=== PATIENT | male | born 1945 | race Caucasian/White ===

== ENCOUNTER 2017-05-27 13:07 | Inpatient (IN) | payer MEDICARE ==
[2017-05-27] MEDS ORDERED: ISOVUE-370 76%-LOCM 1 ML ONE (13:28)
[2017-05-27 14:01] LABS: #Basophils 0.1 thou/uL (0.0-0.2); #Eosinphils 0.1 thou/uL (0.0-0.7); #Lymphocytes 1.6 thou/uL (1.20-3.40); #Monocytes 0.6 thou/uL (0.11-0.59); #Neutrophils 12.2 thou/uL (1.40-6.50); %Basophils 0.6 % (0.0-1.0); %Eosinophils 0.4 % (0.0-10.0); %Monocytes 3.9 % (0.0-10.0); Hematocrit 44.8 % (42.0-52.0); Mean Platelet Volume 7.1 fL (7.4-10.4); White Blood Cell (WBC) Count 14.5 thou/uL (4.8-10.8)
[2017-05-27 14:22] LABS: ALT (SGPT) 17 U/L (8-55); AST (SGOT) 29 U/L (5-34); Alkaline Phosphatase 55 U/L (40-150); Anion Gap 17 mmol/L (10-20); BUN (Urea Nitrogen) 25 mg/dL (8.4-25.7); Bilirubin, Total 0.6 mg/dL (0.2-1.2); Calc. Creatinine Clearance 0 mL/min (70-130); Calcium 9.6 mg/dL (7.8-10.44); Carbon Dioxide 27 mmol/L (23-31); Chloride 99 mmol/L (98-107); Estimated GFR-MDRD 44; Globulin 3.5 g/dL (2.4-3.5); Protein, Total 7.7 g/dL (5.8-8.1)
[2017-05-27 14:27] LABS: Troponin I 0.014 ng/mL (< 0.028)
[2017-05-27 15:37] LABS: Lactic Acid - Sepsis 2.7 mmol/L (0.5-2.2)
[2017-05-27 15:45] LABS: CK (CPK) 181 U/L (30-200); Lipase 27 U/L (8-78)
[2017-05-27] MEDS ORDERED: Pantoprazole 40 MG VIAL ONE (16:05)
[2017-05-27 16:08] LABS: Prothrombin Time 14.7 SEC (12.0-14.7)
[2017-05-27 16:09] LABS: PTT 29.6 SEC (22.9-36.1)
[2017-05-27] MEDS ORDERED: Pantoprazole 80 MG, Admixture Fee 1 EACH in Sodium Chloride 0.9% 100 ML IVP SCH (16:15)
[2017-05-27] MEDS ORDERED: Ondansetron HCl/PF 4 MG/2 ML Vial ONE (16:57)
[2017-05-27] MEDS ORDERED: Morphine 4 MG/ML Carpuject ONE (16:57)
[2017-05-27] MEDS ORDERED: Piperacillin/Tazobactam 3.375 GM, Admixture Fee 1 EACH in Sodium Chloride 0.9% 100 ML IVPB SCH (17:15)
--- NOTE | 2017-05-27 17:31 | CT ---
CT ABDOMEN AND PELVIS WITH IV CONTRAST: Date: 05/27/17 HISTORY: Nausea, vomiting, and abdominal pain radiating to the back, periumbilical pain. FINDINGS: There are no previous exams for comparison. The lung bases are clear. A couple of low density lesions in the superior aspect of the liver measur ing 8.0 mm and 11.0 mm, respectively. No calcified gallstones are seen. Calcified granulomas are not ed in the spleen. The renal glands, right kidney, and pancreas are unremarkable. There is a peripherally calcified low density mass in the gastrohepatic ligament anterior to the bod y of the pancreas measuring 3.0 x 3.0 x 4.5 cm. There is a heterogeneously enhancing mass in the superior pole of the left kidney measuring 3.5 x 3. 2 x 4.5 cm. Other low density lesions in the left kidney are likely cysts. No thrombus is seen in th e left renal vein. No free air is identified. There is free fluid in the lower abdomen and a tiny am ount in the pelvis. There are vascular calcifications without evidence of aneurysmal dilatation of t he abdominal aorta. There is thickening of the wall of the colon and some of the small bowel loops. No definite lymphadenopathy is identified. The urinary bladder is markedly distended. There are dege nerative changes in the spine. There is suggestion of omental thickening in the lower anterior abdomen. IMPRESSION: 1. Heterogeneously enhancing left renal mass (3.5 x 3.2 x 4.5 cm) highly suspicious for renal cell carcinoma. 2. Indeterminate low density lesion in the liver. 3. Peripherally calcified low density mass in the gastrohepatic ligament measuring 3.0 x 3.0 x 2.5 cm. 4. Calcified granulomas in the spleen. 5. Free fluid in the abdomen and pelvis. 6. Thickening of the toro of the colon and some of the small bowel loops. 7. Probable Omental thickening suspicious for metastatic disease. POS: H
[2017-05-27] MEDS ORDERED: Midazolam HCl 2 mg/2 ml Vial ONE ×2 (18:42→19:22)
[2017-05-27] MEDS ORDERED: Norepinephrine 8 MG/0.9% NS 0 ML ONE (18:42)
[2017-05-27] MEDS ORDERED: Fentanyl 100 MCG/2 ML VIAL ONE ×4 (18:42→20:42)
--- NOTE | 2017-05-27 19:08 | HP ---
HISTORY OF PRESENT ILLNESS: Manuel Cassidy is a 71-year-old male, retired rangel, presents to the mergewiy room with acute onset of generalized abdominal pain radiating to his back last night. He w as evaluated by Dr. Hicks. He has a rigid abdomen. White count is 14, hemoglobin 14, 84% neutro phils. Sodium 138, potassium 4.7, creatinine 1.55 (chronic). Lactic acid 2.7. The patient underwe nt a CAT scan of the abdomen and pelvis revealing some free fluid in his abdomen, a left renal mass 3.5 x 4.5 cm, multiple liver densities, gastrohepatic ligament 3 x 3 x 2.5 cm density, splenic granu philip. Findings consistent with renal cell carcinoma with mets. He has omental thickening, thicken ed small bowel and colon. The patient has such a rigid abdomen and pain that I am seeing him for th at concern. ALLERGIES: None. TOBACCO: None. ALCOHOL: None. MEDICATIONS: Aspirin 81 mg a day, carvedilol 25 mg a day, Crestor 40 mg a day, Lasix 40 mg a day, CoQ10 of 100 mg a day, multivitamins daily, valsartan 80 mg a day, duloxetine 30 mg a day, vitamin D 3 150 mg a day, B complex daily. 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 There is evidence of 2013, colonoscopy with polypectomy by Dr. Ordoñez, tubular adenoma. PAST MEDICAL HISTORY: Lymphoma, right groin biopsy, treated [place] [address] Grayson, chemoradiation therapy, no evidence of disease in 2001. He does not recall the urologist's name he saw for his BP H and TURP. He is followed by Dr. Richardson for his cardiomyopathy. He has had three defibrillators , most recent one placed two months ago, EF is 25%, cardiomyopathy, COPD. Noted tobacco cessation i n the past. REVIEW OF SYSTEMS: Ten point noncontributory. PHYSICAL EXAMINATION: GENERAL: The patient is in acute abdominal pain. VITAL SIGNS: Weight 56 kilograms, blood pressure 156/79, pulse 63, respiratory rate 18. HEAD, EYES, EARS, NOSE AND THROAT: Unremarkable. LUNGS: Clear to auscultation. CARDIAC: Regular rate and rhythm without murmur or gallop. ABDOMEN: Nondistended. It is rigid with peritoneal signs. I cannot touch it without exquisite ten derness; it is board like. EXTREMITIES: Unremarkable. LABORATORIES: As noted above. ASSESSMENT AND PLAN: 1. Rigid abdomen, acute onset of abdominal pain, nausea, vomiting, and had a bloody stool in the em ergency room. On CAT scan, he has thickened small bowel and colon. We would recommend laparotomy t o rule out ischemic necrotic bowel. Further recommendations based on operative findings. 2. Evidence of left renal cell carcinoma with metastatic disease, liver metastasis, omental thicken ing and gastrohepatic ligament mass, 3. History of lymphoma. 4. History of cardiomyopathy with defibrillator, followed by Dr. Richardson. 5. History of chronic obstructive pulmonary disease. The patient was well prior to this illness an d functional and doing well.
[2017-05-27] MEDS ORDERED: Etomidate 20 MG/10 ML VIAL ONE (19:32)
[2017-05-27] MEDS ORDERED: Succinylcholine Chloride 20 MG/ML 10 ml SYRINGE FS ONE (19:32)
[2017-05-27] MEDS ORDERED: Lidocaine 1% PF 5 ML VIAL ONE (19:32)
--- NOTE | 2017-05-27 19:44 | ER ---
DATE OF SERVICE: 05/27/2017 Please refer to the patient's electronic medical record for further details of his visit. In summary, the patient presents with acute onset nausea and vomiting earlier today. He has fairly significant abdominal pain associated with this. He denies any chest pain or shortness of breath, h as had no fever at home. He has not traveled recently, has had no sick contacts, and has not been o n antibiotics in the recent past. He denies any bad food that he may have ingested. Evaluation rev eals findings concerning for renal cell carcinoma with multiple metastases. He will require further evaluation for this. In addition, with a rigid abdomen, colonic wall thickening on CT imaging, and a bloody stool in the ER, combined with an elevated lactate, and concern for ischemic colitis. Bec ause of this, I discussed the case with Dr. Fulton on the Surgical Service, who evaluated the patien t in the emergency department and plans to take the patient to the operating room for further evalua tion. The patient was also evaluated by the Machine Lead Burner Team for medical evaluation gi nay his concurrent findings concerning for new onset metastatic cancer. He remained hemodynamically stable throughout his ER stay. His pain improved mildly with medication. He was given antibiotics as well. The patient and his family were updated the findings and plan, and all their questions we re answered up to this point. He is stable at the time of admission to the ER, though with a guarde d prognosis given the above findings and has multiple comorbid conditions.
[2017-05-27] MEDS ORDERED: Dextrose 50% Abboject 50 ML SYRINGE SLOW IVP PRN (20:31)
[2017-05-27] MEDS ORDERED: hydrALAZINE 20 MG/ML VIAL SLOW IVP PRN (20:31)
[2017-05-27] MEDS ORDERED: Ventilator Sedation Protocol 1 EACH FS SCH (20:45)
[2017-05-27] MEDS ORDERED: Sodium Chloride 0.9% 1,000 ML IV SCH (20:45)
[2017-05-27] MEDS ORDERED: DISCONTINUE PREVIOUS NARCOTIC PAIN MEDICATIONS AND BENZODIAZEPINES FS SCH (20:52)
[2017-05-27] MEDS ORDERED: Propofol 1,000 MG/100 ML VIAL IV PRN (20:52)
[2017-05-27] MEDS ORDERED: Fentanyl 20 MCG/ML 250 ML IVPB SCH (20:52)
[2017-05-27] MEDS ORDERED: Lorazepam 2 MG/ML VIAL SLOW IVP PRN (20:52)
[2017-05-27] MEDS ORDERED: Acetaminophen 325 MG TAB PO PRN (20:56)
[2017-05-27] MEDS ORDERED: Vancomycin HCl 750 GM in Premix Bag 1 BAG IVPB SCH (20:56)
[2017-05-27] MEDS ORDERED: Morphine 4 MG/ML Carpuject SLOW IVP SCH (20:56)
[2017-05-27] MEDS ORDERED: Heparin 5,000 UNITS/ML VIAL SC SCH (21:00)
[2017-05-27] MEDS ORDERED: Famotidine/PF 20 mg/2ml Vial SLOW IVP SCH (21:00)
[2017-05-27] MEDS ORDERED: Ondansetron HCl/PF 4 MG/2 ML Vial IVP PRN (21:09)
[2017-05-27] MEDS ORDERED: Promethazine HCl 25 MG/ML VIAL IM/IV PRN (21:09)
--- NOTE | 2017-05-27 21:15 | CON ---
DATE OF CONSULTATION: 05/27/2017 REASON FOR CONSULTATION: Management of heart failure in the setting of an acute abdomen. PRIMARY IT TECHNICAL SUPPORT SPECIALIST: Dr. Cody Richardson. HISTORY OF PRESENT ILLNESS: Mr. Cassidy is a very pleasant 71-year-old white gentleman, who comes to the hospital for nausea, vomiting, and abdominal pain. He was evaluated in the ER and was diagnose d with an acute abdomen and is scheduled to undergo surgery. The CT of the abdomen showed free flui d as well as a mass in his kidney, this highly suspicious for renal cell carcinoma that might be met astatic to his omentum. He is a patient of Dr. Richardson who follows him for nonischemic cardiomyopa thy with an EF of 30% to 35%. Last time he was seen in the office was in March of this year, he hannon d normal OptiVol and he just had a biventricular AICD placed in January of this year. He has an underl enrrique left bundle branch block and mild CAD and a heart catheterization done to evaluate his LV dysfu nction. Currently, Mr. Cassidy's only complaint is abdominal pain. PAST MEDICAL HISTORY: 1. Nonischemic cardiomyopathy, EF of 30% to 35%. 2. Status post biventricular AICD. 3. Left bundle branch block. 4. Mild coronary artery disease. 5. Diastolic dysfunction. 6. Hyperlipidemia. 7. History of tobacco use. 8. Chronic obstructive pulmonary disease. 9. Non-Hodgkin's lymphoma. 10. History of noncompliance in the past. 11. Chronic kidney disease, stage 3. 12. Cough due to DANYELL inhibitors. PAST SURGICAL HISTORY: 1. Biventricular AICD generator change, just a few months ago. 2. Appendectomy. 3. Left second and third digit amputations after some accident. 4. Right thumb surgery with removal of joint after trauma injury. ALLERGIES: No known drug allergies. OUTPATIENT MEDICATIONS: Include; 1. Aspirin 81 daily. 2. CoQ10. 3. Coreg 12.5 mg b.i.d. 4. Crestor 40 mg a day. 5. Lasix 40 mg daily. 6. Valsartan 80 mg a day. 7. Vitamin B12. 8. Vitamin D3. FAMILY HISTORY: Noncontributory. SOCIAL HISTORY: Continues to smoke cigarettes a day, but he has had up to about 2-1/2 packs a day at times. No alcohol or drug use. REVIEW OF SYSTEMS: A 12-point review of systems was done, it is all negative unless stated in the h istory of present illness. PHYSICAL EXAMINATION: VITAL SIGNS: Temperature 98.2, pulse 63, respiratory rate 18, satting 97% on room air, blood pressu re 156/79. GENERAL: Awake and alert. He is oriented to person and place, difficult to time, in moderate pain. HEENT: Normocephalic, atraumatic. NECK: Supple. LUNGS: Clear. CARDIOVASCULAR: S1, S2. No S3 or S4. There is a grade 3/6 systolic murmur in the right upper ster nal border. ABDOMEN: Painful to palpation with guarding and rebound. EXTREMITIES: No edema. SKIN: Warm and dry. LABORATORY DATA AND IMAGING: Laboratory work was reviewed. White count of 14, hemoglobin of 14, he matocrit of 44, platelet count of 151. Coags were negative. Chemistries were unremarkable except f or creatinine of 1.55. Lactic acid of 2.7, troponin was negative x1. Lipase was 27. Most recent echocardiogram was done in the office in 2013 with an EF of 30% to 35%, moderate MR, [place] stolic dysfunction and sclerotic aortic valve. ASSESSMENT AND PLAN: 1. Acute abdomen: Emergent surgery plan per Dr. Fulton. He given the emergency nature of his situ ation, it is not an issue to take him to the OR, he will need to go at this time. He agrees to proc eed. His risk of an LA is intermediate given his mild coronary artery disease, high risk is just go ing into congestive heart failure, so we would recommend judicious use of fluids and I would prefer Levophed as a pressor if it were to be needed for septic type picture. If it is for heart failure t ype picture, I would recommend dobutamine or dopamine. 2. Nonischemic cardiomyopathy: EF of 30% to 35%. We will repeat an echocardiogram postoperatively to see where he is at, at that time. 3. Possible metastatic disease per primary team. Thank you for letting us to participate in the care of your patient. Dr. Richardson, his primary card iologist, will follow up in the morning.
[2017-05-27] MEDS: Sodium Chloride 0.9% 1,000 ML IV SCH (21:22)
--- NOTE | 2017-05-27 21:34 | RAD ---
AP VIEW CHEST 05/27/17 HISTORY: Ventilator dependent patient. AP view chest obtained on 05/27/17. Comparison made to a previous exam from 12/22/14. AP view chest demonstrates the patient to be intubated. A dual lead intracardiac defibrillator is se en. A right subclavian central line is in place. The lungs are well aerated. No evidence of active i ntrathoracic disease seen. No evidence of effusions, pneumonia or pneumothorax seen. IMPRESSION: Unremarkable AP view chest. POS: [facility]
[2017-05-27] MEDS: Enoxaparin Sodium 40 MG/0.4 ML SYRINGE SC SCH (21:54)
[2017-05-27 22:00] LABS: Oxyhemoglobin 95.4 % (94.0-97.0); Sodium 140 mmol/L (135-148)
[2017-05-27] MEDS ORDERED: Vancomycin HCl 750 MG in Sodium Chloride 0.9% 250 ML 250 ML IVPB SCH (22:00)
[2017-05-27] MEDS ORDERED: Piperacillin/Tazobactam 2.25 GM, Admixture Fee 1 EACH in Sodium Chloride 0.9% 100 ML IVPB SCH (22:00)
[2017-05-27 22:02] LABS: Mechanical Tidal Volume 500 ml; Modified Allen's Test POSITIVE; Vent YES
[2017-05-27 22:03] LABS: Mode SIMV; Pressure Support 10 cmH2O
[2017-05-27] MEDS ORDERED: Piperacillin/Tazobactam 3.375 GM in Sodium Chloride 0.9% 100 ML IVPB SCH (23:59)
[2017-05-28] MEDS: Piperacillin/Tazobactam 2.25 GM, Admixture Fee 1 EACH in Sodium Chloride 0.9% 100 ML IVPB SCH ×3 (02:04→17:43)
[2017-05-28 04:38] LABS: #Lymphocytes 1.5 thou/uL (1.20-3.40); #Monocytes 0.9 thou/uL (0.11-0.59); #Neutrophils 9.8 thou/uL (1.40-6.50); %Lymphocytes 12.3 % (21.0-51.0); %Monocytes 7.6 % (0.0-10.0); Hematocrit 41.4 % (42.0-52.0); Mean Platelet Volume 6.9 fL (7.4-10.4); Red Blood Cell (RBC) Count 4.13 mill/uL (4.70-6.10); White Blood Cell (WBC) Count 12.2 thou/uL (4.8-10.8)
[2017-05-28 05:02] LABS: Anion Gap 13 mmol/L (10-20); BUN (Urea Nitrogen) 27 mg/dL (8.4-25.7); Calc. Creatinine Clearance 36 mL/min (70-130); Calcium 7.7 mg/dL (7.8-10.44); Carbon Dioxide 22 mmol/L (23-31); Chloride 110 mmol/L (98-107); Estimated GFR-MDRD 46
--- NOTE | 2017-05-28 06:12 | HP-2 ---
DATE OF ADMISSION: 05/27/2017 TIME: 1645 hours. CODE STATUS: DO NOT RESUSCITATE. PRIMARY CARE PHYSICIAN: Taylor morales. ATTENDING: Kaylin Gillespie DO RESIDENT: Manuel Lew DO HISTORIAN: Patient. SPECIALISTS: None. CHIEF COMPLAINT: Abdominal pain. HISTORY OF PRESENT ILLNESS: A 71-year-old male with abdominal pain and nausea and vomiting, that onset sometime this morning and progressively became worse throughout the day, presented in the emergency room due to the intense nature of the pain. He has no prior history of abdominal problems. He has no prior history of similar pains. While in the ER, there was concern for an acute abdomen. Patient was sent for CT; en route to CT, the patient had a bowel movement that consisted of bright red blood and clots. Patient has never had a similar occurrence. The patient denies recent history or previous history of black tarry stools or any melanotic stools. While in the ER, CT showed thickening of the colon wall, concerning for bowel ischemia. Additionally, CT showed what appears to be a renal cell cancer, metastatic throughout the mesentery. General Surgery was consulted from the ER, Dr. Fulton saw the patient and decided to take the patient to the OR for an exploratory laparotomy. PAST MEDICAL HISTORY: Include hypertension, coronary artery disease, MO, hyperlipidemia, systolic CHF, CKD 3, COPD, lymphoma with radiation therapy. PAST SURGICAL HISTORY: Patient was in ICD. ALLERGIES: No known drug allergies. MEDICATIONS: Vitamin B12 of 1000 mcg daily, Valsartan 80 mg daily, vitamin D of 1000 international units daily, duloxetine 30 mg daily, rosuvastatin 40 mg daily, Lasix 40 mg daily, Coreg 12.5 mg b.i.d., CoQ10 unknown dosing daily, ASA 81 mg daily, multivitamin. SOCIAL HISTORY: Patient smokes approximately 1 pack per week for 60 years. Alcohol, none. Drugs, none. REVIEW OF SYSTEMS: General: Denies fever, chills, weight loss, change in appetite, night sweats. Eyes: Denies vision changes or eye pain. ENT: Denies any nasal congestion or rhinorrhea. Respiratory: Denies any cough, congestion. Cardiovascular: Denies chest pain or palpitations. Gastrointestinal: Admits to nausea and vomiting, one incidence of diarrhea with GI bleeding and abdominal pain. Genitourinary: Denies incontinence or dysuria. Skin: Denies rash or lesions. Musculoskeletal: Denies any pain or tenderness. Neuro: Denies any weakness or numbness. Psychiatric: Denies any anxiety or depression. PHYSICAL EXAMINATION: VITAL SIGNS: Blood pressure 145/58, pulse 60, respiratory rate 16, T-max 97.8, pulse oximetry 95% on room air, current weight is 56.7 kilograms. GENERAL: The patient is alert and oriented x3. The patient is clearly in significant pain and finds a difficult to talk to them. HEENT: PERRLA, EOMI. CARDIOVASCULAR: Regular rate and rhythm without murmur. RESPIRATORY: Normal effort. Clear to auscultation bilaterally. No retractions. SKIN: Warm and dry. ABDOMEN: Rigid, tender to palpation especially in the right lower quadrant. There are bowel sounds in all 4 quadrants. No masses can be palpated. EXTREMITIES: No clubbing or edema. MUSCULOSKELETAL: Structures within normal limit. NEUROLOGICAL EXAM: No focal neurological deficits. Cranial nerves II through XII are grossly intact. LABORATORY DATA AND IMAGING: CBC: Hemoglobin 14.5, hematocrit 44.8, white count 14.5, platelets 151, MCV 102, 84% neutrophils. CMP: Sodium 138, potassium 4.7, chloride 99, bicarb 27, BUN 25, creatinine 1.55, glucose 175, calcium 9.8, total serum protein 7.7, albumin 4.2, bilirubin 0.6, AST 29, ALT 17 , alkaline phosphatase 55, lactic acid 2.7, EGFR is 44, CK 181, CK-MB 2.3, troponin is 0.014, lipase is 27. EKG shows a paced rhythm at 61 beats per minute. No other abnormalities noted. Abdominal CT shows a likely renal cell cancer with mets in in the mesentery, thickened bowel concern for ischemia. ASSESSMENT AND PLAN: This is a 71-year-old male with an acute abdomen, likely secondary to an ischemic colitis versus mesenteric ischemia. 1. Acute abdomen, likely secondary to mesenteric ischemia. The patient is going to the OR with Dr. Fulton for an exploratory laparotomy, manage postop, pending surgical recommendations. I will put the patient on bowel rest, pain control, and heparin for anticoagulation afterwards. 2. Hypertension. The patient abhishek this controlled, continue his home Coreg. 3. Chronic kidney disease, 3. The patient is at baseline. Provide fluid support. Monitor BMP daily. 4. Congestive heart failure. Patient is currently stable, does not appear to be in acute exacerbation. Will continue B dwayne and Coreg. 5. Chronic obstructive pulmonary disease. Patient is stable and monitor O2 requirement. 6. Lactic acidosis. Get blood and urine cultures and start vancomycin and Zosyn, renally dosed until infection can be ruled out. 7. Leukocytosis, see lactic acidosis. 8. Possible renal cell cancer. Consult Oncology. MTDD
--- NOTE | 2017-05-28 06:20 | OP ---
PREOPERATIVE DIAGNOSES: Metastatic left renal cell carcinoma, left gastrohepatic calcified mass, li gament mass, acute abdomen. POSTOPERATIVE DIAGNOSES: Calcified cystic left hepatic lobe edge liver mass, acute vascular insuffi ciency of the terminal ileum secondary to adhesions from prior surgery. No evidence of metastatic d isease. Note, the patient has nonischemic cardiomyopathy, 35% to 40% ejection fraction, defibrillat or in place. SURGEON: Kirit Fulton M.D. ANESTHESIA: General. PROCEDURE: Exploratory laparotomy, lysis of adhesions, resection of left lower lobe liver edge, duy cified cystic mass, probably benign. No evidence of metastatic disease found, omentum normal. ANESTHESIA: General. ESTIMATED BLOOD LOSS: Less than 40 mL. BLOOD TRANSFUSED: None. INDICATIONS: The patient preoperatively had a CAT scan suggesting metastatic left renal cell carcin nataliya, new diagnosis. He has history of lymphoma. He has a defibrillator with the nonischemic cardio myopathy. The patient had a rigid abdomen despite paucity of CAT scan findings. CAT scan reviewed and is felt that a segment of the small bowel loop had nonperfusion ischemic bowel suspected with a lactic acid elevation and his acute severe pain and a board-like rigid abdomen. DESCRIPTION OF PROCEDURE: The patient taken to the operating room where under general anesthesia, r ight subclavian vein central line was placed. Periclavicular area was prepared with ChloraPrep, karl ped in routine fashion. Infraclavicular approach used. Seldinger technique used to place triple lum en catheter, secured with 3-0 silk suture. Biopatch sterile dressing applied. Each port aspirated blood and flushed saline solution. Abdomen was prepared with ChloraPrep, draped in routine fashion. Shah catheter had been placed and a coude was required. The patient had 500 mL of urine. His bladder decompressed. Abdominal cavit y entered sharply to the midline incision. The patient had a prior appendectomy through a right par amedian incision. There were omental adhesions. On entering the abdominal cavity, there is bloody ascites fluid. This was aspirated. Terminal ileum was ischemic. Once the adhesions were taken chirag n, this segment of ileum was placed in the right lower quadrant small bowel run noted to be normal o therwise and small. NG tube placed and noted to be in good position. The gastrohepatic ligament ma ss seen on the CAT scan revealed a calcified cystic mass at the edge of the left lobe of liver. Thi s was from the gastrohepatic ligament using cautery and then taken down from the edge of t he liver using cautery and submitted to pathology. Hemostasis gained with cautery. Surgicel applie d and sequestered in the left upper quadrant and packed. Small bowel was then inspected and noted t o be well perfused and viable and resection was not necessary. Abdominal cavity was irrigated with saline solution, irrigant evacuated. Liver edge inspected. Good hemostasis noted. Surgicel left. Sponge, needle, and instrument counts were correct. Seprafilm applied and fascia approximated with continuous suture of #1 PDS. Skin and subcutaneous tissues irrigated, skin approximated with staple s. Sterile dressing applied. Note, no evidence of metastatic disease. Omentum appeared to be nor mal. Liver was grossly palpated. It is normal and visualized normal right and left lobes. No evid ence of metastatic disease appreciated, although he is noted on CAT scan to have a left renal mass t hat will need to be addressed.
--- NOTE | 2017-05-28 07:00 | ADD-HP ---
DATE OF ADMISSION: 05/27/2017 ATTENDING: Kaylin Gillespie DO RESIDENT: DO Dr. Louann Monsivais's H and P reviewed and the case discussed. Pertinent portions of the history and physic al were repeated by myself. I agree with the assessment and plan with the following addendum: Mr. Cassidy is an unfortunate 71-year-old male with past medical history of coronary artery disease, status post stent; history of lymphoma, status post chemotherapy in 2000; BPH; nonischemic cardiomyopathy with an ejection fraction of 25%; AICD; and COPD, who presented to the ER with acute abdominal pain and GI bleed. CT scan was done that showed left renal mass, concerning for renal ce ll carcinoma with metastatic disease including liver and omental metastasis. Given his acute abdome n and GI bleed, he was taken emergently to the OR from the ER by Dr. Fulton, but he is still waiting for the op-note, find out exactly what happened during his time in the OR. He is currently in the ICU and being ventilated, his last pH was 7.34 with a pCO2 of 36, pO2 of 97. We will leave his vent settings alone where they are at this time. It is possible that he will be extubated tomorrow depe nding on his clinical condition. His most recent H and H was 14.5, we will repeat this tonight afte r his GI bleed to ensure that he is not becoming acutely anemic. We will continue vancomycin and Zo syn for now and Lovenox is ordered by Dr. Fulton.
[2017-05-28] MEDS: Sodium Chloride 0.9% 1,000 ML IV SCH (07:04)
--- NOTE | 2017-05-28 07:35 | PDOC.FM ---
- Subjective Subjective: Pt remains intubated. Sedation currently turned off. No adverse events overnight per nursing. - Objective MAR Reviewed: Yes Vital Signs & Weight: Vital Signs (12 hours) Temp Pulse Resp BP Pulse Ox 05/28/17 06:38 116 H 99/57 L 05/28/17 06:00 16 05/28/17 04:00 99.2 F 16 05/28/17 02:18 92 107/67 05/28/17 02:00 21 H 05/28/17 00:00 98.0 F 16 05/27/17 22:29 82 154/71 H 05/27/17 22:00 16 05/27/17 21:00 97.6 F 05/27/17 20:45 97.6 F 82 16 149/64 H 99 Weight Weight 57.4 kg Most Recent Monitor Data Heart Rate from ECG 103 NIBP 99/57 NIBP BP-Mean 83 Respiration from ECG 16 SpO2 97 I&O: 05/27/17 05/28/17 05/29/17 06:59 06:59 06:59 Intake Total 1065.7 Output Total 570 Balance 495.7 Result Diagrams: 05/28/17 04:20 05/28/17 04:20 <Ally Mar - Last Filed: 05/28/17 10:33> - Objective Vital Signs & Weight: Vital Signs (12 hours) Temp Pulse Pulse Pulse Pulse Pulse Resp 05/28/17 19:13 05/28/17 19:12 95 20 05/28/17 15:52 118 H 124 H 117 H 112 H 05/28/17 15:00 99.4 F 05/28/17 14:11 91 23 H 05/28/17 12:00 99.8 F H 05/28/17 10:56 90 20 05/28/17 08:45 99.5 F 116 H 23 H 05/28/17 08:38 BP BP BP BP Pulse Ox Pulse Ox Pulse Ox 05/28/17 19:13 96 05/28/17 19:12 96 05/28/17 15:52 82/55 L 66/45 L 78/50 L 77/51 L 97 97 05/28/17 15:00 05/28/17 14:11 05/28/17 12:00 05/28/17 10:56 05/28/17 08:45 05/28/17 08:38 98 Pulse Ox Pulse Ox 05/28/17 19:13 05/28/17 19:12 05/28/17 15:52 97 97 05/28/17 15:00 05/28/17 14:11 05/28/17 12:00 05/28/17 10:56 05/28/17 08:45 05/28/17 08:38 Weight Admit Weight 57.153 kg Weight 57.4 kg Most Recent Monitor Data Heart Rate from ECG 87 NIBP 114/44 NIBP BP-Mean 83 Respiration from ECG 21 SpO2 97 I&O: 05/27/17 05/28/17 05/29/17 06:59 06:59 06:59 Intake Total 1065.7 1920 Output Total 570 510 Balance 495.7 1410 Result Diagrams: 05/28/17 04:20 05/28/17 04:20 <Fermin Cain - Last Filed: 05/28/17 20:20> Phys Exam - Physical Examination Constitutional: NAD Respiratory: clear to auscultation bilateral Cardiovascular: no significant murmur, no rub tachycardic Gastrointestinal: soft, no distention bandage covering midline incision. Musculoskeletal: no edema <Ally Mar - Last Filed: 05/28/17 10:33> Dx/Plan (1) Acute respiratory failure with hypoxia Code(s): J96.01 - ACUTE RESPIRATORY FAILURE WITH HYPOXIA Status: Acute Plan: Pt currently on vent, but is weanable per respiratory. Likely extubation this morning. (2) Tachycardia Code(s): R00.0 - TACHYCARDIA, UNSPECIFIED Status: Acute Plan: Likely secondary to dehydration. Will increase maintenance fluids. monitor urine output. (3) Small bowel ischemia Code(s): K55.9 - VASCULAR DISORDER OF INTESTINE, UNSPECIFIED Status: Acute Plan: secondary to adhesions from prior surgery. POD 1 s/p lysis of adhesions. Pt tolerated surgery well. Bowel rest for now. Will advance diet as tolerated. Surgery recommendations appreciated. (4) Renal cell carcinoma Code(s): C64.9 - MALIGNANT NEOPLASM OF UNSP KIDNEY, EXCEPT RENAL PELVIS Status : Acute Qualifiers: Laterality: left Qualified Code(s): C64.2 - Malignant neoplasm of left kidney, except renal pelvis Plan: Left renal mass suspicious for renal cell carcinoma. Pt will need outpatient urological evaluation for tissue confirmation. (5) Non-ischemic cardiomyopathy Code(s): I42.8 - OTHER CARDIOMYOPATHIES Status: Acute Plan: Will repeat Echo this morning. (6) CKD (chronic kidney disease) stage 3, GFR 30-59 ml/min Code(s): N18.3 - CHRONIC KIDNEY DISEASE, STAGE 3 (MODERATE) Status: Chronic Plan: Stable. (7) CAD (coronary artery disease) Code(s): I25.10 - ATHSCL HEART DISEASE OF [place] CORONARY ARTERY W/O ANG PCTRS Status: Chronic Plan: Continue current medical management. (8) Hyperlipidemia Code(s): E78.5 - HYPERLIPIDEMIA, UNSPECIFIED Status: Acute Plan: Continue current medication regimen. (9) Lymphoma in remission Code(s): C85.90 - NON-HODGKIN LYMPHOMA, UNSPECIFIED, UNSPECIFIED SITE Status: Acute (10) Congestive heart failure Code(s): I50.9 - HEART FAILURE, UNSPECIFIED Status: Acute Plan: Will obtain repeat Echo. (11) COPD (chronic obstructive pulmonary disease) Status: Chronic Plan: Duonebs Prn. <Ally Mar - Last Filed: 05/28/17 10:33> Attending Addendum - Attending Addendum I personally evaluated the patient and discussed the management with Dr. Mar this morning. I agree with the History, Examination, Assessment and Plan documented above with any addition or exceptions noted below. We will more aggressively hydrate via IV. GI prophylaxis, pain control confirmed. Addition of D5 NS fluid for ketotic state. Patient was extubated by the time I rounded this morning. <Fermin Cain - Last Filed: 05/28/17 20:20>
[2017-05-28 07:43] LABS: Oxyhemoglobin 96.7 % (94.0-97.0); Sodium 140 mmol/L (135-148)
[2017-05-28 07:46] LABS: Modified Allen's Test POSITIVE; Pressure Support 10 cmH2O; Spontaneous Rate 25 min; Vent YES
[2017-05-28 07:47] LABS: Mode SIMV/PS
[2017-05-28] MEDS ORDERED: DC Sedation Protocol FS ONE (08:41)
--- NOTE | 2017-05-28 09:15 | CON ---
DATE OF CONSULTATION: 05/28/2017 HISTORY: Mr. Cassidy is a 71-year-old gentleman who underwent laparotomy by Dr. Fulton yesterday. Jamey dunham was left intubated on the vent. I am being consulted regarding vent management. He has multiple medical problems that are extensively outlined in the H\T\P. He had been seen by Cardiology. The patient apparently has been a DNR. This morning off the vent. He is awake, responsive. PAST MEDICAL HISTORY: Cardiomyopathy, EF 30-35%, status post biventricular AICD, coronary artery di sease, diastolic dysfunction, COPD, non-axillary lymphoma, renal failure, cough secondary to DANYELL jef arently. He appears to be a severely deconditioned gentleman. He presented to the hospital with abdominal pain on 05/27/2017. He apparently underwent some kind of resection of the liver. There is evidence of left renal cell carcinoma with metastasis to the liver and omentum. MEDICATIONS FROM HOME: Crestor 40, CoQ10, vitamin, Cozaar 25, Lasix 20, Coreg 12.5, Symbicort and a spirin. He is now getting Zosyn, vancomycin, and nebulizer treatments. PHYSICAL EXAMINATION: GENERAL: He is awake, responsive. VITAL SIGNS: Blood pressure is 92/57, pulse 123, O2 sat 96%, respiratory rate 22. CHEST: Decreased breath sounds without any wheezing. CARDIAC: Normal S1-S2. No gallops. ABDOMEN: Soft. No masses. LABORATORY: White count 12,000, H\T\H 13 and 41, platelet count is 132, PO2 of 125, PCO2 39, BUN 29 , creatinine 1.9, sodium 140, chloride 101. IMPRESSION: 1. Status post lap. Please review Dr. Fulton's surgeon's note. 2. Chronic obstructive pulmonary disease. 3. Ischemic cardiomyopathy. 4. Probably metastatic disease with liver biopsy. Procedure performed including lysis of adhesions, laparotomy, resection of the left lower lobe of li yoanna, calcified cystic mass. Apparently no evidence of metastatic disease was found. PLAN: Will hold sedation. Will try and wean and extubate. Continue neb treatments, supportive car e. Will follow. Forty-five minute critical care time.
[2017-05-28] MEDS ORDERED: Sodium Chloride 0.9% 1,000 ML IV SCH (09:45)
[2017-05-28] MEDS ORDERED: Dextrose 5 % And 0.9 % NaCl 1,000 ML IV SCH (09:45)
[2017-05-28] MEDS ORDERED: Morphine 4 MG/ML Carpuject SLOW IVP PRN (09:45)
--- NOTE | 2017-05-28 09:57 | RAD ---
1 VIEW CHEST: Date: 05/28/17 HISTORY: Chest tube placement. COMPARISON: 05/27/17. FINDINGS: Portable semiupright chest demonstrates endotracheal tube, nasogastric tube, left-sided transvenous defibrillator. Normal cardiac silhouette. Pulmonary vessels and hilum are normal. Costophrenic angle s are clear. No consolidation or mass. No pneumothorax or osseous abnormalities. Stable right-sided central venous catheter. IMPRESSION: No significant interval change. POS: [facility]
[2017-05-28] MEDS: Acetaminophen 650 MG in Premix Bag 1 BAG IVPB SCH ×3 (10:03→23:27)
[2017-05-28 11:06] LABS: Troponin I 0.014 ng/mL (< 0.028)
--- NOTE | 2017-05-28 13:07 | PRG ---
DATE OF SERVICE: 05/28/2017 Manuel Cassidy is doing well today. He was extubated early this morning. He is awake. NG tube is pre sent. Output has not been recorded. Shah output 570 mL. PHYSICAL EXAMINATION: LUNGS: Clear to auscultation. CARDIAC: Regular rate and rhythm without murmur or gallop. ABDOMEN: Soft, nondistended. Diminished bowel sounds. Wound intact. EXTREMITIES: Unremarkable. LABORATORY DATA: White count 12, hemoglobin 13, sodium 141, potassium 4.4, 110 chloride, BUN 27, cr eatinine 1.49. ASSESSMENT AND PLAN: 1. Chronic kidney disease, stable. No change. 2. Await GI function as terminal ileum segment that was ischemic is edematous and it may take a whi le to recover. He can have sips and chips, gum and hard candy. Hopefully, the NG tube can be remov ed tomorrow. Dr. Fraire is covering the weekend. He will be seeing him. The patient should incre ase activity up out of bed and ambulate and up in a chair.
[2017-05-28] MEDS: Sodium Chloride 0.45% 1,000 ML IV SCH ×2 (13:22→17:43)
[2017-05-28] MEDS: Ondansetron HCl/PF 4 MG/2 ML Vial IVP PRN (15:13)
[2017-05-28] MEDS: Enoxaparin Sodium 40 MG/0.4 ML SYRINGE SC SCH (20:09)
[2017-05-29] MEDS: Piperacillin/Tazobactam 2.25 GM, Admixture Fee 1 EACH in Sodium Chloride 0.9% 100 ML IVPB SCH ×3 (02:52→17:38)
[2017-05-29] MEDS: Sodium Chloride 0.45% 1,000 ML IV SCH (02:52)
[2017-05-29 04:45] LABS: Anion Gap 12 mmol/L (10-20); BUN (Urea Nitrogen) 49 mg/dL (8.4-25.7); Calc. Creatinine Clearance 23 mL/min (70-130); Calcium 7.5 mg/dL (7.8-10.44); Carbon Dioxide 21 mmol/L (23-31); Chloride 108 mmol/L (98-107); Estimated GFR-MDRD 28
[2017-05-29 04:51] LABS: #Lymphocytes 1.1 thou/uL (1.20-3.40); #Neutrophils 12.5 thou/uL (1.40-6.50); %Basophils 0.1 % (0.0-1.0); %Lymphocytes 7.2 % (21.0-51.0); %Monocytes 6.5 % (0.0-10.0); Hematocrit 30.2 % (42.0-52.0); Mean Platelet Volume 7.1 fL (7.4-10.4); Red Blood Cell (RBC) Count 2.95 mill/uL (4.70-6.10); White Blood Cell (WBC) Count 14.5 thou/uL (4.8-10.8)
[2017-05-29] MEDS: Acetaminophen 650 MG in Premix Bag 1 BAG IVPB SCH ×2 (05:14→11:11)
--- NOTE | 2017-05-29 06:30 | PDOC.FM ---
- Subjective Subjective: Patient appears stable. Complaining of abdominal tenderness. - Objective MAR Reviewed: Yes Vital Signs & Weight: Vital Signs (12 hours) Temp Pulse Resp Pulse Ox 05/29/17 06:04 91 22 H 05/29/17 04:00 98.5 F 05/29/17 02:44 98 05/29/17 00:00 98.3 F 05/28/17 22:59 99 27 H 99 05/28/17 20:00 98.8 F 87 21 H 05/28/17 19:13 96 05/28/17 19:12 95 20 96 Weight Admit Weight 57.153 kg Weight 57.4 kg Most Recent Monitor Data Heart Rate from ECG 90 NIBP 113/51 NIBP BP-Mean 68 Respiration from ECG 20 SpO2 98 I&O: 05/27/17 05/28/17 05/29/17 06:59 06:59 06:59 Intake Total 1065.7 4094 Output Total 570 1025 Balance 495.7 3069 Result Diagrams: 05/29/17 06:59 05/29/17 04:15 <Ally Mar - Last Filed: 05/30/17 07:22> - Objective Vital Signs & Weight: Vital Signs (12 hours) Temp Pulse Resp BP Pulse Ox 05/30/17 08:00 98 F 92 18 117/63 91 L 05/30/17 07:57 98.1 F 92 18 117/63 91 L 05/30/17 06:12 88 14 93 L 05/30/17 04:00 97.6 F 88 18 128/67 91 L 05/30/17 02:29 16 05/30/17 00:00 98.6 F 92 14 139/67 05/29/17 22:22 12 Weight Admit Weight 57.153 kg Weight 57.4 kg Most Recent Monitor Data Heart Rate from ECG 98 NIBP 118/58 NIBP BP-Mean 67 Respiration from ECG 26 SpO2 92 I&O: 05/29/17 05/30/17 05/31/17 06:59 06:59 06:59 Intake Total 4094 3942 Output Total 1025 1575 Balance 3069 2367 Result Diagrams: 05/30/17 06:00 05/30/17 06:00 <Darling Clifton - Last Filed: 05/30/17 09:19> Phys Exam - Physical Examination Constitutional: NAD HEENT: PERRLA Respiratory: clear to auscultation bilateral Cardiovascular: RRR rigid, diffuse tenderness to palpation with guarding. Musculoskeletal: pulses present Neurological: moves all 4 limbs Psychiatric: A&O x 3 <Ally Mar - Last Filed: 05/30/17 07:22> Dx/Plan (1) Small bowel ischemia Code(s): K55.9 - VASCULAR DISORDER OF INTESTINE, UNSPECIFIED Status: Acute Plan: POD 2 s/p exploratory laparotomy with lysis of adhesions. Worsening of abdominal exam compared to yesterday. Will await surgery recommendations. Bowel rest for now. NG to suction. (2) Acute blood loss anemia Code(s): D62 - ACUTE POSTHEMORRHAGIC ANEMIA Status: Acute Plan: Hgb: 9.6 today. Potentially intra-abdominal cause related to surgery vs GI loss vs. dilutional. (3) Acute kidney injury superimposed on chronic kidney disease Code(s): N17.9 - ACUTE KIDNEY FAILURE, UNSPECIFIED; N18.9 - CHRONIC KIDNEY DISEASE, UNSPECIFIED Status: Acute Plan: BUN:Cr > 20, potentially prerenal cause. Will add 500 cc bolus. urine Na and urine Cr ordered to check FENa (4) Renal cell carcinoma Code(s): C64.9 - MALIGNANT NEOPLASM OF UNSP KIDNEY, EXCEPT RENAL PELVIS Status : Acute Qualifiers: Laterality: left Qualified Code(s): C64.2 - Malignant neoplasm of left kidney, except renal pelvis Plan: Left renal mass suspicious for renal cell carcinoma. Pt will need outpatient urological evaluation for tissue confirmation. (5) Non-ischemic cardiomyopathy Code(s): I42.8 - OTHER CARDIOMYOPATHIES Status: Acute Plan: Echo shows EF 30-35% Pt has AICD in place. Continue medical management. (6) CKD (chronic kidney disease) stage 3, GFR 30-59 ml/min Code(s): N18.3 - CHRONIC KIDNEY DISEASE, STAGE 3 (MODERATE) Status: Chronic (7) CAD (coronary artery disease) Code(s): I25.10 - ATHSCL HEART DISEASE OF [place] CORONARY ARTERY W/O ANG PCTRS Status: Chronic Plan: Continue current medical management. (8) Hyperlipidemia Code(s): E78.5 - HYPERLIPIDEMIA, UNSPECIFIED Status: Acute Plan: Continue current medication regimen. (9) Lymphoma in remission Code(s): C85.90 - NON-[place]IN LYMPHOMA, UNSPECIFIED, UNSPECIFIED SITE Status: Acute (10) Congestive heart failure Code(s): I50.9 - HEART FAILURE, UNSPECIFIED Status: Acute Plan: Medical management (11) COPD (chronic obstructive pulmonary disease) Status: Chronic Plan: Duonebs Prn. <Ally Mar - Last Filed: 05/30/17 07:22> Attending Addendum - Attending Addendum I personally evaluated the patient and discussed the management with Dr. Mar on 05/29/17. I agree with the History, Examination, Assessment and Plan documented above with any addition or exceptions noted below. The patient's abdomen is rigid. The patient's hemoglobin has dropped. Will discuss with surgery about further injury. Monitoring PRISCA, getting urine studies. <Darling Clifton - Last Filed: 05/30/17 09:19>
[2017-05-29 07:18] LABS: Hematocrit 28.5 % (42.0-52.0)
[2017-05-29] MEDS ORDERED: Sodium Chloride 0.9% 500 ML IV SCH (07:30)
[2017-05-29] MEDS ORDERED: Sodium Chloride 0.9% 1,000 ML IV SCH (08:30)
[2017-05-29 08:41] LABS: Sodium, Urine Less than 20 mmol/L (Not Available)
--- NOTE | 2017-05-29 08:45 | RAD ---
CHEST 1 VIEW: Date: 05/29/17 COMPARISON: 05/28/17. HISTORY: Chest tube. FINDINGS: Interval removal of endotracheal tube. Nasogastric tube extends beyond the diaphragm. Stable left-si ded transvenous defibrillator. Right-sided central venous catheter is unchanged. Lungs are hyperinfl ated. Chronic changes in the lung bases. No pneumothorax. Stable configuration of the cardiac silhou ette. IMPRESSION: Interval removal of endotracheal tube. Otherwise, no significant interval change. POS: [facility]
--- NOTE | 2017-05-29 08:53 | PRG ---
DATE OF SERVICE: 05/29/2017 Postop day #2. SUBJECTIVE: Mr. Cassidy is still complaining of fairly severe abdominal pain, no nausea though not p assing any flatus yet. His NG output is really not that high. PHYSICAL EXAMINATION: VITAL SIGNS: His blood pressure is 116/42 and his heart rate is 81. He is afebrile. Urine output was 515 for the last shift. Gastric drainage is trending down, although it does appear bloody. ABDOMEN: Soft, it is mildly distended. There is no bowel sounds. Midline wound is closed and with out evidence of infection. No significant drainage. ASSESSMENT: Postoperative day 2 exploratory laparotomy. PLAN: I suspect his initial hemoglobin he was hemoconcentrated and so that was not a true assessmen t of his hemoglobin, so the hemoglobin now into the upper 9s probably not a significant drop. Espec ially with his pulse now being normal and urine output being adequate, we will continue to trend tien t hemoglobin and hematocrit. Check later this afternoon. I think he needs one more day of the NG t ube. Of course, we will stop Lovenox for now.
[2017-05-29] MEDS ORDERED: PROVENTIL INHALER 6.7 G (200 INHALATIONS) INH PRN (09:32)
[2017-05-29] MEDS: Sodium Chloride 0.9% 1,000 ML IV SCH ×2 (09:50→12:09)
[2017-05-29] MEDS: Ondansetron HCl/PF 4 MG/2 ML Vial IVP PRN (12:07)
--- NOTE | 2017-05-29 14:50 | PRG ---
DATE OF SERVICE: 05/29/2017 SUBJECTIVE: Mr. Cassidy has been transferred out of the ICU. PHYSICAL EXAMINATION: VITAL SIGNS: He is afebrile, heart rate is 91, respiratory rate is 14, oximetry is 94%, and blood p ressure 128/59. He is not having any respiratory distress since extubation. He has been transferred out of the [facility] care unit. We will follow. There are no acute pulmonary issues at this time.
[2017-05-29] MEDS: Carvedilol 6.25 MG TAB PO SCH (17:05)
[2017-05-29] MEDS: Acetaminophen 1,000 MG in Premix Bag 1 BAG IVPB SCH (17:38)
[2017-05-29] MEDS: Mometasone/Formoterol 120 PUFF INHALER INH SCH (19:11)
[2017-05-29] MEDS ORDERED: Non-Formulary Item 1 EACH (Budesonide-Formoterol [Symbicort 160-4.5] 1 PUFF) INH SCH (21:00)
[2017-05-30] MEDS: Acetaminophen 1,000 MG in Premix Bag 1 BAG IVPB SCH ×4 (00:08→19:02)
[2017-05-30] MEDS: Sodium Chloride 0.9% 1,000 ML IV SCH ×2 (00:13→11:01)
[2017-05-30] MEDS: Piperacillin/Tazobactam 2.25 GM, Admixture Fee 1 EACH in Sodium Chloride 0.9% 100 ML IVPB SCH ×3 (02:59→19:02)
[2017-05-30] MEDS: Mometasone/Formoterol 120 PUFF INHALER INH SCH ×2 (06:25→18:36)
[2017-05-30 06:42] LABS: #Lymphocytes 0.5 thou/uL (1.20-3.40); #Monocytes 0.6 thou/uL (0.11-0.59); %Lymphocytes 5.1 % (21.0-51.0); %Monocytes 5.7 % (0.0-10.0); Hematocrit 22.3 % (42.0-52.0); Mean Platelet Volume 6.8 fL (7.4-10.4); Red Blood Cell (RBC) Count 2.18 mill/uL (4.70-6.10); White Blood Cell (WBC) Count 10.1 thou/uL (4.8-10.8)
[2017-05-30 06:53] LABS: Anion Gap 9 mmol/L (10-20); BUN (Urea Nitrogen) 50 mg/dL (8.4-25.7); Calc. Creatinine Clearance 29 mL/min (70-130); Calcium 7.6 mg/dL (7.8-10.44); Carbon Dioxide 23 mmol/L (23-31); Chloride 112 mmol/L (98-107); Estimated GFR-MDRD 37
--- NOTE | 2017-05-30 07:26 | PDOC.FM ---
- Subjective Subjective: Pt currently appears somnolent. Arousable with abdominal palpation. - Objective MAR Reviewed: Yes Vital Signs & Weight: Vital Signs (12 hours) Temp Pulse Resp BP Pulse Ox 05/30/17 06:12 88 14 93 L 05/30/17 04:00 97.6 F 88 18 128/67 91 L 05/30/17 02:29 16 05/30/17 00:00 98.6 F 92 14 139/67 05/29/17 22:22 12 05/29/17 21:05 98.8 F 05/29/17 20:40 99.0 F 97 14 92 L 05/29/17 20:00 99 F 97 14 122/72 92 L Weight Admit Weight 57.153 kg Weight 57.4 kg Most Recent Monitor Data Heart Rate from ECG 98 NIBP 118/58 NIBP BP-Mean 67 Respiration from ECG 26 SpO2 92 I&O: 05/29/17 05/30/17 05/31/17 06:59 06:59 06:59 Intake Total 4094 2542 Output Total 1025 650 Balance 3069 1892 Result Diagrams: 05/30/17 06:00 05/30/17 06:00 <Ally Mar - Last Filed: 05/30/17 07:51> - Objective Vital Signs & Weight: Vital Signs (12 hours) Temp Pulse Resp BP Pulse Ox 05/30/17 08:00 98 F 92 18 117/63 91 L 05/30/17 07:57 98.1 F 92 18 117/63 91 L 05/30/17 06:12 88 14 93 L 05/30/17 04:00 97.6 F 88 18 128/67 91 L 05/30/17 02:29 16 05/30/17 00:00 98.6 F 92 14 139/67 05/29/17 22:22 12 Weight Admit Weight 57.153 kg Weight 57.4 kg Most Recent Monitor Data Heart Rate from ECG 98 NIBP 118/58 NIBP BP-Mean 67 Respiration from ECG 26 SpO2 92 I&O: 05/29/17 05/30/17 05/31/17 06:59 06:59 06:59 Intake Total 4094 3942 Output Total 1025 1575 Balance 3069 2367 Result Diagrams: 05/30/17 06:00 05/30/17 06:00 <Prema Cliftonine - Last Filed: 05/30/17 09:20> Phys Exam - Physical Examination Constitutional: NAD HEENT: PERRLA Respiratory: clear to auscultation bilateral Cardiovascular: RRR Gastrointestinal: positive bowel sounds well healing mid incision; rigid, diffuse tenderness to palpation; guarding Musculoskeletal: no edema, pulses present <Ally Mar - Last Filed: 05/30/17 07:51> Dx/Plan (1) Small bowel ischemia Code(s): K55.9 - VASCULAR DISORDER OF INTESTINE, UNSPECIFIED Status: Acute Plan: POD 3 s/p exploratory laparotomy with lysis of adhesions and liver mass resection stable abdominal exam compared to yesterday. Will await surgery recommendations. Bowel rest for now. NG to suction. (2) Acute blood loss anemia Code(s): D62 - ACUTE POSTHEMORRHAGIC ANEMIA Status: Acute Plan: Hgb: 7.2 this am from 9.6 yesterday. Likely GI source vs. intrabdominal from surgery. Will transfuse 1 unit PRBC. Discuss with surgery. (3) Hypoxia Code(s): R09.02 - HYPOXEMIA Status: Acute Plan: Pt satting in low 90s Likely secondary to chronic lung changes vs. hypervolemia. Continue duoneb tx. Will schedule one now. (4) Acute kidney injury superimposed on chronic kidney disease Code(s): N17.9 - ACUTE KIDNEY FAILURE, UNSPECIFIED; N18.9 - CHRONIC KIDNEY DISEASE, UNSPECIFIED Status: Acute Plan: Urine studies suggest postobstructive uropathy with FENa of 9.4% Pt has history of BPH but currently has indwelling conrad. No evidence of obstruction mentioned on CT Abd/pelvis. Will order renal US and start conrad for BPH. (5) Renal cell carcinoma Code(s): C64.9 - MALIGNANT NEOPLASM OF UNSP KIDNEY, EXCEPT RENAL PELVIS Status : Acute Qualifiers: Laterality: left Qualified Code(s): C64.2 - Malignant neoplasm of left kidney, except renal pelvis Plan: Left renal mass suspicious for renal cell carcinoma. Pt will need outpatient urological evaluation for tissue confirmation. (6) Non-ischemic cardiomyopathy Code(s): I42.8 - OTHER CARDIOMYOPATHIES Status: Acute Plan: Echo shows EF 30-35% Pt has AICD in place. Continue medical management. (7) CKD (chronic kidney disease) stage 3, GFR 30-59 ml/min Code(s): N18.3 - CHRONIC KIDNEY DISEASE, STAGE 3 (MODERATE) Status: Chronic Plan: Stable. (8) CAD (coronary artery disease) Code(s): I25.10 - ATHSCL HEART DISEASE OF [place] CORONARY ARTERY W/O ANG PCTRS Status: Chronic Plan: Continue current medical management. (9) Hyperlipidemia Code(s): E78.5 - HYPERLIPIDEMIA, UNSPECIFIED Status: Acute Plan: Continue current medication regimen. (10) Lymphoma in remission Code(s): C85.90 - NON-[place] LYMPHOMA, UNSPECIFIED, UNSPECIFIED SITE Status: Acute (11) Congestive heart failure Code(s): I50.9 - HEART FAILURE, UNSPECIFIED Status: Acute Plan: Medical management (12) COPD (chronic obstructive pulmonary disease) Status: Chronic Plan: Duonebs Prn. <Ally Mar - Last Filed: 05/30/17 07:51> Attending Addendum - Attending Addendum I personally evaluated the patient and discussed the management with Dr. Mar. I agree with the History, Examination, Assessment and Plan documented above with any addition or exceptions noted below. The patient's NG output is decreased. Abdomen still mildly distended and tender to palpation. Hemoglobin continues to drop. Will transfuse as pt also has heart disease. Lasix after transfusion. consulting GI as he may have a GI bleed. He had BRBPR noted in the ER. <Darling Clifton - Last Filed: 05/30/17 09:20>
--- NOTE | 2017-05-30 08:58 | PRG ---
DATE OF SERVICE: 05/30/2017 SUBJECTIVE: Mr. Cassidy is confused and sleeping this morning. Family is answering questions for hi m this morning. OBJECTIVE: VITAL SIGNS: He is afebrile, pulse 92, sats are 91% on 2 liters, but his respirations are nonlabore d, blood pressure 117/63. Great urine output, gastric drainage is minimal. ABDOMEN: Soft and it is nondistended. He does have some bowel sounds. ASSESSMENT: Status post exploratory laparotomy, lysis of adhesion. PLAN: We will discontinue NG and then allow ice chips only. Continue physical therapy.
[2017-05-30] MEDS: Rosuvastatin 20 MG TAB PO SCH (09:29)
[2017-05-30] MEDS: Carvedilol 6.25 MG TAB PO SCH ×2 (09:30→17:12)
[2017-05-30] MEDS: Ubidecarenone 50 MG CAP PO SCH (09:30)
[2017-05-30] MEDS: Losartan 25 MG TAB PO SCH (09:31)
[2017-05-30] MEDS: Multivitamin W/ Minerals 1 TAB PO SCH (09:31)
[2017-05-30] MEDS: Aspirin 81 mg Enteric Coated Tablet PO SCH (09:31)
[2017-05-30] MEDS: Furosemide 20 MG TAB PO SCH (09:31)
[2017-05-30] MEDS: Tamsulosin HCl 0.4 MG CAP PO SCH (09:32)
--- NOTE | 2017-05-30 14:01 | CON ---
DATE OF CONSULTATION: 05/30/2017 HISTORY OF PRESENT ILLNESS: The patient is a 71-year-old gentleman, who came to the [facility] en[facility] room with a 24-hour history of severe abdominal pain, nausea, vomiting. He was seen by Dr. Abhilash gayle and was taken to the operating room for exploratory laparotomy. Postoperative diagnosis showed calcified cystic left hepatic lobe edge mass, which was biopsied and acute vascular insufficiency of the terminal ileum secondary to adhesions from prior to surgery. The patient presently reports he is very sore from the surgery. He has had no nausea or vomiting. He has had no bowel movements sin ce surgery. Upon presentation, he has had large amount of maroon stool. He had not had any prior GI bleeding prior to this . He had not had any weight loss. He denies any NSAID use. He underwent a colonoscopy approximately [address] Ordoñez that showed a tubular adenoma. PAST MEDICAL/SURGICAL HISTORY: Significant for congestive heart failure with a decreased ejection f raction of 30-35% and had defibrillator, COPD, history of lymphoma, renal insufficiency. PAST MEDICAL HISTORY: Include appendectomy, multiple finger amputations, defibrillator placement, T URP, colonoscopy. ALLERGIES: No known medical allergies. MEDICATIONS: On admission include CoQ10 one p.o. daily, Crestor 40 mg p.o. daily, multivitamin 1 p. o. daily, Cozaar 25 mg p.o. daily, Lasix 20 mg p.o. every day, Coreg 12.5 mg p.o. b.i.d., Symbicort 1 puff b.i.d., aspirin 81 mg p.o. daily, albuterol 1 puff p.r.n. SOCIAL HISTORY: Continues to smoke up until this hospitalization. Alcohol none. FAMILY HISTORY: Negative. REVIEW OF SYSTEMS: Constitutional: No fever or chills, no weight loss. Eyes: No blurred vision, double vision. ENT: No sore throat or earaches. Cardiovascular: No chest pain or palpitation. P ulmonary: No shortness of breath. No cough. No wheezing. Gastrointestinal: See above. : No hematuria or dysuria. Musculoskeletal: No joint pain or muscle weakness. Skin: No rashes. Neuro logic: No seizure activity. No numbness. PHYSICAL EXAMINATION VITAL SIGNS: Temperature 98.0, pulse 92, respiratory rate 18, blood pressure 117/63. HEENT: Unremarkable. NECK: Supple. CHEST: Clear. CARDIOVASCULAR: Regular rate and rhythm. ABDOMEN: Shows a midline surgical site. He is very tender diffusely, somewhat rigid. Bowel sounds are absent. RECTAL: Deferred. EXTREMITIES: Normal. LABORATORY: Shows an admission hemoglobin of 14.5 has dropped to 7.2. Chemistries show a BUN 50, c reatinine 1.82, glucose 130. Abdominal and pelvic CT showed a heterogeneous enhancing left renal mass suspicious for renal cell c arcinoma and in indeterminate low density lesion in the liver, peripherally calcified low-density ma ss in the gastrohepatic ligament, thickening of the toro of the colon and some small bowel loops. ASSESSMENT: 1. Anemia -- the patient had an initial episode of maroon stool upon presentation, but has not pass ed any stool since that time. His anemia could be multifactorial. I do not think presently he is h aving a GI bleed. At presently, he would not be able to be prepped, also a possibility of postopera tive bleeding is present. 2. Cardiomyopathy with low ejection fraction of 30-35%. 3. Defibrillator placement. 4. Chronic obstructive pulmonary disease. 5. History of colon polyps with last colonoscopy in 2012. 6. Renal mass by CT. 7. Liver mass. 8. Gastrohepatic ligament mass. 9. History of lymphoma. RECOMMENDATIONS: 1. Continuous infusion PPI. 2. Serial H\T\H. 3. The patient may need a repeat scan if H\T\H continues to drop and/or possibly EGD.
[2017-05-30 15:33] LABS: Hematocrit 21.3 % (42.0-52.0)
[2017-05-31] MEDS: Ondansetron HCl/PF 4 MG/2 ML Vial IVP PRN ×2 (00:38→06:32)
[2017-05-31 00:49] LABS: Hematocrit 26.9 % (42.0-52.0)
[2017-05-31] MEDS: Piperacillin/Tazobactam 2.25 GM, Admixture Fee 1 EACH in Sodium Chloride 0.9% 100 ML IVPB SCH ×3 (01:22→18:30)
[2017-05-31] MEDS: Sodium Chloride 0.9% 1,000 ML IV SCH (01:26)
[2017-05-31] MEDS: Mometasone/Formoterol 120 PUFF INHALER INH SCH ×2 (06:23→18:49)
--- NOTE | 2017-05-31 06:46 | PDOC.FM ---
- Subjective Subjective: Pt having some vomiting this am. Nursing attempted to place NG per surgery recommendations, but were unsuccessful. Pt's pulse ox dropped to 80s and pulse increased to 130s. - Objective MAR Reviewed: Yes Vital Signs & Weight: Vital Signs (12 hours) Temp Pulse Pulse Resp BP BP Pulse Ox 05/31/17 06:23 87 18 93 L 05/31/17 06:22 87 18 93 L 05/31/17 03:06 91 L 05/31/17 02:46 16 05/30/17 22:46 12 05/30/17 22:20 98.2 F 87 18 134/65 92 L 05/30/17 20:00 98.4 F 85 16 92 L 05/30/17 19:00 98.4 F 85 18 115/57 L Weight Admit Weight 57.153 kg Weight 57.4 kg Most Recent Monitor Data Heart Rate from ECG 98 NIBP 118/58 NIBP BP-Mean 67 Respiration from ECG 26 SpO2 92 I&O: 05/29/17 05/30/17 05/31/17 06:59 06:59 06:59 Intake Total 4094 3942 1550 Output Total 1025 1575 1000 Balance 3069 2367 550 Result Diagrams: 05/31/17 06:30 05/31/17 06:30 <Ally Mar - Last Filed: 05/31/17 09:13> - Objective Vital Signs & Weight: Vital Signs (12 hours) Temp Pulse Resp BP Pulse Ox 05/31/17 10:02 97 16 94 L 05/31/17 08:00 98 F 89 22 H 128/55 L 88 L 05/31/17 06:23 87 18 93 L 05/31/17 06:22 87 18 93 L 05/31/17 03:06 91 L 05/31/17 02:46 16 05/31/17 01:30 98.2 F 87 18 130/63 92 L 05/30/17 22:46 12 05/30/17 22:20 98.2 F 87 18 134/65 92 L Weight Admit Weight 57.153 kg Weight 57.4 kg Most Recent Monitor Data Heart Rate from ECG 98 NIBP 118/58 NIBP BP-Mean 67 Respiration from ECG 26 SpO2 92 I&O: 05/30/17 05/31/17 06/01/17 06:59 06:59 06:59 Intake Total 3942 2750 Output Total 1575 2900 Balance 2367 -150 Result Diagrams: 05/31/17 06:30 05/31/17 06:30 <McneilNas dunham - Last Filed: 05/31/17 10:51> Phys Exam - Physical Examination Constitutional: NAD Respiratory: clear to auscultation bilateral Cardiovascular: RRR Gastrointestinal: positive bowel sounds wellhealing midline incision; distention and tympany Neurological: non-focal Psychiatric: normal affect, A&O x 3 <Ally Mar - Last Filed: 05/31/17 09:13> Dx/Plan (1) Postoperative ileus Code(s): K91.89 - OTH POSTPROCEDURAL COMPLICATIONS AND DISORDERS OF DGSTV SYS; K56.7 - ILEUS, UNSPECIFIED Status: Acute Plan: NG tube placement unsuccessful. Will attempt to replace later. continue bowel rest. Anti-emetics available PRN. (2) Acute blood loss anemia Code(s): D62 - ACUTE POSTHEMORRHAGIC ANEMIA Status: Acute Plan: Postoperative vs. GI source Hgb 9.5 this AM. Will re-check tomorrow. GI consulted. No plans for intervention this time. Continue GI prophylaxis. (3) Hypoxia Code(s): R09.02 - HYPOXEMIA Status: Acute Plan: Pt satting in low 90s Likely secondary to chronic lung changes vs. volume overload. Will order CXR and order Lasix if pulmonary vascular congestion/edema is present. (4) Acute kidney injury superimposed on chronic kidney disease Code(s): N17.9 - ACUTE KIDNEY FAILURE, UNSPECIFIED; N18.9 - CHRONIC KIDNEY DISEASE, UNSPECIFIED Status: Acute Plan: Improving. Continue to monitor. (5) Renal cell carcinoma Code(s): C64.9 - MALIGNANT NEOPLASM OF UNSP KIDNEY, EXCEPT RENAL PELVIS Status : Acute Qualifiers: Laterality: left Qualified Code(s): C64.2 - Malignant neoplasm of left kidney, except renal pelvis Plan: Left renal mass suspicious for renal cell carcinoma. Pt will need outpatient urological evaluation for tissue confirmation. (6) Non-ischemic cardiomyopathy Code(s): I42.8 - OTHER CARDIOMYOPATHIES Status: Acute Plan: Echo shows EF 30-35% Pt has AICD in place. Continue medical management. (7) CKD (chronic kidney disease) stage 3, GFR 30-59 ml/min Code(s): N18.3 - CHRONIC KIDNEY DISEASE, STAGE 3 (MODERATE) Status: Chronic Plan: Stable. (8) CAD (coronary artery disease) Code(s): I25.10 - ATHSCL HEART DISEASE OF [place] CORONARY ARTERY W/O ANG PCTRS Status: Chronic Plan: Continue current medical management. (9) Hyperlipidemia Code(s): E78.5 - HYPERLIPIDEMIA, UNSPECIFIED Status: Acute Plan: Continue current medication regimen. (10) Lymphoma in remission Code(s): C85.90 - NON-HODGKIN LYMPHOMA, UNSPECIFIED, UNSPECIFIED SITE Status: Acute (11) Congestive heart failure Code(s): I50.9 - HEART FAILURE, UNSPECIFIED Status: Acute Plan: Medical management (12) COPD (chronic obstructive pulmonary disease) Status: Chronic Plan: Duonebs Prn. <Ally Mar - Last Filed: 05/31/17 09:13> Attending Addendum - Attending Addendum I personally evaluated the patient and discussed the management with Dr. Mar I agree with the History, Examination, Assessment and Plan documented above with any addition or exceptions noted below. Up on bedside with therapist. C/o's pain currently. BP's low normal, Tachy with any activity. SaO2's>92%. Vomitted overnight several times. NGtube replaced. Output is blood-tinged, 500ml. CXR pre-NGT placement shows bilateral atelectatic infiltrates bases. Chest BBS with basilar rhales. Will resume IVF maintenance and replacement for GI losses and convert maintenance meds to IV. Monitor H&H trend. Urology eval of mass as OP once recovered from current intervention. <Nas Mcneil - Last Filed: 05/31/17 10:51>
[2017-05-31 06:47] LABS: #Lymphocytes 1.4 thou/uL (1.20-3.40); #Monocytes 1.1 thou/uL (0.11-0.59); #Neutrophils 10.6 thou/uL (1.40-6.50); %Basophils 0.2 % (0.0-1.0); %Lymphocytes 10.5 % (21.0-51.0); %Monocytes 8.3 % (0.0-10.0); Hematocrit 29.3 % (42.0-52.0); Mean Platelet Volume 6.3 fL (7.4-10.4); Red Blood Cell (RBC) Count 2.96 mill/uL (4.70-6.10); White Blood Cell (WBC) Count 13.1 thou/uL (4.8-10.8)
--- NOTE | 2017-05-31 07:36 | PRG ---
DATE OF SERVICE: 05/31/2017 SUBJECTIVE: Mr. Cassidy is now throwing up, was only doing sips yesterday after I removed the NG tub e. OBJECTIVE: Pulse is 87, blood pressure is 134/64, and he is afebrile. Good urine output. He had a couple of small bowel movements. LABORATORY DATA: White cell count is 13 and hemoglobin 9.5. Creatinine was 2.29 yesterday; it is 1 .82 today. Potassium normal at 4.8. ASSESSMENT: Persistent postoperative ileus. PLAN: Replace NG tube.
[2017-05-31 07:47] LABS: Anion Gap 9 mmol/L (10-20); BUN (Urea Nitrogen) 44 mg/dL (8.4-25.7); Calc. Creatinine Clearance 36 mL/min (70-130); Carbon Dioxide 24 mmol/L (23-31); Chloride 112 mmol/L (98-107); Estimated GFR-MDRD 47
[2017-05-31] MEDS: Carvedilol 6.25 MG TAB PO SCH (10:49)
[2017-05-31] MEDS: Furosemide 20 MG TAB PO SCH (10:49)
[2017-05-31] MEDS: Aspirin 81 mg Enteric Coated Tablet PO SCH (10:49)
[2017-05-31] MEDS: Dextrose 5 %-0.45 % NaCl 1,000 ML IV SCH ×2 (10:49→18:38)
[2017-05-31] MEDS: Losartan 25 MG TAB PO SCH (10:50)
[2017-05-31] MEDS: Ubidecarenone 50 MG CAP PO SCH (10:50)
[2017-05-31] MEDS: Tamsulosin HCl 0.4 MG CAP PO SCH (10:50)
[2017-05-31] MEDS: Multivitamin W/ Minerals 1 TAB PO SCH (10:50)
[2017-05-31] MEDS: Rosuvastatin 20 MG TAB PO SCH (10:50)
[2017-05-31] MEDS ORDERED: Ondansetron HCl/PF 4 MG/2 ML Vial IVP PRN (11:51)
[2017-05-31] MEDS ORDERED: Promethazine HCl 25 MG/ML VIAL SLOW IVP PRN (11:51)
--- NOTE | 2017-05-31 11:54 | RAD ---
PORTABLE AP CHEST X-RAY 05/31/2017 HISTORY: Hypoxia. COMPARISON: 05/29/2017 FINDINGS: Nasogastric tube has been removed. Right subclavian central venous catheter remains in place and un changed in position. Triple-lead left subclavian AICD device is stable in position. Cardiac silhou ette and pulmonary vasculature are within normal limits. There has been interval increase in opacit y at the right lung base which may be related to worsening pneumonia. Left lung remains clear. The re does appear to be free peritoneal gas beneath the right hemidiaphragm. No other interval change. IMPRESSION: 1. Free intraperitoneal gas beneath the right hemidiaphragm. The above findings were discussed with Dr. Ally Mar who notes that patient had recent exploratory laparotomy which may account for th is finding. 2. Worsening opacity at the right lung base which may be related to worsening pneumonia. Continued follow-up to complete resolution is recommended. POS: MOOK
[2017-05-31] MEDS ORDERED: Lidocaine 1% PF 5 ML VIAL ONE (11:58)
[2017-05-31] MEDS ORDERED: Propofol 200 MG/20 ML VIAL ONE (11:58)
--- NOTE | 2017-05-31 12:27 | OP ---
PREOPERATIVE DIAGNOSIS: Upper gastrointestinal bleed. DESCRIPTION OF THE PROCEDURE: After informed consent was obtained, the patient was placed in the le ft lateral decubitus position. Anesthesia was administered per the Anesthesia Department. Forward- viewing endoscope was inserted into the esophagus under direct visualization with ease and passed to the second portion of the duodenum with ease. Second portion of the duodenum and duodenal bulb wer e normal. The pylorus, antrum, body, fundus, and cardia were normal except for NG trauma. In the a brooks of the cardia between 2 folds there was very erythematous area. It was unclear whether this was a Lizbeth-Johnson tear, but it was not actively bleeding. The biopsies forceps were used to open up the fold to see if this was an actual tear and complete visualization was not achieved. The esophag us was normal throughout. Blood was completely washed from the stomach and no reaccumulation of blo od was seen. ASSESSMENT: 1. Possible Lizbeth-Johnson tear in the gastric cardia - not actively bleeding. 2. Otherwise normal esophagogastroduodenoscopy. RECOMMENDATIONS: 1. Resume NG suction. 2. PPI. 3. Serial hemoglobin and hematocrit.
[2017-05-31] MEDS ORDERED: Furosemide 40 MG/4 ML VIAL SLOW IVP SCH (12:30)
[2017-05-31] MEDS: MULTIVITAMINS IV SCH ×4 (14:32)
[2017-05-31] MEDS: [UNRECOGNIZED DRUG - OTHER] IV SCH ×4 (14:32)
[2017-05-31] MEDS: MULTITRACE IV SCH ×4 (14:32)
[2017-05-31] MEDS: MAGNESIUM SULFATE IV SCH ×4 (14:32)
[2017-05-31 15:27] LABS: Hematocrit 28.9 % (42.0-52.0)
--- NOTE | 2017-05-31 15:32 | PRG ---
DATE OF SERVICE: 05/31/2017 SUBJECTIVE: This morning, he is awake, alert, responsive. He is nauseated. OBJECTIVE: VITAL SIGNS: Sats 88% on 2 liters, respirations 20, temperature 98, blood pressure is 120/55. His I's and O's are 2740 in and 2900 out. CHEST: Chest reveals decreased breath sounds without any wheezing. CARDIAC: Normal S1, S2. ABDOMEN: No masses. LABORATORY DATA: White count 13,000, platelet count 116. His electrolytes are normal. Creatinine 1.4. X-ray today shows a right-sided infiltrate/effusion. IMPRESSION: 1. Status post laparotomy. 2. Severe deconditioning. 3. Right-sided infiltrate/effusion. PLAN: Continue broad-spectrum antibiotics. Await input from Surgery regarding persistent nausea and vomiting, postop ileus. We will follow.
[2017-05-31 16:12] LABS: Folate,Hemolysate 419.7 ng/mL (Not Estab.); Hematocrit 19.9 % (37.5-51.0); RBC Folate Test Component 2109 ng/mL (>498)
[2017-05-31] MEDS: Morphine 10 MG/ML VIAL SLOW IVP PRN (20:30)
[2017-06-01] MEDS: Morphine 10 MG/ML VIAL SLOW IVP PRN ×5 (00:58→20:34)
[2017-06-01] MEDS: Piperacillin/Tazobactam 2.25 GM, Admixture Fee 1 EACH in Sodium Chloride 0.9% 100 ML IVPB SCH ×3 (01:02→18:56)
[2017-06-01] MEDS: Dextrose 5 %-0.45 % NaCl 1,000 ML IV SCH (05:02)
[2017-06-01] MEDS: Mometasone/Formoterol 120 PUFF INHALER INH SCH ×2 (06:10→18:26)
[2017-06-01 06:28] LABS: Anion Gap 5 mmol/L (10-20); BUN (Urea Nitrogen) 41 mg/dL (8.4-25.7); Calc. Creatinine Clearance 40 mL/min (70-130); Carbon Dioxide 34 mmol/L (23-31); Chloride 111 mmol/L (98-107); Estimated GFR-MDRD 52; Magnesium 2.3 mg/dL (1.6-2.6)
[2017-06-01 06:34] LABS: #Lymphocytes 1.4 thou/uL (1.20-3.40); #Monocytes 1.3 thou/uL (0.11-0.59); #Neutrophils 8.4 thou/uL (1.40-6.50); %Eosinophils 0.1 % (0.0-10.0); %Lymphocytes 12.3 % (21.0-51.0); %Monocytes 11.3 % (0.0-10.0); Mean Platelet Volume 6.3 fL (7.4-10.4)
[2017-06-01 06:35] LABS: Phosphorus 1.8 mg/dL (2.3-4.7)
--- NOTE | 2017-06-01 06:56 | PDOC.FM ---
- Subjective Subjective: Patient states that his pain is better controlled today compared to yesterday. He has no complaints. - Objective MAR Reviewed: Yes Vital Signs & Weight: Vital Signs (12 hours) Temp Pulse Resp BP Pulse Ox 06/01/17 06:07 99 14 94 L 06/01/17 03:35 98.1 F 92 18 115/62 91 L 06/01/17 02:09 97 12 92 L 06/01/17 00:08 98.1 F 90 19 118/63 92 L 05/31/17 22:44 93 16 93 L 05/31/17 20:30 99.3 F 94 20 92 L 05/31/17 20:00 99.3 F 94 20 136/70 91 L Weight Admit Weight 57.4 kg Weight 57.4 kg Most Recent Monitor Data Heart Rate from ECG 98 NIBP 118/58 NIBP BP-Mean 67 Respiration from ECG 26 SpO2 92 I&O: 05/30/17 05/31/17 06/01/17 06:59 06:59 06:59 Intake Total 3942 2750 2070 Output Total 1575 2900 4575 Balance 3946 -764 -2941 Result Diagrams: 06/01/17 05:50 06/01/17 05:50 <Ally Mar - Last Filed: 06/01/17 11:34> - Objective Vital Signs & Weight: Weight Admit Weight 57.4 kg Weight 62.624 kg Most Recent Monitor Data Heart Rate from ECG 98 NIBP 118/58 NIBP BP-Mean 67 Respiration from ECG 26 SpO2 92 Result Diagrams: 06/06/17 06:00 06/04/17 05:59 <Nas Mcneil - Last Filed: 06/12/17 15:18> Phys Exam - Physical Examination Constitutional: NAD Respiratory: clear to auscultation bilateral Cardiovascular: RRR Gastrointestinal: positive bowel sounds well-healing midline incision; tympany/distention unchanged Musculoskeletal: no edema Psychiatric: A&O x 3 <Ally Mar - Last Filed: 06/01/17 11:34> Dx/Plan (1) Postoperative ileus Code(s): K91.89 - OTH POSTPROCEDURAL COMPLICATIONS AND DISORDERS OF DGSTV SYS; K56.7 - ILEUS, UNSPECIFIED Status: Acute Plan: NG tube placement unsuccessful. Will attempt to replace later. continue bowel rest. Anti-emetics available PRN. (2) Metabolic alkalosis Code(s): E87.3 - ALKALOSIS Status: Acute Plan: Likely secondary to GI losses and diuresis. Will replace with IV fluids. (3) Hypophosphatemia Code(s): E83.39 - OTHER DISORDERS OF PHOSPHORUS METABOLISM Status: Acute Plan: Phos 1.8 this morning. Will replace and re-check this afternoon. (4) Acute blood loss anemia Code(s): D62 - ACUTE POSTHEMORRHAGIC ANEMIA Status: Acute Plan: Likely upper GI source related to Lizbeth-Johnson tear, no-longer bleeding per EGD yesterday. H/H has remained stable. Will continue to monitor with AM CBCs (5) Acute kidney injury superimposed on chronic kidney disease Code(s): N17.9 - ACUTE KIDNEY FAILURE, UNSPECIFIED; N18.9 - CHRONIC KIDNEY DISEASE, UNSPECIFIED Status: Acute Plan: Cr resolving back to baseling. BUN remains elevated, possibly related to prior GI bleed. (6) Renal cell carcinoma Code(s): C64.9 - MALIGNANT NEOPLASM OF UNSP KIDNEY, EXCEPT RENAL PELVIS Status : Acute Qualifiers: Laterality: left Qualified Code(s): C64.2 - Malignant neoplasm of left kidney, except renal pelvis Plan: Left renal mass suspicious for renal cell carcinoma. Pt will need outpatient urological evaluation for tissue confirmation. (7) Non-ischemic cardiomyopathy Code(s): I42.8 - OTHER CARDIOMYOPATHIES Status: Acute Plan: Echo shows EF 30-35% Pt has AICD in place. Continue medical management. (8) CKD (chronic kidney disease) stage 3, GFR 30-59 ml/min Code(s): N18.3 - CHRONIC KIDNEY DISEASE, STAGE 3 (MODERATE) Status: Chronic Plan: Stable. (9) CAD (coronary artery disease) Code(s): I25.10 - ATHSCL HEART DISEASE OF [place] CORONARY ARTERY W/O ANG PCTRS Status: Chronic Plan: Continue current medical management. (10) Hyperlipidemia Code(s): E78.5 - HYPERLIPIDEMIA, UNSPECIFIED Status: Acute Plan: Continue current medication regimen. (11) Lymphoma in remission Code(s): C85.90 - NON-HODGKIN LYMPHOMA, UNSPECIFIED, UNSPECIFIED SITE Status: Acute (12) Congestive heart failure Code(s): I50.9 - HEART FAILURE, UNSPECIFIED Status: Acute Plan: Medical management (13) COPD (chronic obstructive pulmonary disease) Status: Chronic Plan: Duonebs Prn. <Ally Mar - Last Filed: 06/01/17 11:34> Attending Addendum - Attending Addendum I personally evaluated the patient and discussed the management with Dr. Mar on 06/01/17. I agree with the History, Examination, Assessment and Plan documented above with any addition or exceptions noted below. Pain better with NG Tube placement and regular administration of PRN analgesia. + Flatus. Vitals stable. Lungs clearer. Continue NG suction until cleared by Surgery. Consider TPN if to continue NPO for much longer as has been w/o Nutrition for 5+ days. <Nas Mcneil - Last Filed: 06/12/17 15:18>
[2017-06-01] MEDS ORDERED: ADMIXTURE FEE IVPB SCH (08:30)
[2017-06-01] MEDS ORDERED: SODIUM PHOSPHATE IVPB SCH (08:30)
[2017-06-01] MEDS ORDERED: SODIUM CHLORIDE IVPB SCH (08:30)
[2017-06-01] MEDS ORDERED: Insulin Detemir 100 UNITS/ML 5 UNITS in Pre-Filled Syringe 1 EACH SC SCH ×2 (09:00→21:00)
[2017-06-01] MEDS: Rosuvastatin 20 MG TAB PO SCH (09:58)
[2017-06-01] MEDS: Tamsulosin HCl 0.4 MG CAP PO SCH (09:58)
[2017-06-01] MEDS: Multivitamin W/ Minerals 1 TAB PO SCH (09:58)
[2017-06-01] MEDS: Losartan 25 MG TAB PO SCH (09:58)
[2017-06-01] MEDS: Ubidecarenone 50 MG CAP PO SCH (10:00)
[2017-06-01] MEDS: Furosemide 20 MG TAB PO SCH (10:52)
[2017-06-01] MEDS: Aspirin 81 mg Enteric Coated Tablet PO SCH (10:52)
[2017-06-01] MEDS ORDERED: Sodium Chloride 0.45% 1,000 ML IV SCH ×2 (11:45→15:15)
--- NOTE | 2017-06-01 13:31 | PRG ---
DATE OF SERVICE: 06/01/2017 SUBJECTIVE: Mr. Manuel Cassidy this morning is sedated. OBJECTIVE: VITAL SIGNS: Sats are 96%, respirations 16, temperature 97, blood pressure 132/66. He has got NG t ube in place. CHEST: Reveals decreased breath sounds without any wheezing. CARDIAC: Normal S1, S2. No gallops. ABDOMEN: Soft, no masses. LABORATORY DATA: White count 11,000, hemoglobin and hematocrit is 9 and 28, platelet count of 116, creatinine 1.34. IMPRESSION: 1. Ileus, status post a Lizbeth-Johnson tear. 2. Pneumonia. PLAN: He is on TPN, antibiotics, neb treatments, supportive care. We will follow.
[2017-06-01] MEDS: MULTIVITAMINS IV SCH ×4 (14:41)
[2017-06-01] MEDS: MULTITRACE IV SCH ×4 (14:41)
[2017-06-01] MEDS: MAGNESIUM SULFATE IV SCH ×4 (14:41)
[2017-06-01] MEDS: [UNRECOGNIZED DRUG - OTHER] IV SCH ×4 (14:41)
--- NOTE | 2017-06-01 17:15 | PRG ---
DATE OF SERVICE: 06/01/2017 SUBJECTIVE: The patient doing well. He is having no nausea and vomiting. He is having flatus. Hi s abdominal pain is somewhat better than yesterday. His NG is still in place and putting out some r eddish material. OBJECTIVE: VITAL SIGNS: Temperature 97.3, pulse 75, respiratory rate 16, blood pressure 129/65. CHEST: Clear. CARDIOVASCULAR: Regular rate and rhythm. ABDOMEN: Soft. Diffusely tender. RECTAL: Deferred. LABORATORY DATA: Shows hemoglobin of 9.3, hematocrit of 28.0. Chemistry is significant for sodium 146, BUN 41, creatinine 1.35, glucose 147, phosphorus 1.8. Liver biopsy showed a necrotic cyst. ASSESSMENT: Upper gastrointestinal bleeding secondary to possible Lizbeth-Johnson tear. RECOMMENDATIONS: 1. Continue NG suction for surgery. 2. Continue PPI drip. 3. Continue to monitor hemoglobin and hematocrit.
[2017-06-01] MEDS: Ondansetron HCl/PF 4 MG/2 ML Vial IVP PRN (17:27)
[2017-06-01 21:30] LABS: Troponin I 0.276 ng/mL (< 0.028)
[2017-06-01] MEDS: Pantoprazole 80 MG in Sodium Chloride 0.9% 100 ML IVP SCH (22:17)
[2017-06-01] MEDS ORDERED: traMADol HCl 50 MG TAB PO SCH (22:30)
[2017-06-01] MEDS: Metoprolol Tartrate 5 MG/5 ML VIAL IVP SCH (23:05)
[2017-06-02 00:56] LABS: Troponin I 0.279 ng/mL (< 0.028)
[2017-06-02] MEDS: Morphine 10 MG/ML VIAL SLOW IVP PRN ×4 (01:14→17:51)
[2017-06-02] MEDS: Piperacillin/Tazobactam 2.25 GM, Admixture Fee 1 EACH in Sodium Chloride 0.9% 100 ML IVPB SCH ×3 (02:10→20:00)
[2017-06-02] MEDS: Ondansetron HCl/PF 4 MG/2 ML Vial IVP PRN ×3 (03:45→21:56)
[2017-06-02 04:42] LABS: #Eosinphils 0.1 thou/uL (0.0-0.7); #Lymphocytes 1.3 thou/uL (1.20-3.40); #Monocytes 1.1 thou/uL (0.11-0.59); #Neutrophils 8.1 thou/uL (1.40-6.50); %Eosinophils 0.8 % (0.0-10.0); %Lymphocytes 12.5 % (21.0-51.0); %Monocytes 10.4 % (0.0-10.0); Hematocrit 28.4 % (42.0-52.0); Mean Platelet Volume 7.1 fL (7.4-10.4); Red Blood Cell (RBC) Count 2.78 mill/uL (4.70-6.10); White Blood Cell (WBC) Count 10.5 thou/uL (4.8-10.8)
[2017-06-02 04:53] LABS: Anion Gap 6 mmol/L (10-20); BUN (Urea Nitrogen) 32 mg/dL (8.4-25.7); Calc. Creatinine Clearance 49 mL/min (70-130); Calcium 8.1 mg/dL (7.8-10.44); Carbon Dioxide 32 mmol/L (23-31); Chloride 111 mmol/L (98-107); Estimated GFR-MDRD 67; Phosphorus 2.8 mg/dL (2.3-4.7)
[2017-06-02 04:56] LABS: Troponin I 0.266 ng/mL (< 0.028)
[2017-06-02] MEDS: Metoprolol Tartrate 5 MG/5 ML VIAL IVP SCH ×3 (05:23→21:59)
[2017-06-02] MEDS: Mometasone/Formoterol 120 PUFF INHALER INH SCH ×2 (07:03→18:49)
[2017-06-02] MEDS: Pantoprazole 80 MG in Sodium Chloride 0.9% 100 ML IVP SCH ×2 (07:50→17:53)
--- NOTE | 2017-06-02 08:42 | RAD ---
FRONTAL RADIOGRAPH CHEST: TWO VIEWS ABDOMEN: 06/02/2017 HISTORY: Ischemic bowel. Postoperative patient. COMPARISON: Chest radiograph from 05/31/2017. FINDINGS: The frontal radiograph of the chest demonstrates a new nasogastric tube, which extends into the left upper quadrant. There is a stable right-sided vascular catheter, the distal tip overlying the danica on of the SVC. No pneumothorax is seen. Since the prior chest radiograph, there has been interval development of interstitial opacity in the perihilar regions in both lung bases. In addition, there is increased density within the medial le ft lung base, stable. There is hazy density within the inferior half of the right hemithorax, which has worsened. There is free intraperitoneal air on frontal imaging, beneath the right hemidiaphragm, a stable find ing. There is a free intraperitoneal air pocket, noted on decubitus imaging, within the right upper quadrant. The focus of free intraperitoneal air, adjacent to the right lobe of the liver, on the d ecubitus view, measures 13.5 x 3.1 cm. The clinical significance of this free intraperitoneal air i s uncertain, given recent postoperative state. The bowel gas pattern appears nonobstructed. Vertic ally oriented cutaneous nikos overly the midline upper and mid abdomen. Layering left pleural eff usion noted on decubitus imaging. IMPRESSION: 1. Worsening aeration in both lung bases may represent developing pulmonary edema with associated p leural fluid, particularly on the right. Infectious pneumonitis or aspiration is a possibility as w ell. 2. Significant free intraperitoneal air, best seen on decubitus imaging, adjacent to the right lobe of the liver. The volume of free intraperitoneal air is significant. Clinical correlation is requ ired to assess the significance of this degree of free intraperitoneal air, depending on the timing of the patient's surgery. It is impossible to exclude interval bowel perforation since prior surger y accounting for this air. The concern for potential bowel perforation since prior surgery, given volume of free intraperitonea l air, was discussed with Dr. Fulton at approximately 8 a.m. on 06/02/2017. CODE CR POS: LISA
--- NOTE | 2017-06-02 09:34 | PDOC.FM ---
- Subjective Subjective: Pt had tachycardia up to 130s at rest yesterday. He was transferred to telemetry. He has no complaints this morning. - Objective MAR Reviewed: Yes Vital Signs & Weight: Vital Signs (12 hours) Temp Pulse Resp BP Pulse Ox 06/02/17 07:03 79 16 100 06/02/17 07:02 95 16 100 06/02/17 05:27 95 16 131/60 97 06/02/17 03:36 88 16 134/70 98 06/02/17 01:25 88 18 99 06/02/17 00:57 84 16 119/61 99 06/02/17 00:31 99 06/01/17 23:23 97.5 F L 06/01/17 23:16 80 20 113/57 L 99 06/01/17 23:01 99 20 128/60 100 06/01/17 22:54 92 18 99 06/01/17 21:45 97.5 F L 100 20 128/60 98 Weight Admit Weight 57.4 kg Weight 62.624 kg Most Recent Monitor Data Heart Rate from ECG 98 NIBP 118/58 NIBP BP-Mean 67 Respiration from ECG 26 SpO2 92 I&O: 06/01/17 06/02/17 06/03/17 06:59 06:59 06:59 Intake Total 2070 2732.0 Output Total 4575 2075 80 Balance -2505 657.0 -80 Result Diagrams: 06/02/17 03:09 06/02/17 03:09 <Ally Mar - Last Filed: 06/02/17 09:32> - Objective Vital Signs & Weight: Weight Admit Weight 57.4 kg Weight 62.624 kg Most Recent Monitor Data Heart Rate from ECG 98 NIBP 118/58 NIBP BP-Mean 67 Respiration from ECG 26 SpO2 92 Result Diagrams: 06/06/17 06:00 06/04/17 05:59 <Nas Mcneil - Last Filed: 06/12/17 15:45> Phys Exam - Physical Examination Constitutional: NAD Respiratory: clear to auscultation bilateral Cardiovascular: RRR Gastrointestinal: soft, non-tender, positive bowel sounds well-healing midline incision. <Ally Mar - Last Filed: 06/02/17 09:32> Dx/Plan (1) Sinus tachycardia Code(s): R00.0 - TACHYCARDIA, UNSPECIFIED Status: Acute Plan: likely secondary to pain vs. anemia. will add prn morphine for breakthrough pain. IV metoprolol added for b-blockade. Pacemaker will be interrogated to check for events. Will continue to monitor on telemetry (3) Postoperative ileus Code(s): K91.89 - OTH POSTPROCEDURAL COMPLICATIONS AND DISORDERS OF DGSTV SYS; K56.7 - ILEUS, UNSPECIFIED Status: Acute Plan: resolving. positive bowel sounds. NG output has slowed down. 100 cc overnight. Will await surgery recommendations. (4) Acute blood loss anemia Code(s): D62 - ACUTE POSTHEMORRHAGIC ANEMIA Status: Resolved Plan: Likely upper GI source related to Lizbeth-Johnson tear, no-longer bleeding per EGD H/H has remained stable. Will continue to monitor with AM CBCs (6) Renal cell carcinoma Code(s): C64.9 - MALIGNANT NEOPLASM OF UNSP KIDNEY, EXCEPT RENAL PELVIS Status : Acute Qualifiers: Laterality: left Qualified Code(s): C64.2 - Malignant neoplasm of left kidney, except renal pelvis Plan: Left renal mass suspicious for renal cell carcinoma. Pt will need outpatient urological evaluation for tissue confirmation. (7) Non-ischemic cardiomyopathy Code(s): I42.8 - OTHER CARDIOMYOPATHIES Status: Acute Plan: Echo shows EF 30-35% Pt has AICD in place. Continue medical management. (8) CKD (chronic kidney disease) stage 3, GFR 30-59 ml/min Code(s): N18.3 - CHRONIC KIDNEY DISEASE, STAGE 3 (MODERATE) Status: Chronic Plan: Stable. (9) CAD (coronary artery disease) Code(s): I25.10 - ATHSCL HEART DISEASE OF [place] CORONARY ARTERY W/O ANG PCTRS Status: Chronic Plan: Continue current medical management. (10) Hyperlipidemia Code(s): E78.5 - HYPERLIPIDEMIA, UNSPECIFIED Status: Acute Plan: Continue current medication regimen. (11) Lymphoma in remission Code(s): C85.90 - NON-HODGKIN LYMPHOMA, UNSPECIFIED, UNSPECIFIED SITE Status: Acute (12) Congestive heart failure Code(s): I50.9 - HEART FAILURE, UNSPECIFIED Status: Acute Plan: Medical management (13) COPD (chronic obstructive pulmonary disease) Status: Chronic Plan: Duonebs Prn. (14) Elevated troponin Code(s): R74.8 - ABNORMAL LEVELS OF OTHER SERUM ENZYMES Status: Acute Plan: likely related to demand ischemia from tachycardia last night. Down trending. continue to monitor. (15) Metabolic alkalosis Code(s): E87.3 - ALKALOSIS Status: Acute Plan: Likely secondary to GI losses and diuresis. Will replace with IV fluids. (16) Hypophosphatemia Code(s): E83.39 - OTHER DISORDERS OF PHOSPHORUS METABOLISM Status: Resolved Plan: resolved s/p replacement yesterday. Continue to monitor. (17) Acute kidney injury superimposed on chronic kidney disease Code(s): N17.9 - ACUTE KIDNEY FAILURE, UNSPECIFIED; N18.9 - CHRONIC KIDNEY DISEASE, UNSPECIFIED Status: Resolved Plan: Cr resolving back to baseline. BUN elevation improving. <Ally Mar - Last Filed: 06/02/17 09:32> Attending Addendum - Attending Addendum I personally evaluated the patient and discussed the management with Dr. Mar on 06/02/17. I agree with the History, Examination, Assessment and Plan documented above with any addition or exceptions noted below. Pain control improved. Briefly tachy earlier, resolved. O/W vitals acceptable. NG ouput decreased. +Flatus. Abd soft, post op. Postop Abd exploration for Ischemic bowel, improved w/o resection. Gradual improvement. BP, HR control. Lines and tubes out per GS. TPN until p.o. tolerance demonstrated. <Nas Mcneil - Last Filed: 06/12/17 15:45>
[2017-06-02] MEDS: Multivitamin W/ Minerals 1 TAB PO SCH (09:40)
[2017-06-02] MEDS: Furosemide 20 MG TAB PO SCH (09:40)
[2017-06-02] MEDS: Losartan 25 MG TAB PO SCH (09:40)
[2017-06-02] MEDS: Ubidecarenone 50 MG CAP PO SCH (09:40)
[2017-06-02] MEDS: Tamsulosin HCl 0.4 MG CAP PO SCH (09:40)
[2017-06-02] MEDS: Aspirin 81 mg Enteric Coated Tablet PO SCH (09:40)
[2017-06-02] MEDS: Rosuvastatin 20 MG TAB PO SCH (09:40)
--- NOTE | 2017-06-02 10:03 | PRG ---
DATE OF SERVICE: 06/02/2017 Manuel Cassidy is barely arousable. He is on pain medicines. PHYSICAL EXAMINATION: VITAL SIGNS: Sats 100% on 2 liters, respirations 15, temperature 97. Blood pressure 130/60. CHEST: Chest revealed decreased breath sounds without any wheezing. CARDIAC: Normal S1-S2. ABDOMEN: Soft, no masses. LABORATORY: White count 10, H\T\H 9 and 28, platelet count 108. Electrolytes are normal. His abdominal series shows ongoing free intraperitoneal air with evidence of significant ileus. IMPRESSION: 1. Status post lap. 2. Respiratory failure. 3. Severe deconditioning. PLAN: The patient's prognosis remains guarded. TPN and supportive care and comfort care. I will follow.
[2017-06-02 12:18] VITALS: BMI 20.3
[2017-06-02] MEDS ORDERED: Metoclopramide HCl 10 MG/2 ML VIAL IVP SCH (12:45)
[2017-06-02] MEDS: MULTITRACE IV SCH ×4 (14:31)
[2017-06-02] MEDS: MULTIVITAMINS IV SCH ×4 (14:31)
[2017-06-02] MEDS: [UNRECOGNIZED DRUG - OTHER] IV SCH ×4 (14:31)
[2017-06-02] MEDS: MAGNESIUM SULFATE IV SCH ×4 (14:31)
[2017-06-02 18:25] LABS: Troponin I 0.222 ng/mL (< 0.028)
--- NOTE | 2017-06-02 20:00 | PRG ---
DATE OF SERVICE: 06/02/2017 SUBJECTIVE: Manuel Cassidy is doing well today. He was transferred to telemetry last p.m. I was not notified. I was concerned about his abdominal tenderness. He had a tachycardia. This morning, abd ominal x-rays reveal intra-abdominal air, but this is not unusual for 4 days postoperatively. His t achycardia has resolved. Because of abdominal tenderness, CT scan of abdomen and pelvis was obtaine d today and was essentially unremarkable except for his renal cell carcinoma is evident on the past CAT scan. OBJECTIVE: VITAL SIGNS: Currently, temperature 98 degrees, heart rate 96, respiratory rate 16, blood pressure 132/60. LUNGS: Clear to auscultation with rhonchi at the base. CARDIAC: Regular rate and rhythm. ABDOMEN: Soft, good bowel sounds. NG tube output last 24 hours is 150 mL. He has passed flatus. Output Shah is 1925 last 24 hours. He is on TPN. His other IV fluids have been discontinued. LABORATORY DATA: This morning, his white count is 10.5, hemoglobin 9.2, BUN 32, creatinine 1.08. S odium 145, potassium 3.9. ASSESSMENT AND PLAN: 1. At this point, the patient seems to be doing better. He was up in a chair for a period of time. He does have a diminished cardiac ejection fraction and has been seen by Dr. Saha preoperatively . Echocardiogram in their office just before the operation was 35% to 40% ejection fraction requiri ng repeat echocardiogram ordered by Family Practice. He has a nonischemic cardiomyopathy. This is stable. 2. Malnutrition, on TPN. 3. Resuming bowel function. CAT scan is negative, we will remove his NG tube initiate liquids. We will probably remove his Shah catheter tomorrow. We will increase his activity. 4. Renal cell carcinoma. Arrange Urology consultation as an outpatient at a later date. He needs to recover from this episode.
[2017-06-02] MEDS ORDERED: traMADol HCl 50 MG TAB PO PRN ×2 (20:18)
--- NOTE | 2017-06-02 20:34 | CT ---
CT ABDOMEN AND PELVIS WITH IV AND ORAL CONTRAST 06/02/17 HISTORY: Abdominal pain. Recent surgery. COMPARISON: 05/27/17. FINDINGS: Small to moderate amount of bilateral pleural fluid and bibasilar atelectasis are again demonstrated . The liver has a nodular contour. Small hepatic cysts are stable. The large heterogeneously enhanci ng mass arising from the lateral cortex of the left kidney is again demonstrated. Postoperative alex ges of the abdomen are now present. The calcified lesion previously shown to involve the posterior w all of the stomach is no longer visible and assumed to have been surgically resected. There is no ev idence of bowel obstruction. Lobular omental thickening within the anterior mid abdomen is similar i n appearance to the prior study. Small amount of free fluid remains. IMPRESSION: 1. Interval operative change of the abdomen with suspected resection of the partially calcified left upper abdomen mass. 2. Large left renal cell carcinoma, omental thickening, and other abdominal findings are otherw ise stable. 3. Interval development of bilateral pleural fluid with mild bibasilar atelectasis. POS: MOOK
[2017-06-02] MEDS: Acetaminophen 500 MG TAB PO SCH (22:23)
[2017-06-03] MEDS: Pantoprazole 80 MG in Sodium Chloride 0.9% 100 ML IVP SCH ×2 (04:37→15:37)
[2017-06-03] MEDS: Acetaminophen 500 MG TAB PO SCH ×4 (05:00→21:07)
[2017-06-03 05:21] LABS: #Eosinphils 0.4 thou/uL (0.0-0.7); #Lymphocytes 1.2 thou/uL (1.20-3.40); #Monocytes 1.1 thou/uL (0.11-0.59); #Neutrophils 7.2 thou/uL (1.40-6.50); %Basophils 0.1 % (0.0-1.0); %Eosinophils 4.1 % (0.0-10.0); %Lymphocytes 12.5 % (21.0-51.0); %Monocytes 10.7 % (0.0-10.0); Hematocrit 24.9 % (42.0-52.0); Mean Platelet Volume 6.9 fL (7.4-10.4); Red Blood Cell (RBC) Count 2.42 mill/uL (4.70-6.10); White Blood Cell (WBC) Count 9.9 thou/uL (4.8-10.8)
[2017-06-03] MEDS: Metoprolol Tartrate 5 MG/5 ML VIAL IVP SCH (05:22)
[2017-06-03 05:27] LABS: Anion Gap 10 mmol/L (10-20); BUN (Urea Nitrogen) 30 mg/dL (8.4-25.7); Calc. Creatinine Clearance 58 mL/min (70-130); Calcium 7.8 mg/dL (7.8-10.44); Carbon Dioxide 27 mmol/L (23-31); Chloride 107 mmol/L (98-107); Estimated GFR-MDRD 72
[2017-06-03] MEDS: Mometasone/Formoterol 120 PUFF INHALER INH SCH ×2 (06:55→19:32)
--- NOTE | 2017-06-03 09:27 | PRG ---
DATE OF SERVICE: 06/03/2017 SUBJECTIVE: Manuel Cassidy is doing well today. He is tolerating his NG tube out. He is tolerating h is diet. He has not had any nausea or vomiting. He is passing gas and having bowel movements. He states he usually does not eat much as a baseline and has not eaten much, but he is tolerating what he takes in. Despite orders for him to be out of bed into a chair, he has not been up since being o n telemetry. I personally at the bedside this morning at 0854 removed his Shah catheter, got him u p into a chair. He is on TPN. PHYSICAL EXAMINATION: LUNGS: Clear to auscultation. CARDIAC: Regular rate and rhythm without murmur or gallop. ABDOMEN: Soft, flat, nondistended. Excellent bowel sounds. LABORATORY DATA: White count 9, hemoglobin 8, Sodium 140, potassium 3.8, BUN 30, creatinine 1.01, G FR 72. ASSESSMENT AND PLAN: 1. The patient is doing well. From a GI standpoint, he is doing well. I believe the maroon stools he had is due to the ischemic bowel recovery process. The patient currently will be advanced to a regular diet. TPN discontinued. I personally removed his Shah catheter this morning. We will dis continue that. From surgical standpoint, he could be discharged home tomorrow or over the weekend p ending his physical status and cardiac status. 2. Atrial flutter episodes with nonischemic cardiomyopathy with defibrillator under the care of Dr. Richardson. Continue telemetry monitoring. 3. Mobility. The patient needs to be up in a chair 4-5 times a day. He needs to be up in a chair for all meals. He should not be eating meals in bed. He should be ambulating in the hallways 4-5 t imes a day.
--- NOTE | 2017-06-03 09:30 | PRG ---
DATE OF SERVICE: 06/03/2017 This morning he is awake, alert, responsive, appears to be much improved. Apparently he had a large bowel movement. PHYSICAL EXAMINATION: VITAL SIGNS: His blood pressure is 107/58, O2 sat 100% on 2 liters, temperature is 97. CHEST: Chest reveals decreased breath sounds without any wheezing. CARDIAC: Normal S1, S2. ABDOMEN: Soft, no masses. LABORATORY DATA: White count 9000, H\T\H 8 and 24, platelet count low at 114. Electrolytes are nor mal. Abdominal CT was done yesterday which showed a large left renal cell carcinoma, multiple thickening, bilateral pleural effusion, atelectasis. PLAN: Pulmonary coffey nothing additional to offer. Since he is eating TPN will be discontinued, PT and supportive care. Please call as needed.
[2017-06-03] MEDS: Aspirin 81 mg Enteric Coated Tablet PO SCH (09:37)
[2017-06-03] MEDS: Ubidecarenone 50 MG CAP PO SCH (09:37)
[2017-06-03] MEDS: Rosuvastatin 20 MG TAB PO SCH (09:38)
[2017-06-03] MEDS: Furosemide 20 MG TAB PO SCH (09:38)
[2017-06-03] MEDS: Losartan 25 MG TAB PO SCH (09:38)
[2017-06-03] MEDS: Tamsulosin HCl 0.4 MG CAP PO SCH (09:38)
[2017-06-03] MEDS: Polyethylene Glycol 3350 17 GM Packet PO SCH (09:39)
[2017-06-03] MEDS: Multivitamin W/ Minerals 1 TAB PO SCH (09:39)
--- NOTE | 2017-06-03 12:46 | PDOC.FM ---
- Subjective Subjective: Pt doing well. He is tolerating a full liquid diet without complaints of nausea. His pain is well controlled. - Objective MAR Reviewed: Yes Vital Signs & Weight: Vital Signs (12 hours) Temp Pulse Resp BP Pulse Ox 06/03/17 07:30 97.9 F 92 20 100 06/03/17 07:28 97.9 F 92 20 107/58 L 100 06/03/17 06:55 89 18 100 06/03/17 06:45 89 18 100 06/03/17 03:39 98.7 F 101 H 16 111/56 L 100 06/03/17 02:16 95 18 100 Weight Admit Weight 57.4 kg Weight 62.624 kg Most Recent Monitor Data Heart Rate from ECG 98 NIBP 118/58 NIBP BP-Mean 67 Respiration from ECG 26 SpO2 92 I&O: 06/02/17 06/03/17 06/04/17 06:59 06:59 06:59 Intake Total 2732.0 279 1260 Output Total 2075 1300 Balance 657.0 -1021 1260 Result Diagrams: 06/03/17 04:43 06/03/17 04:43 <Ally Mar - Last Filed: 06/03/17 12:44> - Objective Vital Signs & Weight: Weight Admit Weight 57.4 kg Weight 62.624 kg Most Recent Monitor Data Heart Rate from ECG 98 NIBP 118/58 NIBP BP-Mean 67 Respiration from ECG 26 SpO2 92 Result Diagrams: 06/06/17 06:00 06/04/17 05:59 <Nas Mcneil - Last Filed: 06/12/17 15:47> Phys Exam - Physical Examination Constitutional: NAD Respiratory: clear to auscultation bilateral Cardiovascular: RRR Gastrointestinal: soft, non-tender well-healed midline incision. Musculoskeletal: no edema Neurological: moves all 4 limbs Psychiatric: A&O x 3 <Ally Mar - Last Filed: 06/03/17 12:44> Dx/Plan (1) Sinus tachycardia Code(s): R00.0 - TACHYCARDIA, UNSPECIFIED Status: Resolved Plan: Rate currently controlled. Will continue to monitor. (3) Postoperative ileus Code(s): K91.89 - OTH POSTPROCEDURAL COMPLICATIONS AND DISORDERS OF DGSTV SYS; K56.7 - ILEUS, UNSPECIFIED Status: Resolved Plan: NG removed. Pt tolerating full liquid diet. Will advance as tolerated. (4) Acute blood loss anemia Code(s): D62 - ACUTE POSTHEMORRHAGIC ANEMIA Status: Resolved Plan: H/H has remained stable. Will continue to monitor with AM CBCs and for signs of bleeding. (5) BPH (benign prostatic hyperplasia) Code(s): N40.0 - BENIGN PROSTATIC HYPERPLASIA WITHOUT LOWER URINRY TRACT SYMP Status: Acute Plan: D/C conrad today. Continue flomax. (6) Renal cell carcinoma Code(s): C64.9 - MALIGNANT NEOPLASM OF UNSP KIDNEY, EXCEPT RENAL PELVIS Status : Suspected Qualifiers: Laterality: left Qualified Code(s): C64.2 - Malignant neoplasm of left kidney, except renal pelvis Plan: Left renal mass suspicious for renal cell carcinoma. Pt will need outpatient urological evaluation for tissue confirmation. (7) Non-ischemic cardiomyopathy Code(s): I42.8 - OTHER CARDIOMYOPATHIES Status: Acute Plan: Echo shows EF 30-35% Pt has AICD in place. Continue medical management. (8) CKD (chronic kidney disease) stage 3, GFR 30-59 ml/min Code(s): N18.3 - CHRONIC KIDNEY DISEASE, STAGE 3 (MODERATE) Status: Chronic Plan: Stable. (9) CAD (coronary artery disease) Code(s): I25.10 - ATHSCL HEART DISEASE OF [place] CORONARY ARTERY W/O ANG PCTRS Status: Chronic Plan: Continue current medical management. (10) Hyperlipidemia Code(s): E78.5 - HYPERLIPIDEMIA, UNSPECIFIED Status: Acute Plan: Continue current medication regimen. (11) Lymphoma in remission Code(s): C85.90 - NON-HODGKIN LYMPHOMA, UNSPECIFIED, UNSPECIFIED SITE Status: Acute (12) Congestive heart failure Code(s): I50.9 - HEART FAILURE, UNSPECIFIED Status: Acute Plan: Medical management (13) COPD (chronic obstructive pulmonary disease) Status: Chronic Plan: Duonebs Prn. (14) Metabolic alkalosis Code(s): E87.3 - ALKALOSIS Status: Acute Plan: Likely secondary to GI losses and diuresis. Will replace with IV fluids. (15) Acute kidney injury superimposed on chronic kidney disease Code(s): N17.9 - ACUTE KIDNEY FAILURE, UNSPECIFIED; N18.9 - CHRONIC KIDNEY DISEASE, UNSPECIFIED Status: Resolved Plan: Cr resolving back to baseline. BUN elevation improving. <Ally Mar - Last Filed: 06/03/17 12:44> Attending Addendum - Attending Addendum I personally evaluated the patient and discussed the management with Dr. Mar on 06/03/17. I agree with the History, Examination, Assessment and Plan documented above with any addition or exceptions noted below. NG out. Chu's p.o. Vitals stable. Lungs CTA. OOB and ambulates with assist though still weak. May need rehab vs. OP PT at discharge. <Nas Mcneil - Last Filed: 06/12/17 15:47>
[2017-06-03 15:22] LABS: Hemoglobin A1c 5.6 % (4.0-6.0)
[2017-06-03] MEDS: Carvedilol 3.125 MG TAB PO SCH ×2 (16:03→21:07)
[2017-06-03] MEDS: Ondansetron HCl/PF 4 MG/2 ML Vial IVP PRN (21:12)
[2017-06-03] MEDS: diphenhydrAMINE 25 MG CAP PO PRN (23:32)
[2017-06-04] MEDS: Pantoprazole 80 MG in Sodium Chloride 0.9% 100 ML IVP SCH (01:26)
[2017-06-04] MEDS: Acetaminophen 500 MG TAB PO SCH ×4 (03:19→20:39)
[2017-06-04 06:04] LABS: #Basophils 0.1 thou/uL (0.0-0.2); #Eosinphils 0.3 thou/uL (0.0-0.7); #Lymphocytes 0.4 thou/uL (1.20-3.40); #Monocytes 0.4 thou/uL (0.11-0.59); #Neutrophils 8.1 thou/uL (1.40-6.50); %Basophils 0.8 % (0.0-1.0); %Eosinophils 3.5 % (0.0-10.0); %Lymphocytes 4.7 % (21.0-51.0); %Monocytes 4.6 % (0.0-10.0); Hematocrit 25.3 % (42.0-52.0); Mean Platelet Volume 6.4 fL (7.4-10.4); Red Blood Cell (RBC) Count 2.49 mill/uL (4.70-6.10); White Blood Cell (WBC) Count 9.3 thou/uL (4.8-10.8)
[2017-06-04 06:24] LABS: Bilirubin Negative (Negative); Blood, Urine Moderate (Negative); Glucose, Urine (Dipstick) Negative (Negative); Ketone, Urine Negative (Negative); Nitrite Negative (Negative); Protein, Urine (Dipstick) 30 mg/dL (Neg-Trace)
[2017-06-04 06:25] LABS: Anion Gap 11 mmol/L (10-20); BUN (Urea Nitrogen) 29 mg/dL (8.4-25.7); Calc. Creatinine Clearance 56 mL/min (70-130); Carbon Dioxide 27 mmol/L (23-31); Chloride 104 mmol/L (98-107); Estimated GFR-MDRD 69
[2017-06-04 06:27] LABS: Bacteria/HPF 1+ HPF (None Seen); Hyaline Casts/LPF 0-3 HYALINE CAST LPF (0-3 Hyaline); RBC/HPF 21-50 HPF (0-3); Squamous Epithelial 0-3 HPF (0-3); WBC/HPF 0-3 HPF (0-3)
[2017-06-04] MEDS ORDERED: Metoprolol Tartrate 5 MG/5 ML VIAL IVP SCH (08:30)
--- NOTE | 2017-06-04 08:56 | PDOC.FM ---
- Subjective Subjective: Pt had >1L urinary retention yesterday after conrad catheter was discontinued. His heart rate has also been in 140s-150s today. He has no complaints. He denies chest pain, dyspnea, and abdominal pain. - Objective MAR Reviewed: Yes Vital Signs & Weight: Vital Signs (12 hours) Temp Pulse Resp BP Pulse Ox 06/04/17 07:44 98.6 F 128 H 18 86/47 L 94 L 06/04/17 04:00 98.9 F 129 H 18 128/74 92 L 06/03/17 23:56 92 L Weight Admit Weight 57.4 kg Weight 62.624 kg Most Recent Monitor Data Heart Rate from ECG 98 NIBP 118/58 NIBP BP-Mean 67 Respiration from ECG 26 SpO2 92 I&O: 06/03/17 06/04/17 06/05/17 06:59 06:59 06:59 Intake Total 279 3659 Output Total 1300 2205 Balance -1021 1454 Result Diagrams: 06/04/17 05:59 06/04/17 05:59 <Ally Mar - Last Filed: 06/04/17 09:00> - Objective Vital Signs & Weight: Weight Admit Weight 57.4 kg Weight 62.624 kg Most Recent Monitor Data Heart Rate from ECG 98 NIBP 118/58 NIBP BP-Mean 67 Respiration from ECG 26 SpO2 92 Result Diagrams: 06/06/17 06:00 06/04/17 05:59 <Nas Mcneil - Last Filed: 06/12/17 15:52> Phys Exam - Physical Examination Constitutional: NAD Respiratory: clear to auscultation bilateral tachycardic Gastrointestinal: soft, non-tender, no distention Musculoskeletal: no edema Psychiatric: A&O x 3 <Ally Mar - Last Filed: 06/04/17 09:00> Dx/Plan (1) Sinus tachycardia Code(s): R00.0 - TACHYCARDIA, UNSPECIFIED Status: Resolved Plan: Will give Metoprolol 5 mg IV now. EKG ordered as well. (2) Urinary retention due to benign prostatic hyperplasia Code(s): N40.1 - BENIGN PROSTATIC HYPERPLASIA WITH LOWER URINARY TRACT SYMP; R33.8 - OTHER RETENTION OF URINE Status: Acute Plan: Indwelling conrad catheter replaced. Outpatient urological evaluation warranted. Will likely discharge pt with conrad in. (3) Postoperative ileus Code(s): K91.89 - OTH POSTPROCEDURAL COMPLICATIONS AND DISORDERS OF DGSTV SYS; K56.7 - ILEUS, UNSPECIFIED Status: Resolved Plan: NG removed. Pt tolerating full liquid diet. Will advance as tolerated. (4) Acute blood loss anemia Code(s): D62 - ACUTE POSTHEMORRHAGIC ANEMIA Status: Resolved Plan: H/H has remained stable. Will continue to monitor with AM CBCs and for signs of bleeding. (5) BPH (benign prostatic hyperplasia) Code(s): N40.0 - BENIGN PROSTATIC HYPERPLASIA WITHOUT LOWER URINRY TRACT SYMP Status: Acute Plan: Continue flomax. (6) Renal cell carcinoma Code(s): C64.9 - MALIGNANT NEOPLASM OF UNSP KIDNEY, EXCEPT RENAL PELVIS Status : Suspected Qualifiers: Laterality: left Qualified Code(s): C64.2 - Malignant neoplasm of left kidney, except renal pelvis Plan: Left renal mass suspicious for renal cell carcinoma. Pt will need outpatient urological evaluation for tissue confirmation. (7) Non-ischemic cardiomyopathy Code(s): I42.8 - OTHER CARDIOMYOPATHIES Status: Acute Plan: Echo shows EF 30-35% Pt has AICD in place. Continue medical management. (8) CKD (chronic kidney disease) stage 3, GFR 30-59 ml/min Code(s): N18.3 - CHRONIC KIDNEY DISEASE, STAGE 3 (MODERATE) Status: Chronic Plan: Stable. (9) CAD (coronary artery disease) Code(s): I25.10 - ATHSCL HEART DISEASE OF [place] CORONARY ARTERY W/O ANG PCTRS Status: Chronic Plan: Continue current medical management. (10) Hyperlipidemia Code(s): E78.5 - HYPERLIPIDEMIA, UNSPECIFIED Status: Acute Plan: Continue current medication regimen. (11) Lymphoma in remission Code(s): C85.90 - NON-[place] LYMPHOMA, UNSPECIFIED, UNSPECIFIED SITE Status: Acute (12) Congestive heart failure Code(s): I50.9 - HEART FAILURE, UNSPECIFIED Status: Acute Plan: Medical management (13) COPD (chronic obstructive pulmonary disease) Status: Chronic Plan: Duonebatsheva Prn. <Ally Mar - Last Filed: 06/04/17 09:00> Attending Addendum - Attending Addendum I personally evaluated the patient and discussed the management with Dr. Mar on 06/04/17 I agree with the History, Examination, Assessment and Plan documented above with any addition or exceptions noted below. Pain controlled. Chu's p.o. Vitals stable except runs of tachy noted. EP to see. Urinary retention noted overnight. Coudee placement with >1L UOP immediately. Likely will need to be discharged with catheter to be removed by Urology later. <Nas Mcneil - Last Filed: 06/12/17 15:52>
[2017-06-04] MEDS: Aspirin 81 mg Enteric Coated Tablet PO SCH (09:21)
[2017-06-04] MEDS: Multivitamin W/ Minerals 1 TAB PO SCH (09:21)
[2017-06-04] MEDS: Rosuvastatin 20 MG TAB PO SCH (09:32)
--- NOTE | 2017-06-04 09:40 | PRG ---
DATE OF SERVICE: 06/04/2017 PHYSICAL EXAMINATION: VITAL SIGNS: This morning his blood pressure is low at 86/49, sats 98%, respirations 18, temperatur e 98, pulse 128. LUNGS: Difficulty breathing. Chest reveals decreased breath sounds. CARDIAC: Normal S1-S2. ABDOMEN: Soft. No masses. LABORATORY: White count 9000, H\T\H 8 and 25, platelet count 143. His electrolytes are normal. IMPRESSION: Hypotension. He is on multiple cardiac medication status post lap, resection, ileus. PLAN: I will cut back on his cardiac medication. He is off all antibiotics. He is off of the TPN. Continue observation. He may need some volume resuscitation if his blood pressure does not improv e.
[2017-06-04] MEDS: Mometasone/Formoterol 120 PUFF INHALER INH SCH ×2 (11:41→19:26)
[2017-06-04] MEDS: Furosemide 20 MG TAB PO SCH (15:33)
[2017-06-04] MEDS: Tamsulosin HCl 0.4 MG CAP PO SCH (15:33)
[2017-06-04] MEDS: Carvedilol 3.125 MG TAB PO SCH ×3 (15:33→21:25)
[2017-06-04] MEDS: Losartan 25 MG TAB PO SCH (15:33)
[2017-06-04] MEDS: Ubidecarenone 50 MG CAP PO SCH (15:34)
[2017-06-04] MEDS ORDERED: Sodium Chloride 0.9% 500 ML IV SCH (15:45)
--- NOTE | 2017-06-04 15:55 | EKG ---
Test Reason : STAT Blood Pressure : / mmHG Vent. Rate : 101 BPM Atrial Rate : 101 BPM P-R Int : 162 ms QRS Dur : 126 ms QT Int : 362 ms P-R-T Axes : 063 -37 101 degrees QTc Int : 469 ms Atrial-sensed ventricular-paced rhythm Biventricular pacemaker detected Abnormal ECG When compared with ECG of 27-MAY-2017 13:32, (Unconfirmed) Vent. rate has increased BY [address] Ramsey IGLESIAS ([id number]) on 06/04/2017 3:55:15 PM Referred By: AMISH Confirmed By:DR. Ramsey IGLESIAS
--- NOTE | 2017-06-04 16:03 | EKG ---
Test Reason : Blood Pressure : / mmHG Vent. Rate : 144 BPM Atrial Rate : 034 BPM P-R Int : 000 ms QRS Dur : 138 ms QT Int : 342 ms P-R-T Axes : 000 022 129 degrees QTc Int : 529 ms Wide QRS tachycardia with occasional Premature ventricular complexes Possible Ventricular Tachycardia Confirmed by DR. Ramsey IGLESIAS ([id number]) on 06/04/2017 4:03:17 PM Referred By: GUILHERME Confirmed By:DR. Ramsey IGLESIAS
--- NOTE | 2017-06-04 16:08 | PRG ---
DATE OF SERVICE: 06/04/2017 SUBJECTIVE: Manuel Cassidy is actually doing well. He is tolerating his diet. He is having bowel mov ements. I removed his catheter yesterday. He unfortunately is unable to urinate and passing only s mall amounts of urine probably overflow incontinence. Unfortunately; however, this was not attended to and he had 1100 mL urinary retention. Shah was replaced. The Shah catheter placement was dif ficult. I was not called about this problem. In the operating room, a Coude catheter required. Falcon d I been called, we would communicate to the nurses. OBJECTIVE: LUNGS: Clear to auscultation. CARDIAC: Regular rate and rhythm. ABDOMEN: Soft, nontender. Surgical wound looks good. VITAL SIGNS: Temperature 98.1 degrees, heart rate 100, and blood pressure 197/50. ASSESSMENT AND PLAN: 1. Postoperative day #8, laparotomy for bowel obstruction, ischemic bowel found. Resection not req uired. He passed maroon stool postoperatively, probably reflexion of his ischemic bowel recovery. Currently, he is doing well, recovered and is tolerating his diet. Would recommend removing the sta ples today, placed Mastisol and Steri-Strips. He should follow up in my office in 2-3 weeks. 2. The patient is having problems of atrial fibrillation/atrial flutter, seen by Dr. Richardson. 3. Urinary retention of 1100 mL. I would leave Shah in place at this time. Patient has an appoin tment to see Dr. Sheth as an outpatient. It is very likely he will need to be discharged home with his Shah and follow up with Dr. Sheth. I would not remove his catheter this hospitalization. 4. Renal mass, left kidney, suspicious for malignancy, probably renal cell carcinoma. We will arra nge outpatient appointment at Urology office as an outpatient. Dr. Sprague or Manisha. We will arrange that when he visit my office postoperatively. 5. Atrial fibrillation. The patient is ready to discharge home when he is stable from a cardiac st [facility]. Dr. Siddiqui will be covering the weekend and see him.
[2017-06-04] MEDS: Ferrous Sulfate 325 MG TAB PO SCH (17:55)
[2017-06-04] MEDS: diphenhydrAMINE 25 MG CAP PO PRN (20:33)
[2017-06-04] MEDS: Ondansetron HCl/PF 4 MG/2 ML Vial IVP PRN (20:39)
[2017-06-04] MEDS: Polyethylene Glycol 3350 17 GM Packet PO SCH (21:25)
[2017-06-05] MEDS: Acetaminophen 500 MG TAB PO SCH ×4 (04:43→22:31)
[2017-06-05 05:08] LABS: #Eosinphils 0.2 thou/uL (0.0-0.7); #Lymphocytes 0.9 thou/uL (1.20-3.40); #Monocytes 0.7 thou/uL (0.11-0.59); #Neutrophils 6.4 thou/uL (1.40-6.50); %Basophils 0.1 % (0.0-1.0); %Eosinophils 2.8 % (0.0-10.0); %Lymphocytes 10.5 % (21.0-51.0); %Monocytes 8.7 % (0.0-10.0); Hematocrit 23.7 % (42.0-52.0); Mean Platelet Volume 6.5 fL (7.4-10.4); Red Blood Cell (RBC) Count 2.31 mill/uL (4.70-6.10); White Blood Cell (WBC) Count 8.2 thou/uL (4.8-10.8)
--- NOTE | 2017-06-05 05:14 | PDOC.FM ---
- Subjective Subjective: Patient doing well this AM. No significant overnight events reported by patient. Patient denies chest pain, shortness of breath, severe abdominal pain, or palpitations. Patient spiked a fever to 100.5 last night. Patient still remains mildly tachycardic in the the low 100's over the course of 24 hours. No A-fib or A-flutter overnight. - Objective MAR Reviewed: Yes Vital Signs & Weight: Vital Signs (12 hours) Temp Pulse Resp BP Pulse Ox 06/05/17 04:00 100.2 F H 99 17 133/61 95 06/05/17 00:00 97.8 F 98 18 120/57 L 96 06/04/17 23:44 94 L 06/04/17 20:20 100.5 F H 103 H 16 108/54 L 95 06/04/17 19:29 95 06/04/17 19:28 99 20 95 06/04/17 19:26 99 18 95 Weight Admit Weight 57.4 kg Weight 62.624 kg Most Recent Monitor Data Heart Rate from ECG 98 NIBP 118/58 NIBP BP-Mean 67 Respiration from ECG 26 SpO2 92 I&O: 06/03/17 06/04/17 06/05/17 06:59 06:59 06:59 Intake Total 279 3659 945 Output Total 1300 2205 625 Balance -1021 1454 320 Result Diagrams: 06/05/17 05:00 06/04/17 05:59 Radiology Reviewed by me: Yes <Lola Barry - Last Filed: 06/05/17 07:30> - Objective Vital Signs & Weight: Vital Signs (12 hours) Temp Pulse Resp BP Pulse Ox 06/05/17 07:25 108 H 18 125/63 95 06/05/17 04:00 100.2 F H 99 17 133/61 95 06/05/17 00:00 97.8 F 98 18 120/57 L 96 06/04/17 23:44 94 L Weight Admit Weight 126 lb 8.72 oz Weight 138 lb 1 oz Most Recent Monitor Data Heart Rate from ECG 98 NIBP 118/58 NIBP BP-Mean 67 Respiration from ECG 26 SpO2 92 I&O: 06/04/17 06/05/17 06/06/17 06:59 06:59 05:59 Intake Total 3659 945 Output Total 2205 625 Balance 1454 320 Result Diagrams: 06/05/17 05:00 06/04/17 05:59 <Anup Serrano - Last Filed: 06/05/17 10:25> Phys Exam - Physical Examination Constitutional: NAD HEENT: PERRLA, moist MMs Neck: no JVD, supple Respiratory: no wheezing, no rales, no rhonchi, clear to auscultation bilateral Cardiovascular: RRR, no significant murmur Gastrointestinal: soft, no distention, positive bowel sounds Musculoskeletal: pulses present Neurological: moves all 4 limbs Psychiatric: A&O x 3 Skin: no rash, cap refill <2 seconds <Lola Barry - Last Filed: 06/05/17 07:30> Dx/Plan (1) Sinus tachycardia Code(s): R00.0 - TACHYCARDIA, UNSPECIFIED Status: Resolved Plan: -Patient going into A-fib and A-flutter with RVR intermittently -AICD which has been interrogated on two separate occasions recently -Patient given 500 cc bolus yesterday which brought HR back to normal range; may be dehydrated -Patient on carvedilol -Consider adding diltiazem if BP will allow; consult cards for recs -Dr. Young to evaluate patient (2) Urinary retention due to benign prostatic hyperplasia Code(s): N40.1 - BENIGN PROSTATIC HYPERPLASIA WITH LOWER URINARY TRACT SYMP; R33.8 - OTHER RETENTION OF URINE Status: Acute Plan: -Patient with indwelling conrad catheter -Hx of BPH s/p TURP -Conrad dc'd, but patient had significant urinary retention requiring recatheterization -Outpatient urological evaluation warranted -Likely discharge with conrad in place -Continue flomax -May need leg bag upon discharge (3) Hyperlipidemia Code(s): E78.5 - HYPERLIPIDEMIA, UNSPECIFIED Status: Chronic Plan: -Continue home meds (4) Lymphoma in remission Code(s): C85.90 - NON-[place] LYMPHOMA, UNSPECIFIED, UNSPECIFIED SITE Status: Chronic (5) Non-ischemic cardiomyopathy Code(s): I42.8 - OTHER CARDIOMYOPATHIES Status: Chronic Plan: -Echo with EF 30-35% -AICD in place -Continue medical management (6) CAD (coronary artery disease) Code(s): I25.10 - ATHSCL HEART DISEASE OF [place] CORONARY ARTERY W/O ANG PCTRS Status: Chronic Plan: -Continue current medical management (7) CKD (chronic kidney disease) stage 3, GFR 30-59 ml/min Code(s): N18.3 - CHRONIC KIDNEY DISEASE, STAGE 3 (MODERATE) Status: Chronic Plan: -Stable -Monitoring with BMP (8) Renal cell carcinoma Code(s): C64.9 - MALIGNANT NEOPLASM OF UNSP KIDNEY, EXCEPT RENAL PELVIS Status : Suspected Qualifiers: Laterality: left Qualified Code(s): C64.2 - Malignant neoplasm of left kidney, except renal pelvis Plan: -Left renal mass suspicious for renal cell carcinoma -Patient aware of findings and will need outpatient urological evaluation for tissue confirmation (9) Acute blood loss anemia Code(s): D62 - ACUTE POSTHEMORRHAGIC ANEMIA Status: Resolved Plan: -H&H stable -Lessen number of times checking H&H -Evaluate for signs and symptoms of acute blood loss -EGD showed stable kamryn stinson tear -Patient's Hg went from 14 to 7 -Received 1 unit pRBCs (10) COPD (chronic obstructive pulmonary disease) Status: Chronic Plan: -Continue home medications -Duonebs PRN - Plan Plan: Plan: [facility] has approved patient. Dr. Andrews wants a doc to doc at [phone] prior to pt dc to swing bed. <Lola Barry - Last Filed: 06/05/17 07:30> Attending Addendum - Attending Addendum I personally evaluated the patient and discussed the management with . [ Jhonny] I agree with the History, Examination, Assessment and Plan documented above with any addition or exceptions noted below. Patient stable this morning. Awaiting AICD interrogation per Dr. Young and recs from cardiology. Plan to discharge with conrad and follow up outpatient with urology. <Anup Serrano - Last Filed: 06/05/17 10:25>
--- NOTE | 2017-06-05 07:17 | CON ---
DATE OF SERVICE: 06/04/2017 ELECTROPHYSIOLOGIC CONSULTATION REPORT REFERRING PHYSICIAN: Dr. Funes. I am seeing Mr. Cassidy at our [facility] Telemetry Floor for the following problems: 1. Chronic systolic congestive heart failure with nonischemic cardiomyopathy. A. History of LVEF of 35%. 2. History of left bundle branch block. 3. History of Bi-V ICD implantation, currently with a Medtronic Viva S ANCHOR TACKER-D device. 4. Current admission with small-bowel obstruction status post an ileus. 5. History of upper GI bleed. A. Possible Lizbeth-Johnson tear in the gastric cardia but it was not actually bleeding on the EGD. 6. History of renal cell cancer, possible liver mets, status post liver biopsy in 05/28/2017. 7. Respiratory failure, now resolved. 8. Atrial arrhythmia, possibly atrial flutter with rapid rates noted. ALLERGIES: None. MEDICATIONS: Currently include Tylenol, Proventil, DuoNeb, Ecotrin, Coreg 3.125 mg twice a day, Feosol, Apresoline, Theragran, Cozaar 25 mg daily, Megace , Dulera, Zofran, MiraLax, Crestor, Flomax, Ultram. At home, the patient was on 12.5 mg carvedilol. SUBJECTIVE: Mr. Cassidy seems to be doing fair now. He is somewhat of a poor historian but seems that he has been to extensive hospitalization including admission with acute abdomen for which laparotomy was necessary for relieving bowel obstruction and resolving ischemic bowel. He had some maroon stools possibly related to the ischemic bowel or the Lizbeth-Johnson type of tears as noted by EGD. He has been noted to have atrial fibrillation/flutter episodes. The ICD was interrogated and again no major change found still with adequate longevity and a recent generator change in January was performed. Currently, otherwise doing well. No signs of angina or congestive heart failure. He denies palpitations. Does not pass out. REVIEW OF SYSTEMS: Rest of the 12-point review of systems, otherwise, unremarkable. PAST MEDICAL HISTORY: As above. He has been routinely followed in our office for his ICD use. SOCIAL HISTORY: The patient denies smoking, ETOH, or drug use. His is with him in the room. FAMILY HISTORY: Noncontributory. OBJECTIVE DATA: VITAL SIGNS: Blood pressure is 97/50, heart rate 103, respirations 18, temperature 98.1 degrees Fahrenheit. GENERAL: He is alert and oriented man in no apparent distress. NECK: Supple. Jugular veins not distended. CHEST: Coarse, no crackles. CARDIOVASCULAR: Heart sounds are regular to rate and rhythm. No murmur or gallop. ABDOMEN: Benign. Bowel sounds positive. EXTREMITIES: Lower extremities without edema, clubbing, or cyanosis. DATABASE: The ICD interrogation from 06/02/2017, does reveal adequate function , no atrial or ventricular arrhythmias at the monitor zone of 171 beats per minute and above. Longevity and lead parameters are adequate. Optimal status is suggestive of fluid overload. LABORATORY DATA: White count is 9.0, hemoglobin 8.2, platelet count is 143. INR 1.1. Sodium 138, potassium 3.9, BUN is 29, creatinine 1.05. Device interrogation reviewed and reveals V-paced rhythm, occasional sinus tachycardia noted on 06/04/2017. There was an episode of atrial flutter could be present as well. ASSESSMENT AND PLAN: Mr. Cassidy is a pleasant 71-year-old man with history of nonischemic cardiomyopathy, left bundle branch block, Bi-V ICD in place, also possible renal cell cancer, liver mets, who was admitted with acute abdomen requiring exploratory laparotomy. Had been anemic with GI bleed as well. Now, he is recovering well but has episodes of atrial arrhythmias. The EKGs are suggestive of rapid rates with no change in the QRS morphology. Atrial flutter is suspected. PLAN: 1. Regarding the atrial flutter; at this point, I will re-interrogate the ICD possibly turned on an atrial tachycardia pacing option. 2. Up titration of his beta blockers if technically feasible should be considered alternatively. If the episodes are not controlled, we could add sotalol versus amiodarone. 3. For now, a poor candidate for anticoagulation due to the recent surgery and GI bleed. Discuss with Dr. Funes. Thank you again for allowing me to participate in the care of this patient. MAI
[2017-06-05] MEDS: Aspirin 81 mg Enteric Coated Tablet PO SCH (10:15)
[2017-06-05] MEDS: Carvedilol 3.125 MG TAB PO SCH ×3 (10:15→22:31)
[2017-06-05] MEDS: Ferrous Sulfate 325 MG TAB PO SCH ×2 (10:15→17:50)
[2017-06-05] MEDS: Megestrol Acetate 800 MG/20 ML UDCUP PO SCH (10:16)
[2017-06-05] MEDS: Multivitamin W/ Minerals 1 TAB PO SCH (10:16)
[2017-06-05] MEDS: Rosuvastatin 20 MG TAB PO SCH (10:18)
[2017-06-05] MEDS: Ubidecarenone 50 MG CAP PO SCH (10:19)
[2017-06-05] MEDS: Mometasone/Formoterol 120 PUFF INHALER INH SCH ×2 (12:15→19:18)
--- NOTE | 2017-06-05 12:34 | PRG ---
DATE OF SERVICE: 06/05/2017 Mr. Cassidy is doing reasonably well. PHYSICAL EXAMINATION: VITAL SIGNS: Temperature 100.2, pulse 108, respirations 18, O2 sat 95%, blood pressure 125/63. HEENT: Unremarkable. NECK: No JVD. CARDIAC: S1 and S2 regular. ABDOMEN: Soft. EXTREMITIES: No edema. LABORATORY DATA: White blood cell count 8.2, hematocrit 21.7, platelet count 177. Sodium 130, pota ssium 3.9, chloride 104, CO2 27, BUN 29, creatinine 1.1, glucose 73. ASSESSMENT: 1. Peritonitis, which has improved. 2. Stable respiratory status. 3. Resolved hypotension. PLAN: Continue current therapy.
[2017-06-05] MEDS: diphenhydrAMINE 25 MG CAP PO PRN ×2 (13:51→22:31)
--- NOTE | 2017-06-05 16:01 | DIS-2 ---
DATE OF ADMISSION: 05/27/2017 RESIDENT: Ally Mar M.D., PGY-2. ADMITTING ATTENDING: Kaylin Gillespie D.O. CONSULTS: 1. Kirit Fulton M.D. 2. Cody Richardson M.D. 3. Leif Dugan M.D. 4. Brad Polanco M.D. PROCEDURES: 1. CT of the abdomen and pelvis with contrast that showed heterogenous enhancing left renal mass hi ghly suspicious for renal cell carcinoma. Indeterminate low density liver lesion, calcified low den sity mass in the gastrohepatic ligament, calcified granulomas in spleen, free fluid in the abdomen a nd pelvis, thickening of the wall with colon and some small bowel loops, probable omental thickening suspicious for metastatic disease. 2. Exploratory laparotomy, lysis of adhesions, infection of left lower liver mass. 3. Echocardiogram that showed ejection fraction of 30%-35% with mild mitral regurgitation and mild tricuspid regurgitation. 4. Esophagogastroduodenoscopy that showed possible Lizbeth-Johnson tear in the gastric cardia, not ac tively bleeding. 5. Acute abdomen series x-ray that showed worsening aeration of the lung bases with significant rachell e intraperitoneal air. 6. CT of the abdomen and pelvis with IV and oral contrast that showed operative changes of the abdo men, left renal cell carcinoma. PRIMARY DIAGNOSES: 1. Small bowel ischemia, resolved. 2. Intermittent atrial fibrillation/atrial flutter with rapid ventricular rate. SECONDARY DIAGNOSES: 1. Nonischemic cardiomyopathy with low ejection fraction and AICD in place. 2. Postoperative ileus, resolved. 3. Upper gastrointestinal bleed secondary to Lizbeth-Johnson tear, resolved. 4. Urinary retention secondary to benign prostatic hyperplasia. 5. Chronic kidney disease stage 3. 6. Coronary artery disease. 7. Hyperlipidemia. 8. Heart failure with reduced ejection fraction. 9. Chronic obstructive pulmonary disease. 10. Lymphoma in remission. 11. Left kidney mass suspicious for renal cell carcinoma. HISTORY OF PRESENT ILLNESS AND HOSPITAL COURSE: The patient is a 71-year-old male who presented to the emergency department with chief complaint of sudden onset abdominal pain and nausea. He was fou nd to have finding on exam of an acute abdomen with pain out of proportion to exam. A CT scan was p erformed with the above findings. The patient did have one episode of bright red blood per rectum w ith passage of clot prior to CT scan. Dr. Fulton was consulted from the emergency department and pl anned an exploratory laparotomy, which showed adhesion in the terminal ileum causing small bowel isc hemia. After surgery, the patient was placed in the ICU, continued to inability to wean from the ve ntilator immediately after surgery. The patient was transitioned off the ventilator in 1 day and di d well and was transferred to the medical floor. He developed an ileus postoperatively that was man aged with NG decompression. He was noted to have a significant amount of dark red/coffee-ground flory sis emitting from his NG tube, so Gastroenterology was consulted and an EGD was performed and the zane green source of the upper gastrointestinal bleeding was going to be related to Lizbeth-Johnson tear th at resolved on its own. Patient did experience a adequate drop in his hemoglobin and hematocrit and was given 1 unit of blood. The patient was noted to have a fair amount of free air or repeat imagi ng, so concern was raised for bowel preparation versus normal postoperative changes. Acute abdomen series and repeat CT of the abdomen and pelvis confirmed that this was related to postoperative alex ges. From a postsurgical standpoint, the patient is stable at this time. Regarding the patient's i ntermittent atrial fibrillation/atrial flutter, the patient has been intermittently tachycardic duri ng this hospitalization. Initially, the patient's tachycardia was thought to be related to pain yoanna robert volume depletion; however, when he was admitted to telemetry, his rhythm alternated between vent ricularly paced rhythm to atrial fibrillation/atrial flutter, sometimes with rapid ventricular rate. When the patient's oral medications were being held while he was n.p.o., his rate was manage d with IV metoprolol, he is on carvedilol orally at home, which was resumed after the patient's diet was advanced. His AICD was interrogated twice with no issues. Regarding the patient's urinary ret ention, he does have a past history of benign prostatic hyperplasia and it was notably difficult to place a Shah catheter in the operating room prior to surgery. The patient was not on home medicati ons for BPH. He was started on Flomax in the hospital. His Shah was discontinued after 7 days and the patient had acute urinary retention of over 1 liter. Shah catheter was replaced with difficul ty and the patient will require outpatient urological followup with his urologist Dr. Sheth. He wi ll likely need to be discharged with a Shah catheter in place. Regarding the left renal mass CT sc an finding, the patient will need outpatient followup for this as well. Regarding the patient's chr onic medical problems, all home medications were restarted when the patient's diet was resumed and a ll these remained stable. CURRENT DISPOSITION: Stable. CURRENT DISCHARGE PLAN: Includes placement at [facility] for fci when the patie nt is more stable from a cardiac standpoint.
[2017-06-05] MEDS: Losartan 25 MG TAB PO SCH (17:55)
[2017-06-05] MEDS: Tamsulosin HCl 0.4 MG CAP PO SCH (17:56)
[2017-06-05] MEDS: Polyethylene Glycol 3350 17 GM Packet PO SCH (17:56)
[2017-06-05] MEDS: Mupirocin 2% Ointment 22 GM Tube TOP SCH (22:32)
[2017-06-06] MEDS: Acetaminophen 500 MG TAB PO SCH ×3 (04:15→15:32)
[2017-06-06] MEDS: diphenhydrAMINE 25 MG CAP PO PRN (05:59)
--- NOTE | 2017-06-06 06:14 | PDOC.FM ---
- Subjective Subjective: Patient doing well this AM. Much improved from yesterday. Alert and awake this AM. No significant overnight events. - Objective MAR Reviewed: Yes Vital Signs & Weight: Vital Signs (12 hours) Temp Pulse Resp BP Pulse Ox 06/06/17 04:21 95 06/06/17 04:00 97.9 F 93 18 117/67 94 L 06/06/17 00:05 95 06/06/17 00:00 98.0 F 93 18 110/53 L 95 06/05/17 22:35 91 115/53 L 06/05/17 19:25 98.2 F 94 18 116/55 L 95 06/05/17 19:20 95 06/05/17 19:19 95 06/05/17 19:18 95 18 95 Weight Admit Weight 57.4 kg Weight 62.624 kg Most Recent Monitor Data Heart Rate from ECG 98 NIBP 118/58 NIBP BP-Mean 67 Respiration from ECG 26 SpO2 92 I&O: 06/04/17 06/05/17 06/06/17 06:59 06:59 05:59 Intake Total 3659 945 500 Output Total 2205 625 2800 Balance 1454 320 -2300 Result Diagrams: 06/06/17 06:00 06/04/17 05:59 EKG Reviewed by me: No Radiology Reviewed by me: No <Lola Barry - Last Filed: 06/06/17 07:54> - Objective Vital Signs & Weight: Vital Signs (12 hours) Temp Pulse Resp BP BP Pulse Ox 06/06/17 09:00 97.7 F 100 20 131/67 95 06/06/17 07:21 99 20 95 06/06/17 04:21 95 06/06/17 04:00 97.9 F 93 18 117/67 94 L 06/06/17 00:05 95 06/06/17 00:00 98.0 F 93 18 110/53 L 95 Weight Admit Weight 126 lb 8.72 oz Weight 138 lb 1 oz Most Recent Monitor Data Heart Rate from ECG 98 NIBP 118/58 NIBP BP-Mean 67 Respiration from ECG 26 SpO2 92 I&O: 06/05/17 06/06/17 06/07/17 07:59 06:59 06:59 Intake Total Output Total Balance Result Diagrams: 06/06/17 06:00 06/04/17 05:59 <Anup Serrano - Last Filed: 06/06/17 10:31> Phys Exam - Physical Examination Constitutional: NAD HEENT: moist MMs Neck: supple Respiratory: clear to auscultation bilateral Cardiovascular: RRR Gastrointestinal: soft, no distention Musculoskeletal: pulses present Neurological: moves all 4 limbs Psychiatric: A&O x 3 Deviation from normal: Rash on back; erythema with vesicles. Improved. <Lola Barry - Last Filed: 06/06/17 07:54> Dx/Plan (1) Sinus tachycardia Code(s): R00.0 - TACHYCARDIA, UNSPECIFIED Status: Resolved Plan: -Patient going into A-fib and A-flutter with RVR intermittently -AICD interrogated yesterday; will call Dr. Young for recs -Patient on carvedilol -Consider adding diltiazem if BP will allow; consult cards for recs (2) Urinary retention due to benign prostatic hyperplasia Code(s): N40.1 - BENIGN PROSTATIC HYPERPLASIA WITH LOWER URINARY TRACT SYMP; R33.8 - OTHER RETENTION OF URINE Status: Acute Plan: -Patient with indwelling conrad catheter -Hx of BPH s/p TURP -Conrad dc'd, but patient had significant urinary retention requiring recatheterization -Outpatient urological evaluation warranted -Likely discharge with conrad in place -Continue flomax -May need leg bag upon discharge (3) Hyperlipidemia Code(s): E78.5 - HYPERLIPIDEMIA, UNSPECIFIED Status: Chronic Plan: -Continue home meds (4) Lymphoma in remission Code(s): C85.90 - NON-[place]IN LYMPHOMA, UNSPECIFIED, UNSPECIFIED SITE Status: Chronic (5) Non-ischemic cardiomyopathy Code(s): I42.8 - OTHER CARDIOMYOPATHIES Status: Chronic Plan: -Echo with EF 30-35% -AICD in place -Continue medical management (6) CAD (coronary artery disease) Code(s): I25.10 - ATHSCL HEART DISEASE OF [place] CORONARY ARTERY W/O ANG PCTRS Status: Chronic Plan: -Continue current medical management (7) CKD (chronic kidney disease) stage 3, GFR 30-59 ml/min Code(s): N18.3 - CHRONIC KIDNEY DISEASE, STAGE 3 (MODERATE) Status: Chronic Plan: -Stable -Monitoring with BMP (8) Renal cell carcinoma Code(s): C64.9 - MALIGNANT NEOPLASM OF UNSP KIDNEY, EXCEPT RENAL PELVIS Status : Suspected Qualifiers: Laterality: left Qualified Code(s): C64.2 - Malignant neoplasm of left kidney, except renal pelvis Plan: -Left renal mass suspicious for renal cell carcinoma -Patient aware of findings and will need outpatient urological evaluation for tissue confirmation (9) Acute blood loss anemia Code(s): D62 - ACUTE POSTHEMORRHAGIC ANEMIA Status: Resolved Plan: -H&H stable -Evaluate for signs and symptoms of acute blood loss -EGD showed stable kamryn stinson tear -Patient's Hg went from 14 to 7 -Received 1 unit pRBCs during hospitalization (10) COPD (chronic obstructive pulmonary disease) Status: Chronic Plan: -Continue home medications -Duonebs PRN - Plan Plan: Plan: approved for swing bed in [place]. Spoke with this AM. She was not aware this was the plan. Will contact CM so they can have discussion with . <Lola Barry - Last Filed: 06/06/17 07:54> Attending Addendum - Attending Addendum I personally evaluated the patient and discussed the management with . [ Jhonny] I agree with the History, Examination, Assessment and Plan documented above with any addition or exceptions noted below. Stable per discharge from our perspective. Will discuss discharge plan with cards. <Anup Serrano - Last Filed: 06/06/17 10:31>
[2017-06-06 06:18] LABS: #Eosinphils 0.2 thou/uL (0.0-0.7); #Lymphocytes 1.2 thou/uL (1.20-3.40); #Monocytes 0.8 thou/uL (0.11-0.59); %Basophils 0.4 % (0.0-1.0); %Eosinophils 2.4 % (0.0-10.0); %Lymphocytes 11.7 % (21.0-51.0); %Monocytes 7.4 % (0.0-10.0); Hematocrit 24.8 % (42.0-52.0); Mean Platelet Volume 6.3 fL (7.4-10.4); Red Blood Cell (RBC) Count 2.41 mill/uL (4.70-6.10); White Blood Cell (WBC) Count 10.2 thou/uL (4.8-10.8)
[2017-06-06] MEDS: Mometasone/Formoterol 120 PUFF INHALER INH SCH (07:21)
[2017-06-06] MEDS: Ondansetron HCl/PF 4 MG/2 ML Vial IVP PRN (09:09)
[2017-06-06] MEDS: Megestrol Acetate 800 MG/20 ML UDCUP PO SCH (09:15)
[2017-06-06] MEDS: Multivitamin W/ Minerals 1 TAB PO SCH (09:15)
[2017-06-06] MEDS: Ferrous Sulfate 325 MG TAB PO SCH (09:16)
[2017-06-06] MEDS: Ubidecarenone 50 MG CAP PO SCH (09:16)
[2017-06-06] MEDS: Aspirin 81 mg Enteric Coated Tablet PO SCH (09:16)
[2017-06-06] MEDS: Tamsulosin HCl 0.4 MG CAP PO SCH (09:17)
[2017-06-06] MEDS: Rosuvastatin 20 MG TAB PO SCH (09:18)
[2017-06-06] MEDS: Losartan 25 MG TAB PO SCH (09:18)
[2017-06-06] MEDS: Mupirocin 2% Ointment 22 GM Tube TOP SCH ×2 (09:18→15:32)
[2017-06-06] MEDS: Polyethylene Glycol 3350 17 GM Packet PO SCH (09:18)
[2017-06-06] MEDS: Carvedilol 3.125 MG TAB PO SCH ×2 (09:19→15:32)
--- NOTE | 2017-06-06 14:36 | PRG ---
DATE OF SERVICE: 06/06/2017 SUBJECTIVE: Mr. Cassidy is awake and alert. He has got a history of metastatic left renal cell carc inoma with left gastrohepatic calcified mass of which he is 10 days status post exploratory laparoto my, lysis of adhesions, and resection of left lower lobe of the liver edge. The patient reports kristan quate pain control. He is tolerating diet, having normal bowel and urinary function. He did have u rinary retention, necessitating placement of a Shah catheter. From standpoint of his surgery, he i s stable. He ambulates with minimum difficulty. The patient has remained hemodynamically stable an d afebrile in the last 72 hours. Abdominal examination is unremarkable. Incision is intact, clean, dry, and healing. He clearly has no residual abdominal pain on examination. General Surgery is ok ay with the patient being discharged home today to follow up with Dr. Fulton in the Surgery Clinic u celia discharge. He follows up with Urology outpatient with regards to the urinary retention. He myles l be provided with a leg bag.
[2017-06-06 15:15] VITALS: BP 113/57; TEMP 98.7
[2017-06-06] MEDS ORDERED: FLU VACC TS2017-18 (>65YR) 0.5 ML SYRINGE IM ONE (16:00)
--- NOTE | 2017-06-08 07:13 | ADD-DIS-2 ---
ADDENDUM/NEW DISCHARGE SUMMARY DATE OF ADMISSION: 05/27/2017 DATE OF DISCHARGE: 06/06/2017 RESIDENT: Lola Barry DO ADMITTING ATTENDING: Kaylin Gillespie DO DISCHARGE ATTENDING: Anup Serrano M.D. CONSULTATIONS: 1. Kirit Fulton MD 2. Cody Richardson MD 3. Leif Dugan MD 4. Brad Polanco MD PROCEDURES: Please see previous discharge summary for list of procedures. PRIMARY DIAGNOSES: 1. Small bowel ischemia, resolved. 2. Intermittent atrial fibrillation/atrial flutter with rapid ventricular rate. SECONDARY DIAGNOSES: 1. Nonischemic cardiomyopathy with low ejection fraction and AICD in place. 2. Postoperative ileus, resolved. 3. Upper gastrointestinal bleed secondary to Lizbeth-Johnson tear, resolved. 4. Urinary retention secondary to benign prostatic hypertrophy. 5. Chronic kidney disease stage 3. 6. Coronary artery disease. 7. Hyperlipidemia. 8. Chronic obstructive pulmonary disease. 9. Lymphoma, in remission. 10. Left kidney mass suspicious for renal cell carcinoma. HISTORY OF PRESENT ILLNESS AND HOSPITAL COURSE: Please see Dr. Mar's discharge summary for HPI and hospital course. The patient's pacemaker was interrogated per Dr. Young. He does not want to do any interventions at this time. Heart rate has remained controlled. Blood pressure remained stable. Dr. Funes approved patient for discharge to [facility]. From his standpoint, he was medically cleared. A doc-to- doc was performed with Dr. Andrews for [facility]. Dr. Andrews accepted the patient and the patient was discharged to [facility] with Shah catheter in place. This was discussed with the patient and the family. The accepting facility is aware. The patient had severe urinary retention when Shah catheter was removed a few days previous and the staff had difficulty reinserting a new Shah. Thus, it was decided to keep it in place until follow up with Dr. Vázquez as an outpatient. This outpatient appointment has already been established. Dr. Vázquez is aware that the patient will follow up as an outpatient for left renal mass, as well. The patient was discharged to [facility] with all home medications. Flomax was added for urinary retention. DISPOSITION: Stable. DISCHARGE INSTRUCTIONS: 1. Location, [facility] for intermediate. 2. Diet: Regular. 3. Activity: As tolerated. 4. Followup: The patient has several followups in place. The patient is to follow up with Dr. Fulton, general surgeon, in 2-3 weeks. He is to follow up with Dr. Sheth, urologist, in 3 days. The patient was advised to call and schedule this appointment. The patient's primary care physician is Dr. Tong Rajput. He should follow up with PCP upon discharge from short-term nursing facility. The patient will be followed by Dr. Phill Andrews in [place]. MAI
--- NOTE | 2017-06-09 13:57 | PQF ---
ANDERS PIMENTEL RICHARD D MD [id number] [id number] CLINICAL DOCUMENTATION CLARIFICATION FORM: POST DISCHARGE Addendum to original discharge summary date: ____ Late entry note date: __ DATE: 06/09/2017 ATTN: DR. ACOSTA Please exercise your independent, professional judgment in responding to the clarification form. Clinical indicators are provided on the bottom of this form for your review Please check appropriate box(s): [ ] Simple Pneumonia (hospital acquired - nosocomial) [ ] Pneumonia of unknown etiology [ ] Pneumonia due to mechanical ventilation [ ] Other diagnosis [x] Unable to determine; I was not the physician that addressed the below mentioned diagnoses. Please forward to Dr. Polanco for further clarification. In addition, please specify: Present on Admission (POA): [ ] Yes [ ] No [x] Unable to determine For continuity of documentation, please document condition throughout progress notes and discharge summary. Thank You. CLINICAL INDICATORS - SIGNS / SYMPTOMS / LABS Progress note dated 06/[address] Collin shields in [place] pneumonia. Progress notes dated 05/[address] Collin shields in [place] right-sided infiltrate /effusion, Progress notes dated 06/[address] Collin shields bilateral pleural effusion, atelectasis, Cat Scan report dated 06/02 in impression states interval development of bilateral pleural fluid with mild bibasilar atelectasis. RISK FACTORS Acute hypoxic respiratory failure COPD Continued Vent after surgery TREATMENTS: Broad-spectrum antibiotics Neb treatments (This form is maintained as a part of the permanent medical record) 2014 [employer]. All Rights Reserved [email or web address] [phone] MAI
--- NOTE | 2017-06-12 16:04 | EKG ---
Test Reason : Blood Pressure : / mmHG Vent. Rate : 061 BPM Atrial Rate : 061 BPM P-R Int : 176 ms QRS Dur : 144 ms QT Int : 516 ms P-R-T Axes : 115 -71 089 degrees QTc Int : 519 ms AV dual-paced rhythm Abnormal ECG Confirmed by MARGIE AVENDANO DO ([id number]), film editor ADEN RICHARDS ([id number]) on 06/12/2017 4:03:55 PM Referred By: Confirmed By:MARGIE AVENDANO DO
--- NOTE | 2017-06-14 08:51 | PQF ---
ANDERS PIMENTEL, JUAN G [id number] CLINICAL DOCUMENTATION CLARIFICATION FORM: POST DISCHARGE Addendum to original discharge summary date: ____ Late entry note date: __ DATE: 06/14/2017 ATTN: DR. FLORES Please exercise your independent, professional judgment in responding to the clarification form. Clinical indicators are provided on the bottom of this form for your review Please check appropriate box(s): [ ] Aspiration Pneumonia [ ] Pneumonia secondary to (specify organism / underlying disease) [ ] Simple Pneumonia (community acquired - nosocomial) [ ] Pneumonia of unknown etiology [ ] Simple Pneumonia (hospital acquired- nosocomial) [ ] Pneumonia due to mechanical ventilation [ ] Other diagnosis [ ] Unable to determine In addition, please specify: Present on Admission (POA): [ ] Yes [ ] No [ ] Unable to determine For continuity of documentation, please document condition throughout progress notes and discharge summary. Thank You. CLINICAL INDICATORS - SIGNS / SYMPTOMS / LABS Progress note dated 05/31 states in impression right sided infiltrate/effusion Progress note dated 06/01 states in impression pneumonia Progress notes dated 06/03 states bilateral pleural effusion, atelectasis CT scan report dated 06/02 in impression states interval development of bilateral pleural fluid with mild bibasilar atelectasis RISK FACTORS Acute hypoxic respiratory failure COPD Continued Vent after surgery TREATMENTS: Broad-spectrum antibiotics Neb treatments (This form is maintained as a part of the permanent medical record) 2014 [employer]. All Rights Reserved [email or web address]
== END 2017-06-06 16:17 | disposition swing bed (61) | DRG 335 ==
LOC: ERS 13:07 → CCU 20:31 → SURG A 05-29 12:20 → 2NO 06-01 22:18
PROVIDERS: ADMIT Specialist; ATTEND Specialist
PROC: 0DNE0ZZ Release Large Intestine, Open Approach (ICD-10-PCS; principal; 2017-05-28)
PROC: 0FB20ZX Excision of Left Lobe Liver, Open Approach, Diagnostic (ICD-10-PCS; 2017-05-28)
PROC: 5A1935Z Respiratory Ventilation, Less than 24 Consecutive Hours (ICD-10-PCS; 2017-05-28)
PROC: 02HV33Z Insertion of Infusion Device into Superior Vena Cava, Percutaneous Approach (ICD-10-PCS; 2017-05-28)
PROC: 30233N1 Transfusion of Nonautologous Red Blood Cells into Peripheral Vein, Percutaneous Approach (ICD-10-PCS; 2017-05-30)
PROC: 0DJ08ZZ Inspection of Upper Intestinal Tract, Via Natural or Artificial Opening Endoscopic (ICD-10-PCS; 2017-05-31)
PROC: 3E0336Z Introduction of Nutritional Substance into Peripheral Vein, Percutaneous Approach (ICD-10-PCS; 2017-05-31)
DX: K55.9 Vascular disorder of intestine, unspecified (principal); J96.01 Acute respiratory failure with hypoxia; N17.9 Acute kidney failure, unspecified; I50.23 Acute on chronic systolic (congestive) heart failure; J18.9 Pneumonia, unspecified organism; K22.6 Gastro-esophageal laceration-hemorrhage syndrome; I95.9 Hypotension, unspecified; E87.2 Acidosis; E87.3 Alkalosis; I13.0 Hypertensive heart and chronic kidney disease with heart failure and stage 1 through stage 4 chronic kidney disease, or unspecified chronic kidney disease; C64.2 Malignant neoplasm of left kidney, except renal pelvis; E46 Unspecified protein-calorie malnutrition; K56.7 Ileus, unspecified; D62 Acute posthemorrhagic anemia; I42.9 Cardiomyopathy, unspecified; I48.92 Unspecified atrial flutter; R18.8 Other ascites; J98.11 Atelectasis; I44.7 Left bundle-branch block, unspecified; R16.0 Hepatomegaly, not elsewhere classified; K66.0 Peritoneal adhesions (postprocedural) (postinfection); I25.10 Atherosclerotic heart disease of native coronary artery without angina pectoris; Z95.5 Presence of coronary angioplasty implant and graft; Z85.72 Personal history of non-Hodgkin lymphomas; N40.1 Benign prostatic hyperplasia with lower urinary tract symptoms; R33.8 Other retention of urine; F17.210 Nicotine dependence, cigarettes, uncomplicated; N18.3 Chronic kidney disease, stage 3 (moderate); Z66 Do not resuscitate; E78.5 Hyperlipidemia, unspecified; J44.9 Chronic obstructive pulmonary disease, unspecified; Z95.810 Presence of automatic (implantable) cardiac defibrillator; I48.91 Unspecified atrial fibrillation; E83.39 Other disorders of phosphorus metabolism; Z68.20 Body mass index [BMI] 20.0-20.9, adult
CPT/HCPCS: 36415; 36416; 36430; 71010; 74022; 74177; 80048; 80053; 81001; 82274; 82553; 82570; 82607; 82747; 82805; 83036; 83605; 83690; 83735; 84100; 84300; 84484; 85025; 85610; 85730; 86850; 86900; 86901; 87040; 87077; 87086; 87186; 88307; 88311; 90471; 90682; 93005; 93010; 93306; 94002; 94003; 94640; 96361; 96365; 96375; 96376; A4216; C9113; G0008; G8978-GP-CJ; G8978-GP-CL; G8979-GP-CI; G8979-GP-CJ; J0131; J1650; J1815; J1940; J2001; J2250; J2270; J2405; J2543; J2704; J2765; J2920; J3010; J3370; J3475; J7050; J7620; P9016; Q2036; S0028

== ENCOUNTER 2017-08-20 11:12 | Day surgery (SDC) | payer MEDICARE ==
[2017-08-19 14:38] VITALS: BMI 16.9
[2017-08-20 11:49] LABS: #Eosinphils 0.1 thou/uL (0.0-0.7); #Lymphocytes 3.2 thou/uL (1.20-3.40); #Monocytes 0.9 thou/uL (0.11-0.59); %Basophils 0.2 % (0.0-1.0); %Eosinophils 1.1 % (0.0-10.0); %Monocytes 7.1 % (0.0-10.0); %Neutrophils 67.6 % (42.0-75.0); Hemoglobin 12.5 g/dL (14.0-18.0); Mean Corpuscular HGB CONC 31.1 g/dL (32.0-36.0); Mean Corpuscular Hemoglobin 29.6 pg (27.0-31.0); Mean Corpuscular Volume 95.1 fl (80.0-94.0); Mean Platelet Volume 6.6 fL (7.4-10.4); Platelet Count 257 thou/uL (130-400); RBC Distribution Width 18.7 % (11.5-14.5); Red Blood Cell (RBC) Count 4.21 mill/uL (4.70-6.10); White Blood Cell (WBC) Count 13.3 thou/uL (4.8-10.8)
[2017-08-20 11:56] LABS: INR-International Normal Ratio 1.2; PTT 29.7 SEC (22.9-36.1); Prothrombin Time 15.7 SEC (12.0-14.7)
[2017-08-20] MEDS ORDERED: Heparin 10,000 UNITS/1 ML VIAL ONE (12:08)
[2017-08-20 12:17] LABS: Anion Gap 16 mmol/L (10-20); BUN (Urea Nitrogen) 33 mg/dL (8.4-25.7); Calc. Creatinine Clearance 33 mL/min (70-130); Calcium 9.5 mg/dL (7.8-10.44); Carbon Dioxide 22 mmol/L (23-31); Chloride 105 mmol/L (98-107); Estimated GFR-MDRD 47; Glucose 77 mg/dL (83-110); Potassium 4.2 mmol/L (3.5-5.1); Sodium 139 mmol/L (136-145)
[2017-08-20] MEDS ORDERED: Ketamine 50 MG/ML VIAL ONE (12:53)
[2017-08-20] MEDS ORDERED: Propofol 500 MG/50 ML VIAL ONE (12:53)
[2017-08-20] MEDS ORDERED: Fentanyl 100 MCG/2 ML VIAL ONE (12:53)
[2017-08-20] MEDS ORDERED: DOPamine 400 MG/D5W 250 ML 250 ML ONE (14:25)
[2017-08-20] MEDS ORDERED: traMADol HCl 50 MG TAB ONE (16:53)
--- NOTE | 2017-08-20 23:56 | CCLSPC ---
DATE OF SERVICE: 08/20/2017 ELECTROPHYSIOLOGY STUDY AND AV NILA ABLATION REPORT REFERRING PHYSICIAN: Cody Richardson M.D. REASON FOR PROCEDURE: Mr. Cassidy is a 71-year-old gentleman with history of congestive heart failure, nonischemic cardiomyopathy, BiV ICD in place, history of lymphoma with radiation, UTIs in the past, recent ileus and frequent atrial tachyarrhythmias, very difficult to manage. He is here for an AV nila ablation , hencehis debilitated state and frequent occurences of atrial tachyarrhythmias and allow for ventricular pacing with a BiV pacer. PROCEDURE IN DETAIL: The patient received deep sedation per Anesthesia specialist. After adequate level of sedation achieved, the right femoral venous area was prepped, draped, and anesthetized using subcutaneous lidocaine and with ultrasound guidance, an 8-Divehi short sheath was introduced. Through this a SF bidirectional ablation catheter was advanced to the right atrium, His bundle, and right ventricular area. Recording and mapping were performed in each location. The AV node and the His bundle were located. Multiple AV nila burn were delivered increasing AV conduction time, but did not completely eliminate the AV conduction. At this point, catheter advanced to the His bundle area which was ablated. Resulting rhythm is AV block with ventricular pacing. This persisted with dopamine, a total of 7 lesions with 409 seconds was delivered at 40 jimenez setting. The patient tolerated the procedure well, no changes in cardiac silhouette was noted and again with IV dopamine challenge as well. Reprogramming the pacemaker to 70 base rate and continued adequate biventricular pacing. POS: [facility]
--- NOTE | 2017-08-21 07:19 | EKG ---
Test Reason : PREOP Blood Pressure : / mmHG Vent. Rate : 089 BPM Atrial Rate : 089 BPM P-R Int : 000 ms QRS Dur : 148 ms QT Int : 406 ms P-R-T Axes : 079 -69 096 degrees QTc Int : 493 ms AV sequential or dual chamber electronic pacemaker When compared with ECG of 02-JUN-2017 17:35, Electronic ventricular pacemaker has replaced Wide QRS tachycardia Vent. rate has decreased BY 55 BPM Confirmed by JHONNY HERNÁNDEZ, SDrew (4) on 08/21/2017 7:18:49 AM Referred By: [facility] Confirmed By:DR. Ursula BARRY MD
--- NOTE | 2017-08-23 20:19 | EKG ---
Test Reason : Blood Pressure : / mmHG Vent. Rate : 089 BPM Atrial Rate : 089 BPM P-R Int : 172 ms QRS Dur : 164 ms QT Int : 442 ms P-R-T Axes : 103 265 085 degrees QTc Int : 537 ms Poor data quality, interpretation may be adversely affected AV dual-paced rhythm Biventricular pacemaker detected Abnormal ECG When compared with ECG of 20-AUG-2017 11:30, No significant change was found Confirmed by JHONNY HERNÁNDEZ, SDrew (4) on 08/23/2017 8:18:43 PM Referred By: [facility] Confirmed By:DR. Ursula BARRY MD
== END 2017-08-20 17:22 | disposition home or self-care (01) ==
LOC: CCL 11:12
PROVIDERS: ATTEND Internal Medicine Cardiovascular Disease
DX: I47.1 Supraventricular tachycardia (principal); I42.0 Dilated cardiomyopathy; I50.9 Heart failure, unspecified; R53.81 Other malaise; J44.9 Chronic obstructive pulmonary disease, unspecified; E78.5 Hyperlipidemia, unspecified; N18.3 Chronic kidney disease, stage 3 (moderate); I25.10 Atherosclerotic heart disease of native coronary artery without angina pectoris; N40.1 Benign prostatic hyperplasia with lower urinary tract symptoms; R33.8 Other retention of urine; Z79.82 Long term (current) use of aspirin; Z79.818 Long term (current) use of other agents affecting estrogen receptors and estrogen levels; Z79.899 Other long term (current) drug therapy; Z95.810 Presence of automatic (implantable) cardiac defibrillator; Z92.3 Personal history of irradiation; Z85.72 Personal history of non-Hodgkin lymphomas; Z87.891 Personal history of nicotine dependence
CPT/HCPCS: 76942; 80048; 85025; 85610; 85730; 93005; 93650; C1769; C2630; 93010; J1265; J1644; J2704; J3010

== ENCOUNTER 2017-09-22 20:46 | Inpatient (IN) | payer MEDICARE ==
[2017-09-22] MEDS ORDERED: Morphine 4 MG/ML Carpuject ONE (21:11)
[2017-09-22] MEDS ORDERED: Ondansetron HCl/PF 4 MG/2 ML Vial ONE (21:12)
[2017-09-22] MEDS ORDERED: methylPREDNISolone Sod Succ/PF 125 MG/2 ML VIAL ONE (21:12)
[2017-09-22] MEDS ORDERED: Acetaminophen 325 MG TAB ONE (21:12)
[2017-09-22 21:42] LABS: #Basophils 0.1 thou/uL (0.0-0.2); #Lymphocytes 0.5 thou/uL (1.20-3.40); #Monocytes 0.6 thou/uL (0.11-0.59); #Neutrophils 8.9 thou/uL (1.40-6.50); %Basophils 0.8 % (0.0-1.0); %Eosinophils 0.2 % (0.0-10.0); %Lymphocytes 4.7 % (21.0-51.0); %Monocytes 6.1 % (0.0-10.0); %Neutrophils 88.3 % (42.0-75.0); Hemoglobin 12.5 g/dL (14.0-18.0); Mean Corpuscular HGB CONC 34.1 g/dL (32.0-36.0); Platelet Count 151 thou/uL (130-400); RBC Distribution Width 17.3 % (11.5-14.5); Red Blood Cell (RBC) Count 4.17 mill/uL (4.70-6.10); White Blood Cell (WBC) Count 10.1 thou/uL (4.8-10.8)
[2017-09-22 21:43] LABS: ALT (SGPT) 16 U/L (8-55); AST (SGOT) 29 U/L (5-34); Albumin 3.9 g/dL (3.4-4.8); Alkaline Phosphatase 56 U/L (40-150); Anion Gap 15 mmol/L (10-20); BUN (Urea Nitrogen) 13 mg/dL (8.4-25.7); Bilirubin, Total 0.5 mg/dL (0.2-1.2); Calc. Creatinine Clearance 0 mL/min (70-130); Calcium 9.5 mg/dL (7.8-10.44); Carbon Dioxide 26 mmol/L (23-31); Chloride 102 mmol/L (98-107); Estimated GFR-MDRD 54; Globulin 3.5 g/dL (2.4-3.5); Glucose 139 mg/dL (83-110); Potassium 3.7 mmol/L (3.5-5.1); Protein, Total 7.4 g/dL (5.8-8.1); Sodium 139 mmol/L (136-145)
[2017-09-22 21:44] LABS: CKMB 0.5 ng/mL (0-6.6)
[2017-09-22 21:45] LABS: Bilirubin Negative (Negative); Blood, Urine Moderate (Negative); Clarity Hazy (Clear); Glucose, Urine (Dipstick) Negative (Negative); Leukocyte Moderate (Negative); Nitrite Positive (Negative); Protein, Urine (Dipstick) 100 mg/dL (Neg-Trace); Specific Gravity, Urine 1.015 (1.005-1.030); Urobilinogen 0.2 mg/dL (0.2-1.0)
[2017-09-22 21:53] LABS: Bacteria/HPF 2+ HPF (None Seen); Squamous Epithelial 0-3 HPF (0-3)
--- NOTE | 2017-09-22 22:06 | RAD ---
FRONTAL RADIOGRAPH CHEST 09/22/17 COMPARISON: 05/31/17. HISTORY: Vomiting, shortness of breath and fever. FINDINGS: There is no pneumothorax, pleural fluid, focal consolidation, or alveolar edema. Heart and mediastina l contours are unremarkable. There is a multilead transvenous AICD, inserted via left subclavian approach. Lungs are hyperinflated with increased interstitial density, chronic/stable. IMPRESSION: Interstitial prominence and pulmonary hyperinflation suggests COPD in the proper clinical setting. No lobar consolidation or alveolar edema. POS: [facility]
[2017-09-22] MEDS ORDERED: cefTRIAXone\\ROCEPHIN 2 GM VIAL ONE (22:07)
[2017-09-22] MEDS ORDERED: Ibuprofen 800 MG TAB ONE (22:11)
[2017-09-22] MEDS ORDERED: Ondansetron ODT 4 MG TAB SL PRN (23:45)
[2017-09-22] MEDS ORDERED: HYDROcodone/Acetaminophen 5/325 mg Tablet PO PRN ×2 (23:45)
[2017-09-22] MEDS ORDERED: Ondansetron HCl/PF 4 MG/2 ML Vial IVP PRN (23:45)
[2017-09-22] MEDS ORDERED: Acetaminophen 325 MG TAB PO PRN (23:45)
[2017-09-22] MEDS ORDERED: Sodium Chloride 0.9% 1,000 ML IV SCH (23:46)
[2017-09-23 00:02] VITALS: BMI 19.5
[2017-09-23] MEDS ORDERED: Oseltamivir 75 MG CAP PO SCH (00:45)
[2017-09-23] MEDS ORDERED: Sodium Chloride 0.9% 1,000 ML IV SCH (00:45)
[2017-09-23] MEDS: Sodium Chloride 0.9% 1,000 ML IV SCH ×3 (01:24→18:28)
[2017-09-23] MEDS ORDERED: PROVENTIL INHALER 6.7 G (200 INHALATIONS) INH PRN (01:35)
--- NOTE | 2017-09-23 02:22 | PDOC.FPRHP ---
- History of Present Illness Chief Complaint: Weakness, Body aches, "not feeling well" History of Present Illness: 71 year old male with past medical history of COPD, BPH, and hx of A-fib s/p ablation that presents with a one day history of FINN, body aches, fatigue, chills , and weakness. His significant other was seen yesterday in the ED and diagnosed with Influenza B. Onset of symptoms was less than 24 hours ago. He was seen at [facility] ER and transferred to [facility] as patient was found to be tachypneic, hypoxic, tachycardic and febrile in outside facility. Tmax to 101 F. Patient denies any diarrhea, chest pain, palpitations or sore throat. He endorses a chronic dry cough that has not changed in the last 24 hours. CXR was done which did not indicate any signs of pneumonia. Patient was also found to have UA consistent with UTI, however, patient did not endorse any symptoms of dysuria. He does have a history of BPH for which he has required chronic catheterization since his last hospitalization in May of 2017. He sees Dr. Sheth monthly and has his indwelling catheter changed out at each of those visits. There are plans to potentially remove the conrad within the next few weeks, and if that is unsuccessful, patient may require prostate surgery. ED Course: Patient was given Rocephin 2g for treatment of UTI and 2L NS in outside ER. - Allergies/Adverse Reactions Allergies Allergy/AdvReac Type Severity Reaction Status Date / Time No Known Drug Allergies Allergy Verified 09/23/17 00:04 - Home Medications Medication Instructions Recorded Confirmed Type Multivitamin W/ Minerals 1 tab PO DAILY 12/22/14 09/23/17 History [Theragran M] Albuterol Sulfate [Proventil Hfa] 1 puff INH PRN PRN #1 inh 06/14/17 09/23/17 Rx Aspirin [Aspirin EC] 81 mg PO DAILY #30 tablet. 06/14/17 09/23/17 Rx Budesonide-Formoterol [Symbicort 1 puff INH BID #1 aer 06/14/17 09/23/17 Rx 160-4.5] Carvedilol [Coreg] 3.125 mg PO BID #60 tab 06/14/17 09/23/17 Rx Pantoprazole [Protonix] 40 mg PO DAILY #30 tab 06/14/17 09/23/17 Rx Rosuvastatin Calcium [Crestor] 40 mg PO DAILY #30 tablet 06/14/17 09/23/17 Rx Tamsulosin HCl [Flomax] 0.4 mg PO DAILY #30 cap 06/14/17 09/23/17 Rx Ferrous Sulfate [Feosol] 325 mg PO DAILY 09/23/17 09/23/17 History Furosemide [Lasix] 40 mg PO DAILY 09/23/17 09/23/17 History HYDROcodone/Acetaminophen [Pitcher 1 tab PO Q4HR PRN 09/23/17 09/23/17 History 10-325 Tablet] - History PMHx: COPD, BPH with chronic indwelling catheter, Left renal cell carcinoma, AAA , Lymphoma in remission, Non-ischemic cardiomyopathy PSHx: s/p ablation for A-fib, AICD, s/p laporotomy for SBO FHx: Noncontributory Social: Patient smoked two and a half PPD since 12 years old, but he quit during last hospitalization in May 2017. He denies any drug use or alcohol use currently. - Review of Systems General: reports: fever/chills, weight/appetite/sleep changes, fatigue. denies : night sweats Eyes: denies: vision changes ENT: denies: nasal congestion, rhinorrhea Respiratory: reports: cough, congestion. denies: shortness of breath Cardiovascular: denies: chest pain, palpitation, edema, paroxysmal nocturnal dyspnea, orthopnea Gastrointestinal: reports: nausea, vomiting (x1). denies: diarrhea, constipation Genitourinary: denies: incontinence, dysuria Skin: denies: rashes, lesions, jaundice Musculoskeletal: reports: pain (Chronic back pain), stiffness Neurological: reports: weakness. denies: syncope Psychological: denies: depression - Vital signs BP: [89/52] HR: [100] RR: [22] Tmax: [101] Pox: [88]% on [RA] Wt: [60 kg] - Physical Exam Constitutional: NAD HEENT: normocephalic and atraumatic, PERRLA, EOMI, conjunctiva clear Neck: supple Heart: RRR, no murmurs/rubs/gallops, pulses present, no edema Lungs: CTAB, no respiratory distress, no wheezing, no retractions Abdomen: soft, non-tender, bowel sounds present -Abdomen: Abdominal bruit Musculoskeletal: normal structure Neurological: no focal deficit Skin: no rash/lesions, capillary refill <2 seconds, no jaundice Psychiatric: normal mood and affect FMR H&P: Results - Labs Result Diagrams: 09/23/17 03:31 09/23/17 03:31 Lab results: WBC 10.1 thou/uL (4.8-10.8) 09/22/17 21:20 Hgb 12.5 g/dL (14.0-18.0) L 09/22/17 21:20 Hct 36.7 % (42.0-52.0) L 09/22/17 21:20 MCV 88.0 fl (80.0-94.0) 09/22/17 21:20 Plt Count 151 thou/uL (130-400) 09/22/17 21:20 Neutrophils % 88.3 % (42.0-75.0) H 09/22/17 21:20 Sodium 139 mmol/L (136-145) 09/22/17 21:20 Potassium 3.7 mmol/L (3.5-5.1) 09/22/17 21:20 Chloride 102 mmol/L (98-107) 09/22/17 21:20 Carbon Dioxide 26 mmol/L (23-31) 09/22/17 21:20 BUN 13 mg/dL (8.4-25.7) 09/22/17 21:20 Creatinine 1.30 mg/dL (0.7-1.3) 09/22/17 21:20 Glucose 139 mg/dL (83-110) H 09/22/17 21:20 Calcium 9.5 mg/dL (7.8-10.44) 09/22/17 21:20 Total Bilirubin 0.5 mg/dL (0.2-1.2) 09/22/17 21:20 AST 29 U/L (5-34) 09/22/17 21:20 ALT 16 U/L (8-55) 09/22/17 21:20 Alkaline Phosphatase 56 U/L (40-150) 09/22/17 21:20 CK-MB (CK-2) 0.5 ng/mL (0-6.6) 09/22/17 21:20 Serum Total Protein 7.4 g/dL (5.8-8.1) 09/22/17 21:20 Albumin 3.9 g/dL (3.4-4.8) 09/22/17 21:20 Urine Ketones Negative mg/dL (Negative) 09/22/17 21:37 Urine Blood Moderate (Negative) H 09/22/17 21:37 Urine Nitrite Positive (Negative) H 09/22/17 21:37 Ur Leukocyte Esterase Moderate (Negative) H 09/22/17 21:37 Urine RBC 7-10 HPF (0-3) H 09/22/17 21:37 Urine WBC 11-20 HPF (0-3) H 09/22/17 21:37 Ur Squamous Epith Cells 0-3 HPF (0-3) 09/22/17 21:37 Urine Bacteria 2+ HPF (None Seen) H 09/22/17 21:37 FMR H&P: A/P - Problem List (1) Sepsis Current Visit: Yes Status: Acute Code(s): A41.9 - SEPSIS, UNSPECIFIED ORGANISM (2) Influenza Current Visit: Yes Status: Acute Code(s): J11.1 - FLU DUE TO UNIDENTIFIED INFLUENZA VIRUS W OTH RESP MANIFEST (3) Abdominal bruit Current Visit: Yes Status: Chronic Code(s): R09.89 - OTH SYMPTOMS AND SIGNS INVOLVING THE CIRC AND RESP SYSTEMS (4) BPH (benign prostatic hyperplasia) Current Visit: No Status: Chronic Code(s): N40.0 - BENIGN PROSTATIC HYPERPLASIA WITHOUT LOWER URINRY TRACT SYMP (5) Lymphoma in remission Current Visit: No Status: Chronic Code(s): C85.90 - NON-HODGKIN LYMPHOMA, UNSPECIFIED, UNSPECIFIED SITE (6) Non-ischemic cardiomyopathy Current Visit: No Status: Chronic Code(s): I42.8 - OTHER CARDIOMYOPATHIES (7) Urinary retention due to benign prostatic hyperplasia Current Visit: No Status: Chronic Code(s): N40.1 - BENIGN PROSTATIC HYPERPLASIA WITH LOWER URINARY TRACT SYMP; R33.8 - OTHER RETENTION OF URINE (8) Renal cell carcinoma Current Visit: No Status: Suspected Code(s): C64.9 - MALIGNANT NEOPLASM OF UNSP KIDNEY, EXCEPT RENAL PELVIS Qualifiers: Laterality: left Qualified Code(s): C64.2 - Malignant neoplasm of left kidney, except renal pelvis (9) Acute respiratory failure with hypoxia Current Visit: No Status: Resolved Code(s): J96.01 - ACUTE RESPIRATORY FAILURE WITH HYPOXIA - Plan 1. Sepsis 2/2 viral-like illness - Likely influenza, although patient did test positive in outside ER; Sensitivity for these tests is <50% and patient has positive flu exposure - Onset of symptoms less than 24 hours - Significant other diagnosed with influenza B yesterday - Patient started on Tamiflu - Monitor vital signs - S/p 4L NS - IVF 125 ml/hr - Hold BP medications until BP stabilizes; patient's normal is SBP 90's - LA pending 2. Asymptomatic bacteriuria - Indwelling catheter for urinary retention from BPH since May 2017 - Likely chronic colonization - Given 2g Rocephin in ED - Continue with antibiotics for now - Patient sees Dr. Sheth monthly and has conrad catheter changed at that time - Urine culture pending - Patient has been treated for pansensitive klebsiella in the past 3. COPD - Continue with home medications - Duoneb treatments PRN for SOB, cough, wheezing 4. Suspected Left RCC - Uncertain if biopsy was performed - Not undergoing treatment at this time 5. Lymphoma in remission 6. BPH with chronic indwelling catheter since May 2017 - Sees Dr. Sheth monthly, conrad changed at that time - May need prostate surgery if continues to retain urine - Continue flomax 7. Acute hypoxic respiratory failure - Likely 2/2 number 1 - On 3L NC satting upper 90's - Continue O2 with goal >88% - Wean as appropriate - Patient does not use home O2 8. Ischemic Cardiomyopathy - Monitor fluid status - s/p AICD - Patient received 4L NS for sepsis - Currently on IVF at 125 ml/hr - Daily weights - Strict I&O's - Fluid restriction diet 9. Possible AAA - Abdominal bruit heard on exam - History of tobacco use >15 years - May need screening if not done previously Disposition/LOS: Admit to IMCU. Anticipate stay of 2-3 days with possible d/c home. FMR H&P: Upper Level - Plan Date/Time: 09/23/17214 IMichele MD, have evaluated this patient and agree with findings/plan as outlined by corporate legal intern resident. Pertinent changes/additions are listed here. 71 yo CM with multiple chronic medical conditions p/w body aches, chills, and generalized malaise since this morning. tested flu B positive yesterday and just started tamiflu. He was taken to [facility] ER where he was found to have abnormal VS and a dirty UA. Patient denies urinary symptoms different from his baseline, but he does have a chronic indwelling conrad catheter for issues with urinary retention 2/2 BPH. Pt was given 2L of NS and Rocephin and direct transferred to IMC unit at . Upon arrival, he was noted to be hypotensive but had normal mentation and states that his BPs always run on the low side of normal (90's/60's). Nonetheless, a 3rd liter of fluids was started shortly after arrival. PE: Gen: AAOx3, NAD CV: RRR, overall diminished heart sounds Lungs: non-labored, transmitted upper airway sounds, diminished air mvt in b/l bases Abd: faint L renal bruit noted Ext: extremities warm and well perfused; no edema A/P: 1) Sepsis suspected 2/2 #2: Admitted to IMCU. Flu swab negative at ER; however, RIDT's sensitivity only around 50% and and has lower negative predictive value during periods of high activity. Also, given the patient's consistent history, comorbities, and positive flu exposure, will proceed with treatment. S/p 3L IV bolus. Continue IVF at above maintenance rate O/N. Check lactic acid with AM labs. Strict I&O's and BP monitoring. Plan to transfer to ICU and add Levophed if BPs fail to respond to fluids and worsen O/N. 2) Suspected influenza infection: Continue tamiflu bid 3) Acute hypoxic respiratory failure: O2 prn, likely due to above. Monitor for developing pulmonary edema from IVF. 4) UTI vs. chronic colonization: Continue Rocephin for now. Pt has been treated multiple times in the past for pansensitive klebsiella. Ucx pending. No clinical findings of ascending UTI. May need to change out conrad. 5) L renal mass: uncertain etiology, renal cell carcinoma suspected. Metastatic disease not visualized in abdomen during recent exlap. Pt adamantly opposed to any interventions if this does not appear to be immediately life-threatening. 6) Nonischemic CM: continue lasix, monitor for volume overload. Hold carvedilol until BPs improve 7) BPH w/ chronic urinary retention: Continue flomax. Pt follows with Dr. Sheth outpt. 8) COPD: continue home medications 9) Other chronic medical conditions: continue home regimen Attending Addendum - Attending Addendum Date/Time: 09/23/172145 I personally evaluated the patient and discussed the management with Dr. Lawrence and Dr. Hager at time of evaluation. I agree with the History, Examination, Assessment and Plan documented above with any addition or exceptions noted below. 71 yo male with multiple medical problems admitted for sepsis 2/2 Influenza. Recent exposure at home now with symptoms consistent with influenza. At ER noted to meet sepsis criteria due to VS. Has received 2 L bolus. BP stable. Patient currently only complaining of body aches. Has history of urinary obstruction due to BPH with conrad since May 2017. At ER complained of flank pain but patient does not appear to be to bothered by it at present. UA indicative of UTI. Last culture reviewed from Aug 2017. VS reviewed. Febrile at outside facility. Labs reviewed. Imaging reviewed. PE unchanged from documented above. A/P: Will admit patient for sepsis 2/2 influenza. During workup for s/sx patient also noted to have UA consistent with UTI. Tamiflu and Rocephin started. Droplet precautions. Continue IVFs with intermittent bolus. Trend labs. Monitor BP closely. Start pressors as needed. Patient appears much better than chart suggest. Will change conrad cath. Johnson cultures pending. Will treat and adjust medications based on co-morbidities during hospital stay. Lovenox of VTE ppx. Rickey
[2017-09-23 04:33] LABS: Lactic Acid 0.8 mmol/L (0.5-2.2)
[2017-09-23 04:40] LABS: Anion Gap 11 mmol/L (10-20); BUN (Urea Nitrogen) 15 mg/dL (8.4-25.7); Calc. Creatinine Clearance 44 mL/min (70-130); Carbon Dioxide 22 mmol/L (23-31); Chloride 109 mmol/L (98-107); Estimated GFR-MDRD 56; Glucose 135 mg/dL (83-110); Sodium 138 mmol/L (136-145)
[2017-09-23 05:06] LABS: Anisocytosis SLIGHT = 6-15 cells (100X) (0-5/hpf); Band 3 % (5-11); Hemoglobin 10.4 g/dL (14.0-18.0); Lymphocytes 4 % (21-51); MDiff Complete? YES; Mean Corpuscular HGB CONC 32.4 g/dL (32.0-36.0); Mean Corpuscular Hemoglobin 30.7 pg (27.0-31.0); Mean Corpuscular Volume 94.6 fl (80.0-94.0); Mean Platelet Volume 6.9 fL (7.4-10.4); Monocytes 1 % (0-10); Neutrophil 92 % (42-75); PLT Morphology Comment Appears Decreased; Platelet Count 120 thou/uL (130-400); RBC Distribution Width 17.5 % (11.5-14.5); Red Blood Cell (RBC) Count 3.39 mill/uL (4.70-6.10); White Blood Cell (WBC) Count 6.8 thou/uL (4.8-10.8)
[2017-09-23] MEDS: Mometasone/Formoterol 120 PUFF INHALER INH SCH ×2 (07:31→18:41)
[2017-09-23] MEDS: Rosuvastatin 20 MG TAB PO SCH (09:17)
[2017-09-23] MEDS: Furosemide 40 MG TAB PO SCH (09:17)
[2017-09-23] MEDS: Tamsulosin HCl 0.4 MG CAP PO SCH (09:17)
[2017-09-23] MEDS: Aspirin 81 mg Enteric Coated Tablet PO SCH (09:17)
[2017-09-23] MEDS: Oseltamivir 75 MG CAP PO SCH ×2 (09:17→20:42)
[2017-09-23] MEDS: Ferrous Sulfate 325 MG TAB PO SCH (09:18)
[2017-09-23] MEDS: Enoxaparin Sodium 40 MG/0.4 ML SYRINGE SC SCH (09:18)
[2017-09-23] MEDS: Multivitamin W/ Minerals 1 TAB PO SCH (09:18)
[2017-09-23] MEDS: cefTRIAXone\\ROCEPHIN 1 GM, Syringe 0.4 ML in Sterile Water 9.6 ML SLOW IVP SCH (20:42)
[2017-09-23] MEDS ORDERED: cefTRIAXone\\ROCEPHIN 1 GM in Sodium Chloride 0.9% 100 ML IVPB SCH (22:00)
[2017-09-24] MEDS: HYDROcodone/Acetaminophen 10/325 mg Tablet PO PRN ×3 (05:27→22:11)
--- NOTE | 2017-09-24 08:16 | PDOC.FM ---
- Subjective Subjective: Feeling well this morning but says he is more tired today because he did not sleep well 2/2 chronic back pain. Family is concerned his face and arms look puffier but reassured he is receiving lasix. No additional concerns this morning. - Objective MAR Reviewed: Yes Vital Signs & Weight: Vital Signs (12 hours) Temp Pulse Resp BP Pulse Ox 09/24/17 07:27 99.5 F 78 17 105/53 L 90 L 09/24/17 05:00 99.6 F 99 18 116/59 L 92 L 09/24/17 00:00 99.8 F H 87 18 111/58 L 94 L 09/23/17 20:15 99.2 F 96 18 94 L Weight Weight 59.92 kg I&O: 09/23/17 09/24/17 09/25/17 06:59 06:59 06:59 Intake Total 1750 1610 Output Total 350 2400 Balance 1400 -790 Result Diagrams: 09/23/17 03:31 09/23/17 03:31 <Alejandra Hernandez - Last Filed: 09/24/17 10:49> - Objective Vital Signs & Weight: Vital Signs (12 hours) Temp Pulse Resp BP Pulse Ox 09/24/17 08:00 99.5 F 78 17 95 09/24/17 07:27 99.5 F 78 17 105/53 L 90 L 09/24/17 05:00 99.6 F 99 18 116/59 L 92 L 09/24/17 00:00 99.8 F H 87 18 111/58 L 94 L Weight Weight 59.92 kg I&O: 09/23/17 09/24/17 09/25/17 06:59 06:59 06:59 Intake Total 1750 1610 Output Total 350 2400 Balance 1400 -790 Result Diagrams: 09/23/17 03:31 09/23/17 03:31 <Williams Smallwood - Last Filed: 09/24/17 11:22> Phys Exam - Physical Examination Constitutional: NAD HEENT: moist MMs, sclera anicteric Neck: supple Respiratory: no wheezing, clear to auscultation bilateral Cardiovascular: RRR, no significant murmur Gastrointestinal: soft, non-tender, no distention, positive bowel sounds Musculoskeletal: no edema Neurological: non-focal, moves all 4 limbs Psychiatric: normal affect, A&O x 3 Skin: cap refill <2 seconds <Alejandra Hernandez - Last Filed: 09/24/17 10:49> Dx/Plan (1) Influenza Code(s): J11.1 - FLU DUE TO UNIDENTIFIED INFLUENZA VIRUS W OTH RESP MANIFEST Status: Acute (2) Sepsis Code(s): A41.9 - SEPSIS, UNSPECIFIED ORGANISM Status: Acute (3) Abdominal bruit Code(s): R09.89 - OTH SYMPTOMS AND SIGNS INVOLVING THE CIRC AND RESP SYSTEMS Status: Chronic (4) BPH (benign prostatic hyperplasia) Code(s): N40.0 - BENIGN PROSTATIC HYPERPLASIA WITHOUT LOWER URINRY TRACT SYMP Status: Chronic (5) CAD (coronary artery disease) Code(s): I25.10 - ATHSCL HEART DISEASE OF [place] CORONARY ARTERY W/O ANG PCTRS Status: Chronic (6) CKD (chronic kidney disease) stage 3, GFR 30-59 ml/min Status: Chronic (7) COPD (chronic obstructive pulmonary disease) Status: Chronic (8) Lymphoma in remission Code(s): C85.90 - NON-HODGKIN LYMPHOMA, UNSPECIFIED, UNSPECIFIED SITE Status: Chronic (9) Systolic CHF Code(s): I50.20 - UNSPECIFIED SYSTOLIC (CONGESTIVE) HEART FAILURE Status: Chronic (10) Urinary retention due to benign prostatic hyperplasia Code(s): N40.1 - BENIGN PROSTATIC HYPERPLASIA WITH LOWER URINARY TRACT SYMP; R33.8 - OTHER RETENTION OF URINE Status: Chronic (11) Renal cell carcinoma Code(s): C64.9 - MALIGNANT NEOPLASM OF UNSP KIDNEY, EXCEPT RENAL PELVIS Status : Suspected QualifierTitle: Laterality: left Qualified Code(s): C64.2 - Malignant neoplasm of left kidney, except renal pelvis (12) Congestive heart failure Code(s): I50.9 - HEART FAILURE, UNSPECIFIED Status: Resolved - Plan Plan: 1. Sepsis 2/2 viral-like illness - Likely influenza, although patient did test negative in outside ER; Sensitivity for these tests is <50% and patient has positive flu exposure - Onset of symptoms less than 24 hours - diagnosed with influenza B yesterday - Tamiflu Day 2 - Monitor vital signs - S/p 4L NS and maintenance fluids - Hold BP medications until BP stabilizes; patient's normal is SBP 90's 2. Asymptomatic bacteriuria - Indwelling catheter for urinary retention from BPH since May 2017 - Likely chronic colonization - Given 2g Rocephin in ED - Continue with antibiotics for now - Patient sees Dr. Sheth monthly and has conrad catheter changed at that time, next due this coming Wednesday - Urine culture pending - Patient has been treated for pansensitive klebsiella in the past 3. COPD - Continue with home medications - Duoneb treatments PRN for SOB, cough, wheezing 4. 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 Lymphoma in remission 6. BPH with chronic indwelling catheter since May 2017 - Sees Dr. Sheth monthly, conrad changed at that time - Continue flomax 7. Acute hypoxic respiratory failure - Likely 2/2 number 1 - 90s on room air - Continue O2 with goal >88% - Patient does not use home O2 8. sCHF - EF 30-35% on Echo 05/2017 - Monitor fluid status - s/p AICD - Daily weights - Strict I&O's - Fluid restriction diet 9. Possible AAA - Abdominal bruit heard on admission exam, not heard clearly this morning with significant + BS - History of tobacco use >15 years - May need outpatient screening if not done previously - D/W family this morning - Not commented on in CT A/P performed 06/2017 PPX: Lovenox and protonix Dispo: Monitor and continue abx and Tamiflu. Pending UCx. Likely stable for D/C tomorrow on Tamiflu <Alejandra Hernandez - Last Filed: 09/24/17 10:49> Attending Addendum - Attending Addendum Date/Time: 09/24/17 1120 I personally evaluated the patient and discussed the management with I agree with the History, Examination, Assessment and Plan documented above with any addition or exceptions noted below.Will restart low dose coreg today expectant management appears improved O2 Sat room air staying above 90 at present. Discussed care plan with patient and family. <Williams Smallwood - Last Filed: 09/24/17 11:22>
[2017-09-24] MEDS: Mometasone/Formoterol 120 PUFF INHALER INH SCH ×2 (08:17→19:03)
[2017-09-24] MEDS: Ferrous Sulfate 325 MG TAB PO SCH (08:50)
[2017-09-24] MEDS: Enoxaparin Sodium 40 MG/0.4 ML SYRINGE SC SCH (08:50)
[2017-09-24] MEDS: Furosemide 40 MG TAB PO SCH (08:50)
[2017-09-24] MEDS: Tamsulosin HCl 0.4 MG CAP PO SCH (08:50)
[2017-09-24] MEDS: Oseltamivir 75 MG CAP PO SCH ×2 (08:50→21:21)
[2017-09-24] MEDS: Rosuvastatin 20 MG TAB PO SCH (08:50)
[2017-09-24] MEDS: Aspirin 81 mg Enteric Coated Tablet PO SCH (08:50)
[2017-09-24] MEDS: Multivitamin W/ Minerals 1 TAB PO SCH (08:50)
--- NOTE | 2017-09-24 18:20 | CON ---
DATE OF CONSULTATION: 09/24/2017 HISTORY OF PRESENT ILLNESS: This is a 71-year-old white male I have known for a few months. He was in fairly extreme state of deconditioning and urinary retention and he has been improving at home. Jamey dunham has a left-sided renal mass, it is probably a renal cancer, but is not in any position to surgicall y undergo treatment of this. He also has mentioned as urinary retention, which had been changed in h is catheter out each month in the office. He had a cystometrogram done probably 5 or 6 weeks ago tien t showed only a weak detrusor, so a TURP at this point was not reasonable, but hopefully his bladder function will return with a catheter in. He was admitted here, it looks like yesterday, looking thro ugh the complaints that he gave in the emergency room, he was having vomiting and nausea and fever an d chills at home and chronic back pain. His has the flu and it was thought that he may have the flu, apparently he was negative when he was swabbed for the flu downstairs. He was admitted by the [facility]. Looking through their notes, they report also headache and fatigue and body a ches and weakness. He did have a temperature max of 101.5 there. His urinalysis which I believe was taken from his indwelling Shah showed pyuria and hematuria, and was cultured. He was started on Ro cephin. I think he may have been started on that actually even before he got to this hospital. He h as been continued on Rocephin. I do not see any other antibiotic that has been given. His white cou nt when he got here is 10.1, hemoglobin 12.5, his white count 6.8 this morning. His creatinine is no rmal. Liver function tests normal. PAST MEDICAL HISTORY: He has had a history of COPD. He has had a history of atrial fibrillation. Jamey dunham has had a history of small-bowel obstruction. He has had a history of lymphoma. PAST SURGICAL HISTORY: He has had ablations. He has had, I think, a pacemaker placed. He has had a laparotomy that was his big most recent thing that was done in the last fall, I believe. SOCIAL HISTORY: He has a history of cigarette smoking, none currently, although did not quit until l ast followup. PHYSICAL EXAMINATION: ABDOMEN: He does not have flank tenderness. He does have some lower back pain. abdomen is currentl y without mass. GENITOURINARY: Penis is with catheter. Indwelling catheter draining the fluid and it looks like he has a very good urine output. Testicles was descended. There is no evidence of epididymitis. He hannon s got some sensitivity, but no induration. IMPRESSION: 1. Urinary retention related to deconditioning and poor detrusor contraction, probably did have at s ome point bladder outlet obstruction as the cause and it is possible that over the next month or so, his bladder function may return and may be able to have a TURP done and resume normal urination. For now, he is to be managed with indwelling Shah. 2. Febrile illness with flu-like symptoms in a patient that tested negative for flu, but his parvez s the flu. 3. Possible urinary tract infection, certainly colonization of the urine, but I do not think until jamey dunham had blood or urine cultures back. He can really tell that he whether just colonization. I am not sure blood cultures were done, we will have to see. I would be very surprised if he does not grow ou t organisms from his urine cultures, it sounds like this was taken either from the catheter or the ba g, and he would expect that to occur in a patient with indwelling catheter. The fact that he did not have an elevated white count when he came in may go against this being a bacterial infection. In an y event, he is on antibiotics and I think we can just wait for the cultures to get back, otherwise I really do not have anything else to add to his care at this time. He is not due for a catheter meghan dunham yet.
[2017-09-24] MEDS: Carvedilol 3.125 MG TAB PO SCH (21:21)
[2017-09-24] MEDS: cefTRIAXone\\ROCEPHIN 1 GM, Syringe 0.4 ML in Sterile Water 9.6 ML SLOW IVP SCH (21:21)
[2017-09-25] MEDS: Mometasone/Formoterol 120 PUFF INHALER INH SCH ×2 (07:31→19:03)
--- NOTE | 2017-09-25 07:48 | PDOC.FM ---
- Subjective Subjective: CC: Nausea HPI: Patient sitting in bed eating breakfast. Denies CP and SOB. Nursing staff at beside performing AM vitals. During exam, patient became nauseated and vomited breakfast. Denies prior episodes. - Objective MAR Reviewed: Yes Vital Signs & Weight: Vital Signs (12 hours) Temp Pulse Resp BP Pulse Ox 09/25/17 07:32 90 L 09/25/17 07:31 89 16 09/25/17 04:35 93 L 09/25/17 04:00 99.1 F 93 19 122/65 93 L 09/25/17 03:23 93 L Weight Weight 59.602 kg I&O: 09/24/17 09/25/17 09/26/17 06:59 06:59 06:59 Intake Total 1610 1280 Output Total 2400 2250 Balance -790 -970 Result Diagrams: 09/23/17 03:31 09/23/17 03:31 Radiology Reviewed by me: Yes <Richard Wilkins - Last Filed: 09/25/17 10:20> - Objective Vital Signs & Weight: Vital Signs (12 hours) Temp Pulse Resp BP Pulse Ox 09/25/17 07:35 98.4 F 101 H 16 110/63 89 L 09/25/17 07:32 90 L 09/25/17 07:31 89 16 09/25/17 04:35 93 L 09/25/17 04:00 99.1 F 93 19 122/65 93 L 09/25/17 03:23 93 L Weight Weight 59.602 kg I&O: 09/24/17 09/25/17 09/26/17 06:59 06:59 06:59 Intake Total 1610 1280 Output Total 2400 2250 Balance -790 -970 Result Diagrams: 09/23/17 03:31 09/23/17 03:31 <Darling Clifton - Last Filed: 09/25/17 11:31> Phys Exam - Physical Examination Constitutional: NAD HEENT: moist MMs, oral pharynx no lesions Respiratory: no wheezing, clear to auscultation bilateral (decreased air movement. ) Cardiovascular: RRR, no significant murmur Gastrointestinal: non-tender Musculoskeletal: no edema Neurological: non-focal, moves all 4 limbs Psychiatric: normal affect, A&O x 3 <Claudette,Richard W - Last Filed: 09/25/17 10:20> Dx/Plan (1) Influenza Code(s): J11.1 - FLU DUE TO UNIDENTIFIED INFLUENZA VIRUS W OTH RESP MANIFEST Status: Acute (2) Abdominal bruit Code(s): R09.89 - OTH SYMPTOMS AND SIGNS INVOLVING THE CIRC AND RESP SYSTEMS Status: Chronic (3) BPH (benign prostatic hyperplasia) Code(s): N40.0 - BENIGN PROSTATIC HYPERPLASIA WITHOUT LOWER URINRY TRACT SYMP Status: Chronic (4) CAD (coronary artery disease) Code(s): I25.10 - ATHSCL HEART DISEASE OF [place] CORONARY ARTERY W/O ANG PCTRS Status: Chronic (5) CKD (chronic kidney disease) stage 3, GFR 30-59 ml/min Code(s): N18.3 - CHRONIC KIDNEY DISEASE, STAGE 3 (MODERATE) Status: Chronic (6) COPD (chronic obstructive pulmonary disease) Status: Chronic (7) Lymphoma in remission Code(s): C85.90 - NON-HODGKIN LYMPHOMA, UNSPECIFIED, UNSPECIFIED SITE Status: Chronic (8) Systolic CHF Code(s): I50.20 - UNSPECIFIED SYSTOLIC (CONGESTIVE) HEART FAILURE Status: Chronic (9) Urinary retention due to benign prostatic hyperplasia Code(s): N40.1 - BENIGN PROSTATIC HYPERPLASIA WITH LOWER URINARY TRACT SYMP; R33.8 - OTHER RETENTION OF URINE Status: Chronic (10) Renal cell carcinoma Code(s): C64.9 - MALIGNANT NEOPLASM OF UNSP KIDNEY, EXCEPT RENAL PELVIS Status : Suspected QualifierTitle: Laterality: left Qualified Code(s): C64.2 - Malignant neoplasm of left kidney, except renal pelvis - Plan Plan: 1. Presumed Influenza - diagnosed with influenza B - Tamiflu Day 3 - Monitor vital signs- T-max in 24 hr 100.3F - Off oxygen 2. Asymptomatic bacteriuria - Rocephin Day 3. Urology recommends abx until UCx results. Current results show mixed enteric bacteria - Indwelling catheter for urinary retention from BPH since May 2017 - Likely chronic colonization - Patient has been treated for pansensitive klebsiella in the past 3. COPD - Continue with home medications - Duoneb treatments PRN for SOB, cough, wheezing - Keep O2 between 88 and 92% 4. 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 Lymphoma in remission 6. BPH with chronic indwelling catheter since May 2017 - Sees Dr. Sheth monthly, conrad changed at that time - Continue flomax 7. Acute hypoxic respiratory failure - Likely 2/2 number 1 - 90s on room air - Continue O2 with goal >88% - Patient does not use home O2 8. sCHF - EF 30-35% on Echo 05/2017 - Monitor fluid status - s/p AICD - Daily weights - Strict I&O's - Fluid restriction diet 9. Possible AAA - Abdominal bruit heard on admission exam, not heard clearly this morning with significant + BS - History of tobacco use >15 years - May need outpatient screening if not done previously PPX: Lovenox and protonix Dispo: Monitor and continue abx and Tamiflu. Pending UCx. Given episode of N/V this morning and since UCx not fully resulted, will keep additional day. he also had a low grade fever overnight but his fever curve has been trending down. Plan for d/c tomorrow. <Richard Wilkins - Last Filed: 09/25/17 10:20> Attending Addendum - Attending Addendum Date/Time: 09/25/17 1130 I personally evaluated the patient and discussed the management with Dr. Wilkins. I agree with the History, Examination, Assessment and Plan documented above with any addition or exceptions noted below. The patient is overall feeling better but had nausea this morning. Will monitor today and if better likely d/c tomorrow. Pt continuing tamiflu. <Darling Clifton - Last Filed: 09/25/17 11:31>
[2017-09-25] MEDS: HYDROcodone/Acetaminophen 10/325 mg Tablet PO PRN ×3 (08:05→20:55)
[2017-09-25] MEDS: Enoxaparin Sodium 40 MG/0.4 ML SYRINGE SC SCH (08:06)
[2017-09-25] MEDS: Oseltamivir 75 MG CAP PO SCH ×2 (08:07→20:52)
[2017-09-25] MEDS: Multivitamin W/ Minerals 1 TAB PO SCH (08:07)
[2017-09-25] MEDS: Ferrous Sulfate 325 MG TAB PO SCH (08:07)
[2017-09-25] MEDS: Aspirin 81 mg Enteric Coated Tablet PO SCH (08:07)
[2017-09-25] MEDS: Carvedilol 3.125 MG TAB PO SCH ×2 (08:07→20:52)
[2017-09-25] MEDS: Rosuvastatin 20 MG TAB PO SCH (08:07)
[2017-09-25] MEDS: Tamsulosin HCl 0.4 MG CAP PO SCH (08:08)
[2017-09-25] MEDS: Furosemide 40 MG TAB PO SCH (08:08)
[2017-09-25] MEDS: Ondansetron ODT 4 MG TAB PO PRN (09:38)
[2017-09-25] MEDS: Ondansetron HCl/PF 4 MG/2 ML Vial IVP PRN ×2 (14:38→20:53)
[2017-09-25] MEDS: cefTRIAXone\\ROCEPHIN 1 GM, Syringe 0.4 ML in Sterile Water 9.6 ML SLOW IVP SCH (20:54)
--- NOTE | 2017-09-25 21:50 | PDOC.EVN ---
Event Note - Event Note Event Note: Called to speak with patient's by request of staff. She had concerns that he was not getting any better and may be getting worse. I spoke at length about the suspected influenza likely causing him to not be as responsive and energetic as his normal self. Explained UTI was being treated appropriately with abx. Explained nausea/vomiting could be related to tamiflu (up to 16% of patients) and likely not a concern to his overall health at this time. We will try to give with food from now on. Only has 3 doses left. She was thankful for the call. Explained there is a chance that discharge home tomorrow will be discussed. She wanted to speak with the day team about it but ultimately expressed acceptance if that plan was desired after our conversation. She plans to be at hospital by 930-945 tomorrow morning.
[2017-09-26] MEDS: Mometasone/Formoterol 120 PUFF INHALER INH SCH ×2 (07:20→19:14)
[2017-09-26] MEDS ORDERED: ISOVUE-370 76%-LOCM 1 ML ONE (07:36)
--- NOTE | 2017-09-26 07:59 | PDOC.FM ---
- Subjective Subjective: CC: Nausea and Vomiting HPI: States he feels nauseated and has vomited twice since yesterday morning. Denies abdominal pain. States he is passing gas and has had a bowel movement in last 24 hours. No family at bedside. - Objective MAR Reviewed: Yes Vital Signs & Weight: Vital Signs (12 hours) Temp Pulse Resp BP Pulse Ox 09/26/17 07:48 97.7 F 88 16 124/56 L 90 L 09/26/17 03:08 91 L Weight Weight 59.602 kg I&O: 09/25/17 09/26/17 09/27/17 06:59 06:59 06:59 Intake Total 1280 240 Output Total 2250 1400 Balance -970 -1160 Result Diagrams: 09/26/17 08:10 09/26/17 08:10 EKG Reviewed by me: Yes (paced rhythm ) <Richard Wilkins - Last Filed: 09/26/17 09:13> - Objective Vital Signs & Weight: Vital Signs (12 hours) Temp Pulse Resp BP BP Pulse Ox 09/26/17 11:31 97.8 F 84 16 105/55 L 92 L 09/26/17 08:00 97.7 F 88 16 90 L 09/26/17 07:48 97.7 F 88 16 124/56 L 90 L 09/26/17 04:00 98.7 F 85 16 116/59 L 90 L 09/26/17 03:08 91 L Weight Weight 59.466 kg I&O: 09/25/17 09/26/17 09/27/17 06:59 06:59 06:59 Intake Total 1280 600 Output Total 2250 2075 Balance -970 -1475 Result Diagrams: 09/26/17 08:10 09/26/17 08:10 <Darling Clifton - Last Filed: 09/26/17 14:24> Phys Exam - Physical Examination Constitutional: NAD HEENT: sclera anicteric Dry MM Respiratory: no wheezing, clear to auscultation bilateral (decreased air movment. unchanged on exam ) Cardiovascular: RRR, no significant murmur Gastrointestinal: no distention, positive bowel sounds rigid abdomen, TTP RUQ and RLQ Musculoskeletal: no edema, pulses present Neurological: non-focal, moves all 4 limbs Psychiatric: normal affect, A&O x 3 Skin: cap refill <2 seconds <Richard Wilkins - Last Filed: 09/26/17 09:13> Dx/Plan (1) Nausea & vomiting Code(s): R11.2 - NAUSEA WITH VOMITING, UNSPECIFIED Status: Acute (2) Influenza Code(s): J11.1 - FLU DUE TO UNIDENTIFIED INFLUENZA VIRUS W OTH RESP MANIFEST Status: Acute (3) Abdominal bruit Code(s): R09.89 - OTH SYMPTOMS AND SIGNS INVOLVING THE CIRC AND RESP SYSTEMS Status: Chronic (4) BPH (benign prostatic hyperplasia) Code(s): N40.0 - BENIGN PROSTATIC HYPERPLASIA WITHOUT LOWER URINRY TRACT SYMP Status: Chronic (5) CAD (coronary artery disease) Code(s): I25.10 - ATHSCL HEART DISEASE OF [place] CORONARY ARTERY W/O ANG PCTRS Status: Chronic (6) CKD (chronic kidney disease) stage 3, GFR 30-59 ml/min Code(s): N18.3 - CHRONIC KIDNEY DISEASE, STAGE 3 (MODERATE) Status: Chronic (7) COPD (chronic obstructive pulmonary disease) Status: Chronic (8) Systolic CHF Code(s): I50.20 - UNSPECIFIED SYSTOLIC (CONGESTIVE) HEART FAILURE Status: Chronic (9) Urinary retention due to benign prostatic hyperplasia Code(s): N40.1 - BENIGN PROSTATIC HYPERPLASIA WITH LOWER URINARY TRACT SYMP; R33.8 - OTHER RETENTION OF URINE Status: Chronic - Plan Plan: 1. Nausea and Vomiting - Rigid abdomen on exam but patient states that is his baseline. TTP RUQ and RLQ - CT abdomen and pelvis with contrast today to evaluate. - no white count and is having BM. 2. Presumed Influenza - diagnosed with influenza B - Tamiflu Day 4 - Monitor vital signs- T-max in 24 hr 101F - Off oxygen 2. Asymptomatic bacteriuria - Rocephin Day 4. UCx grew pansensitive klebsellia - Indwelling catheter for urinary retention from BPH since May 2017 - Likely chronic colonization 3. COPD - Continue with home medications - Duoneb treatments PRN for SOB, cough, wheezing - Keep spO2 between 88 and 92% 4. BPH with chronic indwelling catheter since May 2017 - Sees Dr. Sheth monthly, conrad changed at that time - Continue flomax 5. sCHF - EF 30-35% on Echo 05/2017 - Monitor fluid status - s/p AICD - Daily weights - Strict I&O's - Fluid restriction diet PPX: Lovenox and protonix Dispo: Fevered over night and has had worsening N/V. CT pending but lab work unremarkable. Will adjust plan based on CT results. could possible go to medical bed if telemetry bed is needed. will likely need 1-2 more days in hospital. <Richard Wilkins - Last Filed: 09/26/17 09:13> Attending Addendum - Attending Addendum Date/Time: 09/26/17 0692 I personally evaluated the patient and discussed the management with Dr. Wilkins. I agree with the History, Examination, Assessment and Plan documented above with any addition or exceptions noted below. Patient has persistent nausea which could be from the flu or tamiflu however his abdomen is rigid this morning. Will get CT abdomen and pelvis to further workup nausea, abdominal complaints. <Darling Clifton - Last Filed: 09/26/17 14:24>
[2017-09-26 08:20] LABS: #Lymphocytes 1.8 thou/uL (1.20-3.40); #Monocytes 0.4 thou/uL (0.11-0.59); #Neutrophils 1.8 thou/uL (1.40-6.50); %Basophils 0.2 % (0.0-1.0); %Eosinophils 0.2 % (0.0-10.0); %Lymphocytes 45.1 % (21.0-51.0); %Monocytes 9.6 % (0.0-10.0); %Neutrophils 44.9 % (42.0-75.0); Hemoglobin 13.1 g/dL (14.0-18.0); Mean Corpuscular HGB CONC 32.4 g/dL (32.0-36.0); Mean Corpuscular Hemoglobin 30.6 pg (27.0-31.0); Mean Corpuscular Volume 94.3 fl (80.0-94.0); Mean Platelet Volume 7.3 fL (7.4-10.4); Platelet Count 142 thou/uL (130-400); RBC Distribution Width 17.2 % (11.5-14.5); Red Blood Cell (RBC) Count 4.28 mill/uL (4.70-6.10); White Blood Cell (WBC) Count 4.1 thou/uL (4.8-10.8)
[2017-09-26 08:41] LABS: Anion Gap 15 mmol/L (10-20); BUN (Urea Nitrogen) 20 mg/dL (8.4-25.7); Calc. Creatinine Clearance 41 mL/min (70-130); Calcium 8.6 mg/dL (7.8-10.44); Carbon Dioxide 31 mmol/L (23-31); Chloride 96 mmol/L (98-107); Estimated GFR-MDRD 51; Glucose 94 mg/dL (83-110); Potassium 3.5 mmol/L (3.5-5.1); Sodium 138 mmol/L (136-145)
[2017-09-26] MEDS: Rosuvastatin 20 MG TAB PO SCH (09:19)
[2017-09-26] MEDS: Aspirin 81 mg Enteric Coated Tablet PO SCH (09:20)
[2017-09-26] MEDS: Tamsulosin HCl 0.4 MG CAP PO SCH (09:20)
[2017-09-26] MEDS: Oseltamivir 75 MG CAP PO SCH ×2 (09:20→21:15)
[2017-09-26] MEDS: Carvedilol 3.125 MG TAB PO SCH ×2 (09:20→21:15)
[2017-09-26] MEDS: Multivitamin W/ Minerals 1 TAB PO SCH (09:20)
[2017-09-26] MEDS: Furosemide 40 MG TAB PO SCH (09:20)
[2017-09-26] MEDS: Ferrous Sulfate 325 MG TAB PO SCH (09:20)
[2017-09-26] MEDS: Enoxaparin Sodium 40 MG/0.4 ML SYRINGE SC SCH (09:21)
[2017-09-26] MEDS: Sodium Chloride 0.9% 1,000 ML IV SCH ×2 (10:21→21:15)
[2017-09-26] MEDS: Ondansetron ODT 4 MG TAB PO PRN (11:39)
--- NOTE | 2017-09-26 13:13 | CT ---
CT OF ABDOMEN AND PELVIS: Date: 09/26/17 COMPARISON: 06/02/17. HISTORY: Nausea and vomiting. TECHNIQUE: Serial axial CT imaging obtained at 5 mm intervals from lung bases through pubic symphysis with intra venous and oral contrast. Coronal reformatted imaging obtained. FINDINGS: Incompletely imaged 3 lead AICD present. Trace bilateral pleural effusions are noted, left larger than right, decreased in size when compared to the 06/02/17 CT exam. No free intraperitoneal air noted. There is a Shah catheter in the urinary bladder. There are splenic granulomata noted. There is a stable, nonspecific hypodense lesion in the right lobe of the liver on image 15 measuring 1.0 cm, unchanged when compared to studies dating back to 05/27/17. The pancreas appears grossly unremarkable, as do bilateral adrenal glands. The right kidney demonstra sharan no acute finding. There is a stable area of cortical thinning and hypoenhancement involving the l ower pole of the right kidney, unchanged since 05/27/17, suggesting a history of prior renal infarcti ons. The left kidney is atrophic and demonstrates diffuse cortical thinning, as well as slight hypoenhance ment, similar when compared to prior imaging. There is a lobulated, heterogeneous soft tissue mass emanating from the superior pole of the right ki dney measuring 4.0 cm in AP dimension, similar when compared to the 05/27/17 exam, highly suspicious for renal cell carcinoma. There is mild nonspecific increased density in the presacral space, improved since prior imaging. There is no evidence for bowel inflammatory change or bowel obstruction. There is mild nodularity along the posterior aspect of the right paracolic gutter on image 38, signif icance uncertain. There is a subtle area of nodularity medial to the adrenal gland on the left, which may signify mildly enlarged node measuring in the 7.0 mm range, best seen on image 14. There is mild nonspecific wall thickening versus underdistention of the cecum and proximal ascending colon. There is extensive atherosclerotic calcification of the abdominal aorta and its branches, as well as the arterial structures of the pelvis with areas of hemodynamically significant stenosis suspected wi thin bilateral internal and external iliac arteries. Wall thickening in the region of the gastric antrum, especially anteriorly, may represent residual th ickening on the basis of peritoneal/omental malignancy. Osseous structures demonstrate a stable sclerotic lesion within the posterior aspect of the iliac bon e on the right on image 53 measuring 1.5 cm. There is multilevel lower lumbar spine facet hypertrophi c change. The bones appear demineralized. IMPRESSION: 1. Exophytic heterogeneous lesion emanating from upper pole of left kidney, evidence of renal cell c arcinoma. Areas of subtle nodularity noted in the right paracolic gutter and the left upper quadrant, as well as within the mesentery medial to the left adrenal gland. These findings, in addition to are as of mild antral wall thickening and colonic wall thickening may significant change associated with peritoneal malignancy. These findings have improved significantly since 06/02/17. 2. No evidence for small bowel obstruction or free intraperitoneal air. POS: MOOK
[2017-09-26] MEDS: cefTRIAXone\\ROCEPHIN 1 GM, Syringe 0.4 ML in Sterile Water 9.6 ML SLOW IVP SCH (21:16)
[2017-09-27] MEDS: Sodium Chloride 0.9% 1,000 ML IV SCH (05:00)
--- NOTE | 2017-09-27 06:48 | PDOC.FM ---
- Subjective Subjective: Pt seen at bedside in NAD. ADELE overnight. Pt notes he feels much better. No further episodes of vomiting since yesterday afternoon. Tolerating PO well. Pt denies CP, SOB, NVD, abd pain. at bedside and states he looks much better as well. - Objective MAR Reviewed: Yes Vital Signs & Weight: Vital Signs (12 hours) Temp Pulse Resp BP Pulse Ox 09/26/17 23:28 97.2 F L 79 12 117/55 L 09/26/17 20:00 97.2 F L 79 12 92 L 09/26/17 19:14 80 12 92 L Weight Weight 61.689 kg I&O: 09/25/17 09/26/17 09/27/17 06:59 06:59 06:59 Intake Total 6606 245 2710 Output Total 2250 2075 1450 Balance -970 -1475 1480 Result Diagrams: 09/26/17 08:10 09/26/17 08:10 <Manuel Schwarz - Last Filed: 09/27/17 09:02> - Objective Vital Signs & Weight: Vital Signs (12 hours) Temp Pulse Resp BP Pulse Ox 09/27/17 07:18 72 16 95 09/26/17 23:28 97.2 F L 79 12 117/55 L Weight Weight 61.689 kg I&O: 09/26/17 09/27/17 09/28/17 06:59 06:59 06:59 Intake Total 600 2930 Output Total 2075 1450 Balance -1475 1480 Result Diagrams: 09/26/17 08:10 09/26/17 08:10 <Nelia Diaz - Last Filed: 09/27/17 11:27> Phys Exam - Physical Examination Constitutional: NAD HEENT: sclera anicteric poor dentition Respiratory: no wheezing, no rales Cardiovascular: RRR, no significant murmur Gastrointestinal: soft, non-tender, no distention, positive bowel sounds Musculoskeletal: no edema, pulses present Neurological: non-focal, moves all 4 limbs Psychiatric: normal affect, A&O x 3 Skin: cap refill <2 seconds <Manuel Schwarz - Last Filed: 09/27/17 09:02> Dx/Plan (1) Influenza Code(s): J11.1 - FLU DUE TO UNIDENTIFIED INFLUENZA VIRUS W OTH RESP MANIFEST Status: Acute (2) Urinary retention due to benign prostatic hyperplasia Code(s): N40.1 - BENIGN PROSTATIC HYPERPLASIA WITH LOWER URINARY TRACT SYMP; R33.8 - OTHER RETENTION OF URINE Status: Chronic (3) CKD (chronic kidney disease) stage 3, GFR 30-59 ml/min Status: Chronic (4) COPD (chronic obstructive pulmonary disease) Status: Chronic (5) Lymphoma in remission Code(s): C85.90 - NON-HODGKIN LYMPHOMA, UNSPECIFIED, UNSPECIFIED SITE Status: Chronic (6) Non-ischemic cardiomyopathy Code(s): I42.8 - OTHER CARDIOMYOPATHIES Status: Chronic (7) CAD (coronary artery disease) Code(s): I25.10 - ATHSCL HEART DISEASE OF [place] CORONARY ARTERY W/O ANG PCTRS Status: Chronic - Plan Plan: 1. Nausea and Vomiting - Resolved, likely medication SE - No evidence of acute process or SBO on CT abd/pel - Pt continues to tolerated PO well 2. Presumed Influenza - diagnosed with influenza B - Tamiflu completed - Afebrile over last 24 hrs 3. Asymptomatic bacteriuria - Rocephin Day 5. UCx grew pansensitive klebsellia - Indwelling catheter for urinary retention from BPH since May 2017 - Likely chronic colonization, will discontinue rocephin after 5th dose today - Pt to f/u with urologist outpatient 4. COPD - Continue with home medications - Duoneb treatments PRN for SOB, cough, wheezing - Keep spO2 between 88 and 92% 5. BPH with chronic indwelling catheter since May 2017 - Sees Dr. Sheth monthly, conrad changed at that time - Continue flomax 5. sCHF - EF 30-35% on Echo 05/2017 - Monitor fluid status - s/p AICD - Daily weights - Strict I&O's - Fluid restriction diet Disposition: Pt stable and doing well, much improved. NV symptoms resolved with no acute findings on CT abd. Pt subjectively and objectively improved, stable for discharge home today. F/u with PCP within 1 week. <Manuel Schwarz - Last Filed: 09/27/17 09:02> Attending Addendum - Attending Addendum Date/Time: 09/27/17 3407 I personally evaluated the patient and discussed the management with Dr. [] I agree with the History, Examination, Assessment and Plan documented above with any addition or exceptions noted below. Patients O2 sats 94% RA this morning. Stable for d/c home. <Nelia Diaz - Last Filed: 09/27/17 11:27>
[2017-09-27] MEDS: Mometasone/Formoterol 120 PUFF INHALER INH SCH (07:18)
[2017-09-27] MEDS: Tamsulosin HCl 0.4 MG CAP PO SCH (09:48)
[2017-09-27] MEDS: Enoxaparin Sodium 40 MG/0.4 ML SYRINGE SC SCH (09:48)
[2017-09-27] MEDS: Oseltamivir 75 MG CAP PO SCH (09:49)
[2017-09-27] MEDS: Aspirin 81 mg Enteric Coated Tablet PO SCH (09:49)
[2017-09-27] MEDS: Furosemide 40 MG TAB PO SCH (09:49)
[2017-09-27] MEDS: Rosuvastatin 20 MG TAB PO SCH (09:49)
[2017-09-27] MEDS: Ferrous Sulfate 325 MG TAB PO SCH (09:49)
[2017-09-27] MEDS: Carvedilol 3.125 MG TAB PO SCH (09:50)
[2017-09-27] MEDS: Multivitamin W/ Minerals 1 TAB PO SCH (09:50)
[2017-09-27 12:46] VITALS: TEMP 97.7
[2017-09-27 13:14] VITALS: BP 123/67
--- NOTE | 2017-09-28 13:26 | DIS-2 ---
ADMISSION DATE: 09/23/2017 DISCHARGE DATE: 09/27/2017 ADMITTING RESIDENT: Lola Barry DO DISCHARGING RESIDENT: Manuel Schwarz M.D. ADMITTING ATTENDING: Kathy Carrington M.D. DISCHARGE ATTENDING: Nelia Diaz M.D. CONSULTATIONS: Dr. José Antonio Sheth, Urology. PROCEDURES: None. IMAGIN. Chest x-ray 09/22/2017, interstitial prominence, pulmonary hyperinflation suggestive of COPD. No lobar consolidation or hilar edema. 2. CT abdomen and pelvis with contrast on 09/26/2017, exophytic heterogeneous lesion receding from upper pole of the left kidney, evidence of renal cell carcinoma have improved significantly since previous and on 06/02/2017, no evidence of small-bowel obstruction or free intraperitoneal air. PERTINENT LABORATORY FINDINGS: Urinalysis significant for moderate blood, positive nitrate, moderate leukocyte esterase, 7-10 red blood cells, 11-20 white blood cells and 2+ bacteria. MICROBIOLOGY: 1. Influenza swab negative 2. Urine culture positive for pansensitive Klebsiella pneumoniae. PRIMARY DIAGNOSES: 1. Sepsis (resolved) secondary to presumed influenza. 2. Urinary tract infection versus chronic colonization. 3. Presumed chronic obstructive pulmonary disease exacerbation secondary to influenza. SECONDARY DIAGNOSES: 1. Chronic kidney disease stage 3. 2. Lymphoma in remission. 3. Nonischemic cardiomyopathy. 4. Coronary artery disease, none. 5. Benign prostatic hypertrophy. 6. 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 7. Suspected renal cell carcinoma. MEDICATIONS. 1. Zofran 4 mg ODT q.6 hours p.r.n. 2. Multivitamin daily. 3. Albuterol inhaler 1 puff as needed. 4. Aspirin 81 mg daily. 5. Symbicort 160/4.5 one puff b.i.d. 6. Coreg 3.125 mg b.i.d. 7. Protonix 40 mg daily. 8. Crestor 40 mg daily. 9. Flomax 0.4 mg daily. 10. Iron sulfate 325 mg daily. 11. Lasix 40 mg daily. 12. [place] 10/325 mg one tab q.4 hours p.r.n. DISCONTINUED MEDICATIONS: None. HISTORY OF PRESENT ILLNESS AND HOSPITAL COURSE: Mr. Cassidy is a pleasant 71- year-old male who presented to the ER with a 1 day history of headache, body aches, fatigue, chills, and weakness. His was seen in the ER on the previous day and diagnosed with influenza B. On initial presentation in the ER , he was found to be tachypneic, hypoxic, tachycardic, and febrile up to 101 degrees Fahrenheit. He is admitted for sepsis secondary to presumed influenza, started on Tamiflu. Initially, his antihypertensive medications were held due to low blood pressure. He did not require BiPAP or intubation during the stay. Additionally, he was found to have urinalysis concerning for urinary tract infection. He has indwelling Shah catheter due to chronic urinary retention. He also has a history of Klebsiella UTIs. Dr. Sheth was consulted and recommended waiting for culture speciation and treating accordingly. He was initially started on Rocephin and received a total of 5 days completing the treatment for his Klebsiella urinary tract infection. On 09/25, he developed nausea and vomiting that persisted through 09/26/2017. CT abdomen was performed , given his history of small bowel resection. No free fluid or bowel obstruction was noted. Suspected that his nausea and vomiting was due to medication side effect. He was slowly weaned off oxygen throughout his hospital stay and did not require oxygen on the day of discharge. Decision was made to send the patient home. Vital signs at time of discharge are within normal limits. Additionally, the patient completed a 5-day course of steroids while here in the hospital for presumed COPD exacerbation due to influenza. He is stable at time of discharge. DISPOSITION: Stable. FOLLOWUP INSTRUCTIONS: 1. Location: Home. 2. Diet: Heart healthy, low sodium. 3. Activity: As tolerated. 4. Patient is to follow up with his primary care physician within 1 week of discharge and with Dr. Sheth within 10 days of discharge. Less than 30 minutes spent on discharge. TOMMIED
== END 2017-09-27 13:16 | disposition home or self-care (01) | DRG 871 ==
LOC: SCSER 20:46 → IMCU/EMU 22:25 → 2NO 09-24 13:38
PROVIDERS: ADMIT Student in an Organized Health Care Education/Training Program; ATTEND Student in an Organized Health Care Education/Training Program
DX: A41.9 Sepsis, unspecified organism (principal); J96.01 Acute respiratory failure with hypoxia; C85.90 Non-Hodgkin lymphoma, unspecified, unspecified site; I42.8 Other cardiomyopathies; C64.2 Malignant neoplasm of left kidney, except renal pelvis; J44.1 Chronic obstructive pulmonary disease with (acute) exacerbation; I50.22 Chronic systolic (congestive) heart failure; J11.1 Influenza due to unidentified influenza virus with other respiratory manifestations; N40.1 Benign prostatic hyperplasia with lower urinary tract symptoms; R33.8 Other retention of urine; I25.10 Atherosclerotic heart disease of native coronary artery without angina pectoris; Z95.810 Presence of automatic (implantable) cardiac defibrillator; R82.71 Bacteriuria; Z85.89 Personal history of malignant neoplasm of other organs and systems; F17.210 Nicotine dependence, cigarettes, uncomplicated; N30.90 Cystitis, unspecified without hematuria; B96.1 Klebsiella pneumoniae [K. pneumoniae] as the cause of diseases classified elsewhere; N18.3 Chronic kidney disease, stage 3 (moderate)
CPT/HCPCS: 36415; 71045; 74177; 80048; 80053; 81003; 81015; 82553; 83605; 84484; 85007; 85025; 85027; 87077; 87086; 87186; 87804; 93005; 94664; 96361; 96365; 96375; A4216; G8978-GP-CH; G8979-GP-CH; G8980-GP-CH; G8987-GO-CI; G8988-GO-CI; G8989-GO-CI; J0696; J1650; J2270; J2405; J2930; J7620; Q0162

== ENCOUNTER 2020-07-19 11:27 | Outpatient (CLI) | payer MEDICARE ==
[2020-07-19 21:36] LABS: SARS-CoV-2 MS2 Positive; SARS-CoV-2 N Gene Negative; SARS-CoV-2 S Gene Negative; SARS-CoV-2 by NAA Not Detected (NotDetected); SARS-CoV-2 orf1ab Negative
== END 2020-07-19 11:28 | disposition home or self-care (01) ==
LOC: LABBT 11:27
PROVIDERS: ATTEND Internal Medicine Pulmonary Disease
DX: Z01.812 Encounter for preprocedural laboratory examination (principal); Z20.828 Contact with and (suspected) exposure to other viral communicable diseases; R22.2 Localized swelling, mass and lump, trunk; M79.604 Pain in right leg
CPT/HCPCS: 87635; U0003

== ENCOUNTER 2020-07-23 08:21 | Day surgery (SDC) | payer MEDICARE ==
[2020-07-22 12:15] VITALS: BMI 17.5
[2020-07-23 10:08] LABS: #Basophils 0.1 thou/uL (0.0-0.2); #Eosinphils 0.4 thou/uL (0.0-0.7); #Lymphocytes 1.7 thou/uL (1.20-3.40); #Monocytes 0.7 thou/uL (0.11-0.59); #Neutrophils 7.8 thou/uL (1.40-6.50); %Basophils 0.7 % (0.0-1.0); %Eosinophils 3.6 % (0.0-10.0); %Lymphocytes 15.8 % (21.0-51.0); %Monocytes 6.6 % (0.0-10.0); %Neutrophils 73.2 % (42.0-75.0); Hemoglobin 11.5 g/dL (14.0-18.0); Mean Corpuscular HGB CONC 32.2 g/dL (32.0-36.0); Mean Corpuscular Hemoglobin 30.5 pg (27.0-31.0); Mean Corpuscular Volume 94.7 fL (78.0-98.0); Mean Platelet Volume 6.3 fL (7.4-10.4); Platelet Count 352 thou/uL (130-400); Red Blood Cell (RBC) Count 3.78 mill/uL (4.70-6.10); White Blood Cell (WBC) Count 10.6 thou/uL (4.8-10.8)
[2020-07-23 10:14] LABS: INR-International Normal Ratio 1.1; PTT 34.5 sec (22.9-36.1); Prothrombin Time 14.6 sec (12.0-14.7)
--- NOTE | 2020-07-23 11:26 | RAD ---
Chest 2 views inspiratory expiratory HISTORY: Lung mass. Biopsy. FINDINGS: Lungs are well-inflated. Mass of the right upper lobe and right second rib again demonstrat ed. No evidence of pneumothorax.
[2020-07-23 11:32] VITALS: BP 162/83; TEMP 98.6
--- NOTE | 2020-07-23 11:47 | CT ---
CT-guided right lung mass biopsy HISTORY: Right lung mass. Renal mass. FINDINGS: After explaining the procedure and answering all questions, limited CT imaging of the chest was performed. Sterile technique, buffered local anesthesia, CT guidance, and an anterior approach were used to care fully advance a 17-gauge trocar needle into the right anterior chest wall/lung mass. Position confirmed with CT imaging. A total of 2 18-gauge core specimens were obtained and eventually submitted to pathology for evaluati on. Small Gelfoam pledgets were carefully inserted into the trocar and advanced into the biopsy site. Needle was removed. No evidence of pneumothorax. Patient tolerated the procedure well and was returne d to the holding area in good condition for further monitoring. IMPRESSION : Technically successful CT-guided biopsy right lung mass. Pathology is pending.
--- NOTE | 2020-07-23 13:08 | RAD ---
Chest 2 views inspiratory expiratory HISTORY: Lung mass. Biopsy. FINDINGS: Right upper lobe lung/chest wall mass is again demonstrated. Lungs remain well-inflated. No evidence of pneumothorax. Patient will be cleared radiographically for discharge.
== END 2020-07-23 13:15 | disposition home or self-care (01) ==
LOC: CT 08:21
PROVIDERS: ATTEND Internal Medicine Pulmonary Disease
PROC: 0BBC3ZX Excision of Right Upper Lung Lobe, Percutaneous Approach, Diagnostic (ICD-10-PCS; principal; 2020-07-23)
DX: C34.11 Malignant neoplasm of upper lobe, right bronchus or lung (principal); N28.89 Other specified disorders of kidney and ureter; F17.210 Nicotine dependence, cigarettes, uncomplicated; I50.9 Heart failure, unspecified; E78.00 Pure hypercholesterolemia, unspecified; K21.9 Gastro-esophageal reflux disease without esophagitis; J44.9 Chronic obstructive pulmonary disease, unspecified; I42.9 Cardiomyopathy, unspecified; I48.91 Unspecified atrial fibrillation; N40.0 Benign prostatic hyperplasia without lower urinary tract symptoms; Z85.72 Personal history of non-Hodgkin lymphomas; Z79.82 Long term (current) use of aspirin; Z79.899 Other long term (current) drug therapy; Z95.810 Presence of automatic (implantable) cardiac defibrillator
CPT/HCPCS: 32405; 71045; 77012; 85025; 85610; 85730; 88305; 88341; 88342

== ENCOUNTER 2020-08-13 08:26 | Outpatient (CLI) | payer MEDICARE ==
--- NOTE | 2020-08-13 10:53 | PET ---
Radionucleotide PET scan with CT attenuation correction HISTORY: Right upper lobe lung cancer. Initial staging. Known left renal mass. FINDINGS: Markedly increased radiotracer uptake is associated with the irregular, heterogeneous right upper lobe mass. Max SUV 21.5. At the right suprahilar level, an ill-defined small focus of increased activity shows max SUV 2.8. On the noncontrast CT chest exams, a lymph node separate from the adjacent hilar vessels cannot be appreciated. (Max SUV of the left hilum is 2.1) In the area of subtle ill-defined parenchymal infiltrate at the anterior-inferior aspect of the right middle lobe, max SUV 2.0. Markedly increased uptake associated with the heterogeneous slightly hyperdense mass at the superior pole of the left kidney shows max SUV 11.1. Physiologic uptake of radiotracer within the enteric system and along each urinary tract. IMPRESSION : Right upper lobe carcinoma. Borderline hypermetabolic/pathologic uptake at the right suprahilar level as detailed above. Please c onsider dedicated CT chest with IV contrast for more detailed morphologic characterization of right hilar lymph nodes. Renal cell carcinoma left kidney superior pole.
--- NOTE | 2020-08-13 11:52 | CT ---
Exam: Head CT with and without contrast HISTORY: Lung cancer. Staging. Evaluate for possible metastases. FINDINGS: Noncontrast head CT: No parenchymal hemorrhage No extra-axial hematoma No midline shift Basilar cisterns are patent Brain volume is age-appropriate Dugan-white matter differentiation preserved No hydrocephalus Calvarium is intact. Adequate aeration of the sinuses and mastoid air cells Postcontrast head CT: No pathologic enhancement of the brain parenchyma. IMPRESSION: 1. No acute intracranial process 2. Minimal small vessel ischemic changes white matter 3. No pathologic enhancement of the brain parenchyma.
[2020-08-13] MEDS ORDERED: Iopamidol 370 76% 100 ML VIAL ONE (13:49)
== END 2020-08-13 08:27 | disposition home or self-care (01) ==
LOC: PET 08:26 → CT 08:27
PROVIDERS: ATTEND Internal Medicine Medical Oncology
DX: C34.11 Malignant neoplasm of upper lobe, right bronchus or lung (principal)
CPT/HCPCS: 70470; 78815; 82565; A9552

== ENCOUNTER 2020-08-15 15:21 | Observation (INO) | payer MEDICARE ==
--- NOTE | 2020-08-15 16:12 | RAD ---
EXAM: Two views chest PROVIDED CLINICAL HISTORY: Pacemaker problems. Right ventricular lead reportedly not functioning properly. History of lung cance r. COMPARISON: 07/23/2020 FINDINGS: Triple lead left subclavian AICD device remains unchanged in position. Cardiac silhouette is within n ormal limits. Large right upper lobe mass is again seen. Minimal scarring is present in each lung apex. Lungs are otherwise clear without consolidation or pleural fluid. There is eventration of the p osterior aspect of the left hemidiaphragm. No other interval change. IMPRESSION: 1. Large right upper lobe mass again seen. 2. No acute cardiopulmonary process..
[2020-08-15 16:35] LABS: #Basophils 0.1 thou/uL (0.0-0.2); #Eosinphils 0.5 thou/uL (0.0-0.7); #Lymphocytes 1.4 thou/uL (1.20-3.40); #Monocytes 0.9 thou/uL (0.11-0.59); #Neutrophils 5.7 thou/uL (1.40-6.50); %Basophils 0.7 % (0.0-1.0); %Eosinophils 5.9 % (0.0-10.0); %Lymphocytes 16.5 % (21.0-51.0); %Monocytes 10.7 % (0.0-10.0); %Neutrophils 66.1 % (42.0-75.0); Hemoglobin 11.6 g/dL (14.0-18.0); Mean Corpuscular HGB CONC 31.8 g/dL (32.0-36.0); Mean Corpuscular Hemoglobin 29.9 pg (27.0-31.0); Mean Corpuscular Volume 93.9 fL (78.0-98.0); Mean Platelet Volume 6.5 fL (7.4-10.4); Platelet Count 233 thou/uL (130-400); RBC Distribution Width 13.5 % (11.5-14.5); White Blood Cell (WBC) Count 8.7 thou/uL (4.8-10.8)
[2020-08-15 16:42] LABS: INR-International Normal Ratio 1.1; PTT 32.2 sec (22.9-36.1); Prothrombin Time 14.4 sec (12.0-14.7)
[2020-08-15 16:56] LABS: ALT (SGPT) 8 U/L (8-55); AST (SGOT) 25 U/L (5-34); Albumin 3.5 g/dL (3.4-4.8); Alkaline Phosphatase 65 U/L (40-110); Anion Gap 14 mmol/L (10-20); BUN (Urea Nitrogen) 28 mg/dL (8.4-25.7); Bilirubin, Total 0.2 mg/dL (0.2-1.2); Calc. Creatinine Clearance 0 mL/min (70-130); Calcium 8.8 mg/dL (7.8-10.44); Carbon Dioxide 32 mmol/L (23-31); Chloride 98 mmol/L (98-107); Glucose 170 mg/dL (83-110); Potassium 3.2 mmol/L (3.5-5.1); Protein, Total 7.5 g/dL (5.8-8.1); Sodium 141 mmol/L (136-145)
[2020-08-15 17:21] LABS: CKMB 1.7 ng/mL (0-6.6)
[2020-08-15] MEDS ORDERED: Aspirin Chewable 81 MG TAB ONE (17:32)
[2020-08-15] MEDS ORDERED: Potassium Chloride 20 MEQ TAB ONE (17:32)
[2020-08-15 20:16] LABS: Troponin I 0.024 ng/mL (< 0.028)
[2020-08-15] MEDS ORDERED: Senokot S 8.6-50 MG TAB PO PRN (20:38)
[2020-08-15] MEDS ORDERED: Bisacodyl 10 MG SUPP PR PRN (20:38)
[2020-08-15] MEDS ORDERED: Calcium Carbonate 500 MG ChewTAB PO PRN (20:38)
[2020-08-15] MEDS ORDERED: Bisacodyl 5 MG TAB PO PRN (20:38)
[2020-08-15] MEDS ORDERED: Acetaminophen 650 MG Suppository PR PRN (20:38)
[2020-08-15] MEDS ORDERED: Acetaminophen 325 MG TAB PO PRN (20:38)
[2020-08-15] MEDS ORDERED: Sodium Chloride 0.9% 1,000 ML IV SCH (20:45)
[2020-08-15] MEDS ORDERED: Lactated Ringer's 1,000 ML IV SCH (20:45)
[2020-08-15] MEDS ORDERED: Heparin 5,000 UNITS/ML VIAL SC SCH (21:00)
[2020-08-15 21:25] VITALS: BMI 15.7
--- NOTE | 2020-08-15 21:33 | PDOC.FPRHP ---
- History of Present Illness Chief Complaint: Defibrillator problem History of Present Illness: Patient is a 74 yo M who presents to the ED per Dr. Young's office recommendations. Patient was eating breakfast this AM when his AICD started beeping. He was called by their office who recommended he come to the ER and get admitted for AICD repair. Patient is otherwise feeling well. He is chronically SOB 2/2 lung cancer in R lung. ED Course: 40 mEq K+, 500 mL NS bolus, 325 mg ASA - Allergies/Adverse Reactions Allergies Allergy/AdvReac Type Severity Reaction Status Date / Time No Known Drug Allergies Allergy Verified 07/23/20 13:46 - Home Medications Medication Instructions Recorded Confirmed Type Multivitamin W/ Minerals 1 tab PO DAILY 12/22/14 07/23/20 History [Theragran M] Aspirin [Aspirin EC] 81 mg PO DAILY #30 tablet. 06/14/17 07/23/20 Rx Carvedilol [Coreg] 3.125 mg PO BID #60 tab 06/14/17 07/23/20 Rx Pantoprazole [Protonix] 40 mg PO DAILY #30 tab 06/14/17 07/23/20 Rx Rosuvastatin Calcium [Crestor] 40 mg PO DAILY #30 tablet 06/14/17 07/23/20 Rx Tamsulosin HCl [Flomax] 0.4 mg PO DAILY #30 cap 06/14/17 07/23/20 Rx Ferrous Sulfate [Feosol] 325 mg PO DAILY 09/23/17 07/23/20 History Furosemide [Lasix] 40 mg PO DAILY 09/23/17 07/23/20 History Albuterol Sulfate [Albuterol 2.5 mg NEB Q6H PRN 07/22/20 07/23/20 History Sulfate Neb] Potassium Chloride 10 meq PO DAILY 07/22/20 07/23/20 History - History PMHx: CHF, HLD, GERD, COPD, Lymphoma 2000, renal cell carcinoma 2017, RUL lung cancer, neurogenic bladder-chronic self cath PSHx: Ex Lap for bowel obstruction, appendectomy, multiple orthopedic surgeries on hands, AICD placement FHx: noncontributory Social: >100 pack year smoking history (quit last week), denies etoh/other drug use - Review of Systems General: denies: fever/chills, weight/appetite/sleep changes Eyes: denies: eye pain, vision changes ENT: denies: nasal congestion, rhinorrhea Respiratory: reports: cough, shortness of breath. denies: congestion Cardiovascular: denies: chest pain, palpitation Gastrointestinal: denies: nausea, vomiting, diarrhea, constipation Genitourinary: denies: incontinence, dysuria Skin: denies: rashes, lesions Musculoskeletal: denies: pain, tenderness Neurological: denies: numbness, weakness - Vital signs BP: 131/68 HR: 75 RR: 19 Tmax: 98.0 Pox: 98% on RA Wt: 49 kg - Physical Exam Constitutional: NAD, awake, alert and oriented HEENT: normocephalic and atraumatic, PERRLA, grossly normal vision, grossly normal hearing Neck: supple, FROM Chest: no-tender to palpation -Chest: Bruising from biopsy per patient Heart: RRR, normal S1/S2, no murmurs/rubs/gallops Lungs: no respiratory distress, no rales/rhonchi, no wheezing -Lungs: Poor air movement on R side Abdomen: soft, non-tender, bowel sounds present Musculoskeletal: normal structure, normal tone Neurological: no focal deficit, CN II-XII intact Skin: good turgor, capillary refill <2 seconds Heme/Lymphatic: no unusual bruising or bleeding, no purpura Psychiatric: normal mood and affect, good judgment and insight, intact recent and remote memory FMR H&P: Results - Labs Result Diagrams: 08/15/20 16:20 08/15/20 16:20 Lab results: WBC 8.7 thou/uL (4.8-10.8) 08/15/20 16:20 Hgb 11.6 g/dL (14.0-18.0) L 08/15/20 16:20 Hct 36.6 % (42.0-52.0) L 08/15/20 16:20 MCV 93.9 fL (78.0-98.0) 08/15/20 16:20 Plt Count 233 thou/uL (130-400) 08/15/20 16:20 Neutrophils % 66.1 % (42.0-75.0) 08/15/20 16:20 Sodium 141 mmol/L (136-145) 08/15/20 16:20 Potassium 3.2 mmol/L (3.5-5.1) L 08/15/20 16:20 Chloride 98 mmol/L (98-107) 08/15/20 16:20 Carbon Dioxide 32 mmol/L (23-31) H 08/15/20 16:20 BUN 28 mg/dL (8.4-25.7) H 08/15/20 16:20 Creatinine 1.77 mg/dL (0.7-1.3) H 08/15/20 16:20 Glucose 170 mg/dL (83-110) H 08/15/20 16:20 Calcium 8.8 mg/dL (7.8-10.44) 08/15/20 16:20 Total Bilirubin 0.2 mg/dL (0.2-1.2) 08/15/20 16:20 AST 25 U/L (5-34) 08/15/20 16:20 ALT 8 U/L (8-55) 08/15/20 16:20 Alkaline Phosphatase 65 U/L (40-110) 08/15/20 16:20 CK-MB (CK-2) 1.7 ng/mL (0-6.6) 08/15/20 16:20 B-Natriuretic Peptide 255.4 pg/mL (0-100) H 08/15/20 16:26 Serum Total Protein 7.5 g/dL (5.8-8.1) 08/15/20 16:20 Albumin 3.5 g/dL (3.4-4.8) 08/15/20 16:20 - EKG Interpretation EKG: Paced, 73 BPM - Radiology Interpretation Chest x-ray Status: report reviewed by me Additional comment: Stable RUL mass, AICD, hyperinflation FMR H&P: A/P - Plan Pacemaker/AICD dysfunction - Dr. Young aware, repair tomorrow - Admit to tele for cardiac monitoring overnight PRISCA - SCr 1.77, baseline appears to be 1.4 - Gentle IVF, monitor with AM BMP COPD - Aware, continue home meds Lung cancer - Aware, receiving chemo and radiation in [place] BPH Neurogenic Bladder - aware, patient can self cath PRN Code: Full GI ppx: home protonix DVT ppx: SCD Diet: HH, NPO @ 0000 PCP: Juliana Dispo: Admit to tele obs, los likely < 48 hrs FMR H&P: Upper Level - Plan Date/Time: 08/15/202132 I, Heike Ren DO, PGY-2, have evaluated this patient and agree with findings/plan as outlined by journalism internship resident. Pertinent changes/additions are listed here. Patient is a 74 yo male who presents from Dr. Hernandes office after having an appointment there this afternoon for a malfunctioning pacemaker. Patient had an AICD and pacemaker placed by Dr. Young at [facility] in 2018. Earlier in the day he states his pacemaker kept beeping so he called Dr. Hernandes office. At the appointment it was determined that one of the pacemakers leads was broken and so Dr. Young is planning on taking patient to the OR tomorrow (08/16) for repair. Patient feels fine and denies any complaints. Of note patient has a history of renal cell carcinoma on left kidney and lymphoma in remission. He also has active lung cancer for which he is currently receiving chemotherapy and radiation that is managed by Dr. Grayson. Patient also states that he will not use a conrad, has been self-cathing for past year instead. ROS: Denies fever, chills, fatigue, headache, dizziness, cough, congestion, SOB, chest pain, palpitations, abdominal pain, nausea, vomiting, diarrhea, constipation, dysuria, mood changes. PE: NC/AT. EOMI. Sensation intact. Motor strength 5/5 in extremities. No respira tory distress, CTAB. RRR, no murmurs. Abdomen soft, nontender, BS+. No edema. A&O x 3. A/P: #Pacemaker Malfunction -consult Piero De La Rosa to take patient to OR to fix broken lead in AM on 08/16/20 -place on telemetry for monitoring #PRISCA -Cr 1.77, with baseline of 1.4 -s/p 1 L bolus in ED, will continue mIVF given NPO status -monitor on AM labs -Chronic medical conditions as journalism internship plan above. Dispo: Admit to obs on telemetry unit. LOS <48 hours. Addendum - Attending - Attending Attestation Date/Time: 08/16/20 0011 I personally evaluated the patient and discussed the management with Dr. Ren/Abdullahi I agree with the History, Examination, Assessment and Plan documented above with any addition or exceptions noted below.
[2020-08-15] MEDS: Lactated Ringer's 1,000 ML IV SCH (22:06)
[2020-08-16 04:31] LABS: #Eosinphils 0.6 thou/uL (0.0-0.7); #Lymphocytes 1.9 thou/uL (1.20-3.40); #Monocytes 1.2 thou/uL (0.11-0.59); #Neutrophils 7.9 thou/uL (1.40-6.50); %Basophils 0.4 % (0.0-1.0); %Eosinophils 5.3 % (0.0-10.0); %Lymphocytes 16.2 % (21.0-51.0); %Monocytes 10.5 % (0.0-10.0); %Neutrophils 67.6 % (42.0-75.0); Hemoglobin 11.5 g/dL (14.0-18.0); Mean Corpuscular HGB CONC 32.2 g/dL (32.0-36.0); Mean Corpuscular Hemoglobin 30.2 pg (27.0-31.0); Mean Corpuscular Volume 93.7 fL (78.0-98.0); Mean Platelet Volume 6.5 fL (7.4-10.4); Platelet Count 247 thou/uL (130-400); RBC Distribution Width 13.5 % (11.5-14.5); Red Blood Cell (RBC) Count 3.81 mill/uL (4.70-6.10); White Blood Cell (WBC) Count 11.7 thou/uL (4.8-10.8)
[2020-08-16 04:52] LABS: Anion Gap 16 mmol/L (10-20); BUN (Urea Nitrogen) 22 mg/dL (8.4-25.7); Calc. Creatinine Clearance 32 mL/min (70-130); Carbon Dioxide 28 mmol/L (23-31); Chloride 101 mmol/L (98-107); Glucose 87 mg/dL (83-110); Potassium 3.4 mmol/L (3.5-5.1); Sodium 142 mmol/L (136-145)
[2020-08-16 05:52] LABS: SARS-CoV-2 PCR by NAA Not Detected (NotDetected)
--- NOTE | 2020-08-16 05:56 | PDOC.FM ---
- Subjective Subjective: Pt resting in bed this AM. No acute events overnight. No acute events on telemetry. AV paced with HR 75-80s all night. - Objective Vital Signs & Weight: Vital Signs (12 hours) Temp Pulse Resp BP Pulse Ox 08/16/20 03:45 97.7 F 83 17 143/68 H 94 L 08/15/20 20:19 97.7 F 75 18 140/64 96 Weight Weight 48.489 kg Result Diagrams: 08/16/20 03:48 08/16/20 03:48 Phys Exam - Physical Examination Constitutional: NAD HEENT: moist MMs Neck: supple Respiratory: no wheezing decreased breath sounds noted on R>>L, rhonchi noted in ULL Cardiovascular: RRR, no significant murmur, no rub Gastrointestinal: soft, non-tender, no distention, positive bowel sounds Musculoskeletal: pulses present Neurological: moves all 4 limbs Lymphatic: no nodes Psychiatric: normal affect, A&O x 3 Skin: normal turgor, cap refill <2 seconds Dx/Plan - Plan Plan: ##Pacemaker/AICD dysfunction - Admitted to telemetry, no acute events since admission - Dr. Young aware, patient will go back to OR this AM, NPO since midnight - Has not had any symptoms of CP/SOB ##PRISCA, most likely pre-renal - SCr 1.77 on admission - This AM Client Application Support Specialist 1.33 - Gentle IVF continued LR @ 75mL ##Active Lung cancer - Aware, receiving chemo and radiation in [place] for R lung mass - Patient's Onc is Dr. Grayson ##COPD - Aware, continue home meds ##BPH ##Neurogenic Bladder - aware, patient can self cath PRN Code: Full GI ppx: home protonix DVT ppx: SCD Diet: HH, NPO @ 0000 PCP: Juliana Dispo as of 08/16/20: Admit to tele obs. Dr. Young to repair pacemaker today. Will determine d/c status post-op. Addendum - Attending - Attending Attestation Date/Time: 08/16/20 1022 I personally evaluated the patient and discussed the management with Dr. Wilkinson I agree with the History, Examination, Assessment and Plan documented above with any addition or exceptions noted below. 74 yo male with hx of CV disease admitted for pacemaker malfunctioning. Patient doing well this morning. No acute events. Has plans to have RV lead replaced today. Will follow up after procedure. Likely home in AM. Rickey
[2020-08-16] MEDS: Carvedilol 3.125 MG TAB PO SCH ×2 (08:20→21:05)
[2020-08-16] MEDS: Furosemide 40 MG TAB PO SCH (08:20)
[2020-08-16] MEDS: Ferrous Sulfate 325 MG TAB PO SCH (08:20)
[2020-08-16] MEDS: HYDROcodone/Acetaminophen 5/325 mg Tablet PO SCH ×4 (08:21→21:06)
[2020-08-16] MEDS: Multivitamin W/ Minerals 1 TAB PO SCH (08:21)
[2020-08-16] MEDS: Potassium Chloride 10 MEQ TAB PO SCH (08:21)
[2020-08-16] MEDS: Rosuvastatin 20 MG TAB PO SCH (08:22)
[2020-08-16] MEDS ORDERED: HYDROcodone/Acetaminophen 5/325 mg Tablet PO SCH (09:00)
[2020-08-16] MEDS ORDERED: Non-Formulary Item 1 EACH (Rosuvastatin Calcium [Crestor] 40 MG Tablet) PO SCH (09:00)
[2020-08-16] MEDS ORDERED: Non-Formulary Item 1 EACH (Potassium Chloride [Potassium Chloride] 10 MEQ Tablet.Er) PO SCH (09:00)
[2020-08-16] MEDS ORDERED: Ondansetron PF 4 MG/2 ML Vial ONE ×2 (09:25→17:36)
[2020-08-16] MEDS ORDERED: PROPOFOL 200 MG/20 ML VIAL ONE (09:25)
[2020-08-16] MEDS ORDERED: Iopamidol 370 76% 50 ML VIAL FS ONE (10:25)
[2020-08-16] MEDS: Lactated Ringer's 1,000 ML IV SCH (12:57)
[2020-08-16] MEDS ORDERED: CEFAZOLIN 1 GM VIAL ONE (15:46)
[2020-08-16] MEDS ORDERED: Gentamicin 80 MG/2 ML VIAL ONE (15:46)
[2020-08-16] MEDS ORDERED: Ketamine 50 MG/ML (10ML VIAL) ONE (16:08)
[2020-08-16] MEDS ORDERED: Acetaminophen/Codeine 30-300mg Tablet PO PRN ×2 (19:30)
[2020-08-16] MEDS: Cephalexin 250 MG CAP PO SCH (21:06)
[2020-08-17] MEDS: HYDROcodone/Acetaminophen 5/325 mg Tablet PO SCH ×3 (00:29→09:18)
--- NOTE | 2020-08-17 05:54 | PDOC.FM ---
- Subjective Subjective: Pt resting comfortably in bed this AM. No acute events overnight. States that he is ready to go home today. Denies CP/SOB. No events on telemetry. - Objective Vital Signs & Weight: Vital Signs (12 hours) Temp Pulse Resp BP Pulse Ox 08/17/20 04:00 98.0 F 79 20 100/52 L 92 L 08/17/20 00:27 97.9 F 75 20 115/55 L 95 08/16/20 19:30 98.0 F 77 24 H 132/60 98 08/16/20 18:10 97.4 F L 82 19 140/71 95 Weight Admit Weight 48.489 kg Weight 48.489 kg I&O: 08/15/20 08/16/20 08/17/20 06:59 06:59 06:59 Intake Total 480 1115 Output Total 900 700 Balance -420 415 Result Diagrams: 08/16/20 03:48 08/16/20 03:48 Phys Exam - Physical Examination Constitutional: NAD on 2L NC in no respiratory distress HEENT: moist MMs Neck: supple poor inspiratory effort, no wheezing present, chest expansion L>>R Cardiovascular: RRR, no significant murmur, no rub Gastrointestinal: soft, non-tender, no distention, positive bowel sounds Musculoskeletal: pulses present Neurological: normal sensation, moves all 4 limbs Psychiatric: normal affect, A&O x 3 Skin: normal turgor Dx/Plan - Plan Plan: ##Pacemaker/AICD dysfunction - Admitted to telemetry, no acute events since admission - S/p repair with Dr. Young on 08/16 - Has not had any symptoms of CP/SOB ##PRISCA, most likely pre-renal - SCr 1.77 on admission--> improvement to Supervisor Ditching 1.33 seen - Gentle IVF continued LR @ 75mL ##Active Lung cancer - Aware, receiving chemo and radiation in [place] for R lung mass - Patient's Onc is Dr. Grayson ##COPD - Aware, continue home meds ##BPH ##Neurogenic Bladder - aware, patient can self cath PRN Code: Full GI ppx: home protonix DVT ppx: SCD Diet: HH PCP: Juliana Infante as of 08/17/20: Pt doing well post-op. Ready for d/c today. Will be sent ho ia on 6 day abx of Keflex per Dr. Young request. Addendum - Attending - Attending Attestation Date/Time: 08/17/20 4130 I personally evaluated the patient and discussed the management with Dr. Wilkinson. I agree with the History, Examination, Assessment and Plan documented above with any addition or exceptions noted below.
[2020-08-17 07:33] VITALS: TEMP 97.9
--- NOTE | 2020-08-17 08:27 | RAD ---
EXAM: CHEST ONE VIEW HISTORY: Post pacemaker revision COMPARISON: 08/15/2020 FINDINGS: Multilead left subclavian AICD device is again noted in place. There is one additional lead in place when compared to prior study. Cardiac silhouette and pulmonary vasculature are within normal limits. Large right upper lobe mass is again seen. No pneumothorax or pleural effusion is identified. Chest is otherwise stable compared to prior exam. IMPRESSION: 1. Interval addition of a left AICD lead with 4-lead AICD device now noted in place. 2. No pneumothorax or pleural effusion. 3. Large right upper lobe mass.
[2020-08-17] MEDS: Carvedilol 3.125 MG TAB PO SCH (09:17)
[2020-08-17] MEDS: Ferrous Sulfate 325 MG TAB PO SCH (09:18)
[2020-08-17] MEDS: Cephalexin 250 MG CAP PO SCH (09:18)
[2020-08-17] MEDS: Furosemide 40 MG TAB PO SCH (09:18)
[2020-08-17] MEDS: Multivitamin W/ Minerals 1 TAB PO SCH (09:19)
[2020-08-17] MEDS: Rosuvastatin 20 MG TAB PO SCH (09:19)
[2020-08-17] MEDS: Potassium Chloride 10 MEQ TAB PO SCH (09:19)
[2020-08-17 11:15] VITALS: BP 108/56
--- NOTE | 2020-08-20 14:50 | DIS ---
DATE OF ADMISSION: 08/15/2020 DATE OF DISCHARGE: 08/17/2020 ADMITTING ATTENDING: Richard Wilkins MD DISCHARGE ATTENDING: Fermin Cain MD RESIDENT: Barbara Wilkinson DO CONSULTS: Dr. Young of . PROCEDURES: Chest x-ray done on 08/15/2020 showed large right upper lobe mass. No acute cardiopulmonary process. Right ventricle paced sense lead placement. Electrophysiological testing of ICD and leads at time of implant programming of ICD and antitachycardia pacemaker. Ultrasound fluoroscopic guidance done on 08/16/2020. Chest x-ray done on 08/17/2020 showed no interval addition of left ICD lead with 4-lead AICD device now noted in place. No pneumothorax or pleural effusion. Large right upper lobe mass. PRIMARY DIAGNOSIS: Pacemaker malfunction. SECONDARY DIAGNOSES: Acute kidney injury, chronic obstructive pulmonary disease, lung cancer, and benign prostatic hyperplasia. DISCHARGE MEDICATIONS: 1. Multivitamin one tablet daily. 2. Aspirin 81 mg daily. 3. Coreg 3.125 mg p.o. b.i.d. 4. Protonix 40 mg daily. 5. Rosuvastatin 40 mg daily. 6. Ferrous sulfate 325 mg p.o. daily. 7. Lasix 40 mg p.o. daily. 8. Potassium chloride 10 mEq p.o. daily. 9. [place] 5 q.4. 10. Dulcolax 10 mg daily p.r.n. 11. Keflex 500 mg q.6 for 7 days. 12. Senokot 2 tablets b.i.d. p.r.n. 13. Tums 1000 mg p.o. q.4. HISTORY OF PRESENT ILLNESS/HOSPITAL COURSE: This is a 74-year-old male with a past medical history as above, who presented to the emergency department after being seen in Dr. Young's office. The patient was eating breakfast when his AICD started beeping. He was sent from Dr. Young's office, who recommended coming to the ER to be admitted for AICD repair. The patient was otherwise feeling well. ROS was negative. Of note, the patient chronically has shortness of breath with no oxygen requirement at home currently secondary to right lung cancer. The patient had a right ventricular pacemaker repair done on 08/16/2020, as noted as above. The patient was not found to have any medical issues during hospitalization. He had a mild PRISCA upon admission; however, this improved with gentle IV hydration. The patient was deemed stable enough for discharge on 08/17/2020, a day after his AICD repair, then was told to follow up with Dr. Young, outpatient afterwards. DISPOSITION: Stable. DISCHARGE INSTRUCTIONS: LOCATION: Home. DIET: Regular. ACTIVITY: As tolerated. FOLLOWUP: Follow up in 7 to 10 days with primary care physician and with Dr. Young of . Job ID: [id number] [facility]
--- NOTE | 2020-08-25 19:36 | EKG ---
Test Reason : STAT Blood Pressure : / mmHG Vent. Rate : 140 BPM Atrial Rate : 070 BPM P-R Int : 000 ms QRS Dur : 150 ms QT Int : 260 ms P-R-T Axes : 000 033 261 degrees QTc Int : 396 ms Electronic ventricular pacemaker When compared with ECG of 16-AUG-2020 17:50, (Unconfirmed) Vent. rate has increased BY 56 BPM Confirmed by DAVID VASQUEZ MD ([id number]) on 08/25/2020 7:36:49 PM Referred By: Confirmed By:DAVID VASQUEZ MD
--- NOTE | 2020-08-25 19:36 | EKG ---
Test Reason : POST-OP Blood Pressure : / mmHG Vent. Rate : 084 BPM Atrial Rate : 084 BPM P-R Int : 176 ms QRS Dur : 160 ms QT Int : 458 ms P-R-T Axes : 112 085 268 degrees QTc Int : 541 ms AV dual-paced rhythm Biventricular pacemaker detected Abnormal ECG No previous ECGs available Confirmed by DAVID VASQUEZ MD ([id number]) on 08/25/2020 7:36:17 PM Referred By: PTARICIA Confirmed By:DAVID VASQUEZ MD
--- NOTE | 2020-09-07 16:38 | EKG ---
Test Reason : Blood Pressure : / mmHG Vent. Rate : 073 BPM Atrial Rate : 073 BPM P-R Int : 176 ms QRS Dur : 182 ms QT Int : 478 ms P-R-T Axes : 000 -69 092 degrees QTc Int : 526 ms AV dual-paced rhythm Abnormal ECG Confirmed by FEDERICO HERNÁNDEZ, FRANKIE Simpson ([id number]), editor publications BRITTANY AVENDAÑO ([id number]) on 09/07/2020 4:38:29 PM Referred By: Confirmed By:FRANKIE CABALLERO MD
== END 2020-08-17 11:30 | disposition home or self-care (01) ==
LOC: ERS 15:21 → ERHOLD 17:07 → 2NO 20:25
PROVIDERS: ADMIT Family Medicine; ATTEND Family Medicine
PROC: 02HK3KZ Insertion of Defibrillator Lead into Right Ventricle, Percutaneous Approach (ICD-10-PCS; principal; 2020-08-16)
DX: T82.110A Breakdown (mechanical) of cardiac electrode, initial encounter (principal); I50.22 Chronic systolic (congestive) heart failure; I42.8 Other cardiomyopathies; I44.2 Atrioventricular block, complete; N17.9 Acute kidney failure, unspecified; C34.91 Malignant neoplasm of unspecified part of right bronchus or lung; J44.9 Chronic obstructive pulmonary disease, unspecified; N40.0 Benign prostatic hyperplasia without lower urinary tract symptoms; N31.9 Neuromuscular dysfunction of bladder, unspecified; E78.5 Hyperlipidemia, unspecified; K21.9 Gastro-esophageal reflux disease without esophagitis; Z85.72 Personal history of non-Hodgkin lymphomas; Z87.891 Personal history of nicotine dependence; Z79.82 Long term (current) use of aspirin; Z79.899 Other long term (current) drug therapy; Z20.822 Contact with and (suspected) exposure to COVID-19
CPT/HCPCS: 33216; 71045; 71046; 76942; 80048; 80053; 82553; 83880; 84484 ×2; 85025 ×2; 85610; 85730; 93005 ×3; 94760; 99285; U0003; U0005; 36415; 87635; 93010; C1898; G0378; J0690; J1580; J2405; J2704; Q9967

== ENCOUNTER 2020-08-20 06:54 | Outpatient (CLI) | payer MEDICARE ==
[2020-08-22 08:40] LABS: SARS-CoV-2 PCR by NAA Not Detected (NotDetected)
== END 2020-08-20 06:55 | disposition home or self-care (01) ==
LOC: LABBT 06:54
PROVIDERS: ATTEND Specialist
DX: C34.90 Malignant neoplasm of unspecified part of unspecified bronchus or lung (principal); Z20.822 Contact with and (suspected) exposure to COVID-19
CPT/HCPCS: U0003; U0005; 80053; 82248; 82378; 83615; 84100; 84550; 87635

== ENCOUNTER 2020-08-23 05:47 | Day surgery (SDC) | payer MEDICARE ==
[2020-08-21 13:46] VITALS: BMI 16.9
[2020-08-23] MEDS ORDERED: Acetaminophen 500 MG TAB ONE (06:05)
[2020-08-23] MEDS ORDERED: Ketorolac Tromethamine 30 MG/ML VIAL ONE (06:05)
[2020-08-23] MEDS ORDERED: Bupivacaine PF 0.5% 30 ML VIAL ONE (06:32)
[2020-08-23] MEDS ORDERED: EPINEPHrine 1 MG/ML AMP ONE (06:32)
[2020-08-23] MEDS ORDERED: XYLOCAINE 2%-EPI 1:100,000 20 ML VIAL ONE (06:43)
[2020-08-23] MEDS ORDERED: Midazolam HCl 2 mg/2 ml Vial ONE (06:55)
[2020-08-23] MEDS ORDERED: Fentanyl 100 MCG/2 ML VIAL ONE (06:55)
--- NOTE | 2020-08-23 08:38 | OP ---
DATE OF PROCEDURE: 08/23/2020 PREOPERATIVE DIAGNOSIS: Lung cancer in need of MediPort for antineoplastic chemotherapy administration. POSTOPERATIVE DIAGNOSIS: Lung cancer in need of MediPort for antineoplastic chemotherapy administration. PROCEDURE PERFORMED: Right subclavian vein low-profile MediPort. ANESTHESIA: Intravenous sedation, local 0.5% Marcaine 30 mL mixed with 1% Xylocaine with epinephrine 20 mL. DESCRIPTION OF PROCEDURE: The patient was taken to the operating room, where under intravenous sedation, neck and chest were prepared with ChloraPrep and draped in routine fashion. Magnet placed over the pacemaker defibrillator, left chest. Local anesthetic mixture was infiltrated into the skin and subcutaneous tissue about the operative site. Infraclavicular approach right subclavian vein cannulated with a trocar catheter, J-wire threaded, trocar catheter removed. Skin site enlarged sharply and subcutaneous pocket created with blunt and sharp dissection. Good hemostasis noted. Dilator and Peel-Away sheath placed with J-wire in superior vena cava. Dilator and J-wire removed. Catheter placed with Peel-Away sheath and Peel-Away sheath removed. Under fluoroscopic imaging, catheter tip placed in optimal position in superior vena cava, and catheter tailored to length, connected to the MediPort, which was placed in subcutaneous pocket and secured with 2 interrupted sutures of 3-0 Prolene and subcutaneous tissue was approximated with 3-0 Monocryl, skin with subdermal 4-0 Monocryl and [place] glue applied. MediPort accessed with a Huertas needle, aspirated blood, flushed with heparinized saline solution. Final fluoroscopic images revealed good line and port placement. Job ID: [id number]
--- NOTE | 2020-08-23 09:30 | RAD ---
CHEST 1 VIEW: INDICATION: History of MediPort placement. COMPARISON: Prior exam dated August 17, 2020. FINDINGS: The right upper lobe lung mass is stable. There is a new right subclavian chest wall port with its t ip projecting in the region of the SVC. Multilead ICD is similar-appearing. COPD change is similar- appearing. NO pneumothorax is grossly evident. Bolus change of the lung apices is stable. IMPRESSION: New right chest wall port. No pneumothorax. POS: [facility]
[2020-08-23] MEDS ORDERED: PROPOFOL 200 MG/20 ML VIAL ONE (10:02)
[2020-08-23] MEDS ORDERED: Lidocaine 1% PF 5 ML VIAL ONE (10:02)
== END 2020-08-23 09:45 | disposition home or self-care (01) ==
LOC: SDC 05:47
PROVIDERS: ATTEND Specialist
PROC: 02HV33Z Insertion of Infusion Device into Superior Vena Cava, Percutaneous Approach (ICD-10-PCS; principal; 2020-08-23)
DX: C34.11 Malignant neoplasm of upper lobe, right bronchus or lung (principal); I10 Essential (primary) hypertension; E78.5 Hyperlipidemia, unspecified; F17.210 Nicotine dependence, cigarettes, uncomplicated; J44.9 Chronic obstructive pulmonary disease, unspecified; I25.5 Ischemic cardiomyopathy; K21.9 Gastro-esophageal reflux disease without esophagitis; N40.0 Benign prostatic hyperplasia without lower urinary tract symptoms; Z79.82 Long term (current) use of aspirin; Z79.899 Other long term (current) drug therapy; Z95.810 Presence of automatic (implantable) cardiac defibrillator
CPT/HCPCS: 36561; 71045; C1788; J0171; J0690; J1642; J1885; J2250; J2704; J3010; S0020

== ENCOUNTER 2020-09-28 23:29 | Emergency (ER) | payer MEDICARE ==
[2020-09-29 01:26] LABS: #Lymphocytes 0.3 thou/uL (1.20-3.40); #Monocytes 0.2 thou/uL (0.11-0.59); %Eosinophils 0.7 % (0.0-10.0); %Lymphocytes 7.4 % (21.0-51.0); %Monocytes 4.5 % (0.0-10.0); %Neutrophils 87.4 % (42.0-75.0); Hemoglobin 8.1 g/dL (14.0-18.0); Mean Corpuscular HGB CONC 33.1 g/dL (32.0-36.0); Mean Corpuscular Hemoglobin 30.9 pg (27.0-31.0); Mean Corpuscular Volume 93.2 fL (78.0-98.0); Mean Platelet Volume 7.2 fL (7.4-10.4); Platelet Count 162 thou/uL (130-400); Red Blood Cell (RBC) Count 2.63 mill/uL (4.70-6.10); White Blood Cell (WBC) Count 3.5 thou/uL (4.8-10.8)
[2020-09-29 01:49] LABS: Albumin 3.2 g/dL (3.4-4.8)
[2020-09-29 01:50] LABS: Chloride 101 mmol/L (98-107); Potassium 3.5 mmol/L (3.5-5.1); Sodium 137 mmol/L (136-145)
[2020-09-29 01:52] LABS: Globulin 3.3 g/dL (2.4-3.5); Glucose 130 mg/dL (83-110); Protein, Total 6.5 g/dL (5.8-8.1)
[2020-09-29 01:53] LABS: Bilirubin, Total 0.3 mg/dL (0.2-1.2); Carbon Dioxide 21 mmol/L (23-31)
[2020-09-29 01:54] LABS: Alkaline Phosphatase 53 U/L (40-110)
[2020-09-29 01:55] LABS: Calc. Creatinine Clearance 0 mL/min (70-130)
[2020-09-29 01:56] LABS: BUN (Urea Nitrogen) 32 mg/dL (8.4-25.7)
[2020-09-29 01:57] LABS: ALT (SGPT) 10 U/L (8-55); AST (SGOT) 19 U/L (5-34)
[2020-09-29] MEDS ORDERED: Dexamethasone 10 MG/ML VIAL ONE (02:03)
[2020-09-29 02:18] LABS: Anion Gap 19 mmol/L (10-20)
--- NOTE | 2020-09-29 08:17 | CT ---
PRELIMINARY REPORT/[facility]/AFTER HOURS PROCEDURE CTA CHEST WITH INTRAVENOUS CONTRAST: CLINICAL HISTORY: A 74-year-old male presents by EMS complaining of shortness of breath for two days and has a history of COPD and lung cancer. Patient used his own albuterol prior to EMS arrival without success. EMS provided the patient with oxygen, Solu-Medrol and a breathing treatment. IV fluid was given prior to arrival. Patient was tachypneic on arrival anxious is currently breathing normally no acute distress. TECHNIQUE: Axial CTA images of the chest with intravenous contrast. Three-dimensional MIP/volume rendered reform ations were performed. CONTRAST: With Isovue. COMPARISON: None provided. FINDINGS: A left-sided pacemaker device is present. Right-sided Port-A-Cath is present. PULMONARY ARTERIES: There is no intraluminal filling defect suspicious for PE. AORTA: No thoracic aortic aneurysm or dissection. LUNGS: Emphysematous changes are present within the upper lung mcgee bilaterally. A chest wall mass is seen within the right anterior thorax measuring roughly 7.0 x 3.4 x 4.3 cm. There is erosion seen of the anterior aspect of the second and third right rib. HEART AND MEDIASTINUM: No cardiomegaly. No significant pericardial effusion. LYMPH NODES: No lymphadenopathy. BONES: No focal osseous abnormality or acute fracture. CHEST WALL AND UPPER ABDOMEN: A solid mass is seen off the upper pole of the left kidney measuring 3. 9 x 3.7 cm in size. Simple cysts is present within the left lobe of the liver. The chest wall is unremarkable. IMPRESSION: 1. No evidence of pulmonary embolism. 2. Chest wall mass present within the anterior right upper thorax with erosion of the anterior aspect of the second and third ribs. 3. Solid nodule involving the upper pole of the left kidney. The findings are suspicious for renal c ell carcinoma. Emphysematous changes are seen within both upper lung mcgee. ELECTRONICALLY SIGNED BY: Tony Ignacio MD Sep 29, 2020 1:21:19 AM [employer] DIRECTOR This report is intended for review by the ordering physician only, in accordance of law. If you recei ve this report in error, please call [facility] at [phone]. FINAL REPORT EMERGENT AFTER HOURS CT ANGIOGRAM THORAX WITH IV CONTRAST AND 3D RECONSTRUCTIONS: HISTORY: Lung cancer. Patient complains of shortness of breath for two days. COMPARISON: PET/CT exam on 08/13/2020. IMPRESSION: 1. No CT evidence of a pulmonary embolus. 2. Thoracic aorta is normal in caliber without evidence of an aortic dissection. Vascular calcificati ons are seen. 3. Multilead left subclavian AICD device in place. 4. Pleural-based right upper lobe mass which has decreased in size with lucencies and areas of cavita tion now present in the mass when compared to prior PET/CT exam. As noted on the PET/CT exam, there is erosion of the second and third anterior ribs. 5. Emphysematous changes within the lungs, predominantly in the upper lobes. 6. Multiple small patchy parenchymal air space densities in the posterior aspects of each lower lobe, which could be related to inflammatory or infectious process. 7. Superior pole left renal mass demonstrating FDG avidity on prior PET/CT scan, suggesting renal austen l carcinoma. 8. Hypodense lesions within the liver and visualized left kidney, likely related to cysts. 9. Increased density within the anterior aspect of the distal subcutaneous soft tissues right arm, zarate ggesting site of extravasation of intravenous contrast. Findings are in agreement with the preliminary report by [facility]. CODE QA Transcribed Date/Time: 09/29/2020 10:10 AM
[2020-09-29] MEDS ORDERED: Iopamidol-370 76% 500 ML 1 ML ONE (13:31)
--- NOTE | 2020-10-05 10:20 | EKG ---
Test Reason : Blood Pressure : / mmHG Vent. Rate : 094 BPM Atrial Rate : 094 BPM P-R Int : 172 ms QRS Dur : 164 ms QT Int : 442 ms P-R-T Axes : 000 050 079 degrees QTc Int : 552 ms AV sequential or dual chamber electronic pacemaker Confirmed by FEDERICO HERNÁNDEZ, FRANKIE Simpson ([id number]), graphics editor BRITTANY AVENDAÑO ([id number]) on 10/05/2020 10:20:15 AM Referred By: Confirmed By:FRANKIE CABALLERO MD
== END 2020-09-29 03:10 | disposition home or self-care (01) ==
LOC: ERS 23:29
DX: J44.1 Chronic obstructive pulmonary disease with (acute) exacerbation (principal); Z87.891 Personal history of nicotine dependence; Z71.6 Tobacco abuse counseling; Z20.822 Contact with and (suspected) exposure to COVID-19; Z79.899 Other long term (current) drug therapy
CPT/HCPCS: 36415; 71275; 80053; 83880; 84484; 85025; 93005; 99406; J1100; Q9967

== ENCOUNTER 2020-10-02 10:44 | Emergency (ER) | payer MEDICARE ==
--- NOTE | 2020-10-02 11:29 | RAD ---
Exam: Chest one view HISTORY:Difficulty breathing. Comparison: 08/23/2020 FINDINGS: Cardiac silhouette:Stable cardiac silhouette. Stable left-sided defibrillator Aorta: Unremarkable Pulmonary vessels: Normal Costophrenic angles: Clear LUNGS: Persistent hyperinflation. Decreased opacification of the right lung. Residual opacity likely related to residual disease/tumor. Stable right-sided Mediport catheter. Pneumothorax: None Osseous abnormalities: None IMPRESSION: 1. COPD 2. Minimal decrease in the overall size of a known right lung mass. Residual opacities likely represe nt residual tumor.
[2020-10-02 12:18] LABS: ALT (SGPT) 21 U/L (8-55); AST (SGOT) 24 U/L (5-34); Albumin 3.5 g/dL (3.4-4.8); Alkaline Phosphatase 58 U/L (40-110); Anion Gap 16 mmol/L (10-20); BUN (Urea Nitrogen) 50 mg/dL (8.4-25.7); Bilirubin, Total 0.4 mg/dL (0.2-1.2); Calc. Creatinine Clearance 0 mL/min (70-130); Calcium 9.2 mg/dL (7.8-10.44); Carbon Dioxide 25 mmol/L (23-31); Chloride 101 mmol/L (98-107); Globulin 4.4 g/dL (2.4-3.5); Glucose 144 mg/dL (83-110); Potassium 4.3 mmol/L (3.5-5.1); Protein, Total 7.9 g/dL (5.8-8.1); Sodium 138 mmol/L (136-145)
[2020-10-02 12:35] LABS: CKMB 1.1 ng/mL (0-6.6)
[2020-10-02 12:37] LABS: Band 20 % (5-11); Eosinophils 1 % (0-10); Hemoglobin 9.4 g/dL (14.0-18.0); Lymphocytes 12 % (21-51); MDiff Complete? YES; Mean Corpuscular Hemoglobin 30.7 pg (27.0-31.0); Mean Corpuscular Volume 95.8 fL (78.0-98.0); Mean Platelet Volume 6.8 fL (7.4-10.4); Monocytes 16 % (0-10); Myelocyte 1 % (0-0); Neutrophil 50 % (42-75); Platelet Count 200 thou/uL (130-400); Platelet Morphology Comment Appears Adequate; Polychromasia SLIGHT = 2-3 cells (100X) (0-2/hpf); RBC Distribution Width 15.9 % (11.5-14.5); Red Blood Cell (RBC) Count 3.08 mill/uL (4.70-6.10); White Blood Cell (WBC) Count 3.6 thou/uL (4.8-10.8)
[2020-10-02] MEDS ORDERED: Albuterol Sulfate 1.25 MG/3 ML NEB ONE (14:22)
[2020-10-02] MEDS ORDERED: Albuterol Sulfate 2.5 mg/0.5 ml Neb ONE (14:27)
[2020-10-02] MEDS ORDERED: Dexamethasone 10 MG/ML VIAL ONE (14:28)
--- NOTE | 2020-10-05 16:07 | EKG ---
Test Reason : SOB Blood Pressure : / mmHG Vent. Rate : 049 BPM Atrial Rate : 049 BPM P-R Int : 174 ms QRS Dur : 146 ms QT Int : 512 ms P-R-T Axes : 000 092 098 degrees QTc Int : 462 ms AV dual-paced rhythm Abnormal ECG Confirmed by JAMARCUS PRASAD DO ([id number]), senior editor BRITTANY AVENDAÑO ([id number]) on 10/05/2020 4:07:22 PM Referred By: Confirmed By:JAMARCUS PRASAD DO
== END 2020-10-02 13:05 | disposition home or self-care (01) ==
LOC: ERS 10:44
DX: J44.9 Chronic obstructive pulmonary disease, unspecified (principal); C34.90 Malignant neoplasm of unspecified part of unspecified bronchus or lung; F17.210 Nicotine dependence, cigarettes, uncomplicated; Z79.82 Long term (current) use of aspirin; Z79.899 Other long term (current) drug therapy
CPT/HCPCS: 71045; 80053; 82553; 83880; 84484; 85025; 93005; 94640; 96374; J1100; J7611; J7620

== ENCOUNTER 2020-10-07 12:53 | Inpatient (IN) | payer MEDICARE ==
[2020-10-07 13:52] LABS: Bacteria/HPF 3+ HPF (None Seen); Bilirubin Negative (Negative); Blood, Urine Trace (Negative); Clarity Turbid (Clear); Glucose, Urine (Dipstick) Normal (Negative); Ketone, Urine Negative (Negative); Leukocyte 500 Leu/uL (Negative); Nitrite Negative (Negative); Protein, Urine (Dipstick) 30 mg/dL (Neg-Trace); Specific Gravity, Urine 1.013 (1.002-1.036); Squamous Epithelial None Seen HPF (0-3); Urobilinogen Normal mg/dL (Less than 2); WBC/HPF Greater than 50 HPF (0-3)
[2020-10-07 14:23] LABS: #Lymphocytes 0.3 thou/uL (1.20-3.40); #Monocytes 1.3 thou/uL (0.11-0.59); #Neutrophils 10.2 thou/uL (1.40-6.50); %Eosinophils 0.1 % (0.0-10.0); %Lymphocytes 2.5 % (21.0-51.0); %Monocytes 10.6 % (0.0-10.0); %Neutrophils 86.7 % (42.0-75.0); Hemoglobin 11.7 g/dL (14.0-18.0); Mean Corpuscular HGB CONC 32.5 g/dL (32.0-36.0); Mean Corpuscular Hemoglobin 30.3 pg (27.0-31.0); Mean Corpuscular Volume 93.3 fL (78.0-98.0); Mean Platelet Volume 6.7 fL (7.4-10.4); Platelet Count 343 thou/uL (130-400); RBC Distribution Width 16.4 % (11.5-14.5); Red Blood Cell (RBC) Count 3.84 mill/uL (4.70-6.10); White Blood Cell (WBC) Count 11.8 thou/uL (4.8-10.8)
[2020-10-07 14:49] LABS: ALT (SGPT) 39 U/L (8-55); AST (SGOT) 24 U/L (5-34); Albumin 3.7 g/dL (3.4-4.8); Alkaline Phosphatase 67 U/L (40-110); Anion Gap 18 mmol/L (10-20); BUN (Urea Nitrogen) 83 mg/dL (8.4-25.7); Bilirubin, Total 0.4 mg/dL (0.2-1.2); Calc. Creatinine Clearance 0 mL/min (70-130); Calcium 9.7 mg/dL (7.8-10.44); Carbon Dioxide 28 mmol/L (23-31); Chloride 94 mmol/L (98-107); Globulin 4.6 g/dL (2.4-3.5); Glucose 141 mg/dL (83-110); Potassium 5.1 mmol/L (3.5-5.1); Protein, Total 8.3 g/dL (5.8-8.1); Sodium 135 mmol/L (136-145)
[2020-10-07 15:08] LABS: CKMB 1.3 ng/mL (0-6.6)
[2020-10-07 17:03] LABS: SARS-CoV-2 NAA Rapid Test Not Detected (NotDetected)
[2020-10-07 17:50] LABS: Lactic Acid 2.8 mmol/L (0.5-2.2)
[2020-10-07 17:58] LABS: Troponin I 0.035 ng/mL (< 0.028)
[2020-10-07] MEDS: cefTRIAXone\\ROCEPHIN 1 GM in Sodium Chloride 0.9% 100 ML IVPB SCH (18:59)
[2020-10-07] MEDS: Lactated Ringer's 1,000 ML IV SCH (20:15)
[2020-10-07] MEDS: HYDROcodone/Acetaminophen 5/325 mg Tablet PO SCH (20:17)
[2020-10-07] MEDS: Carvedilol 3.125 MG TAB PO SCH (20:18)
[2020-10-07] MEDS: Mirtazapine 15 MG TAB PO SCH (20:19)
[2020-10-07] MEDS: Rivaroxaban 15 MG TAB PO SCH (20:44)
[2020-10-07 22:27] LABS: Troponin I 0.026 ng/mL (< 0.028)
[2020-10-07 22:56] LABS: Phosphorus 3.7 mg/dL (2.3-4.7)
[2020-10-08 00:15] VITALS: BMI 15.0
[2020-10-08] MEDS: HYDROcodone/Acetaminophen 5/325 mg Tablet PO SCH ×2 (01:37→05:37)
[2020-10-08 05:44] LABS: #Lymphocytes 0.4 thou/uL (1.20-3.40); #Monocytes 0.9 thou/uL (0.11-0.59); #Neutrophils 7.9 thou/uL (1.40-6.50); %Eosinophils 0.2 % (0.0-10.0); %Lymphocytes 4.1 % (21.0-51.0); %Monocytes 9.4 % (0.0-10.0); %Neutrophils 86.3 % (42.0-75.0); Hemoglobin 10.3 g/dL (14.0-18.0); Mean Corpuscular HGB CONC 32.4 g/dL (32.0-36.0); Mean Corpuscular Hemoglobin 30.4 pg (27.0-31.0); Mean Corpuscular Volume 93.8 fL (78.0-98.0); Mean Platelet Volume 6.6 fL (7.4-10.4); Platelet Count 263 thou/uL (130-400); RBC Distribution Width 16.8 % (11.5-14.5); Red Blood Cell (RBC) Count 3.38 mill/uL (4.70-6.10); White Blood Cell (WBC) Count 9.1 thou/uL (4.8-10.8)
[2020-10-08 05:59] LABS: Anion Gap 17 mmol/L (10-20); BUN (Urea Nitrogen) 66 mg/dL (8.4-25.7); Calc. Creatinine Clearance 27 mL/min (70-130); Calcium 8.4 mg/dL (7.8-10.44); Carbon Dioxide 22 mmol/L (23-31); Chloride 101 mmol/L (98-107); Glucose 95 mg/dL (83-110); Sodium 136 mmol/L (136-145)
[2020-10-08] MEDS ORDERED: HYDROcodone/Acetaminophen 5/325 mg Tablet PO PRN (06:05)
[2020-10-08] MEDS ORDERED: Potassium Chloride 10 MEQ TAB PO SCH (09:00)
[2020-10-08] MEDS ORDERED: Rosuvastatin 20 MG TAB PO SCH (09:00)
[2020-10-08] MEDS ORDERED: Ferrous Sulfate 325 MG TAB PO SCH (09:00)
[2020-10-08] MEDS ORDERED: Multivitamin W/ Minerals 1 TAB PO SCH (09:00)
[2020-10-08] MEDS ORDERED: Aspirin 81 mg Enteric Coated Tablet PO SCH (09:00)
[2020-10-08] MEDS: Carvedilol 3.125 MG TAB PO SCH ×2 (09:35→21:31)
[2020-10-08] MEDS: Rivaroxaban 15 MG TAB PO SCH ×2 (09:37→21:31)
[2020-10-08] MEDS: Lactated Ringer's 1,000 ML IV SCH ×2 (09:38→21:32)
[2020-10-08] MEDS: Mirtazapine 15 MG TAB PO SCH (21:31)
[2020-10-08] MEDS: cefTRIAXone\\ROCEPHIN 1 GM in Sodium Chloride 0.9% 100 ML IVPB SCH (21:31)
[2020-10-08] MEDS: HYDROcodone/Acetaminophen 5/325 mg Tablet PO PRN (22:44)
[2020-10-08] MEDS ORDERED: Lactated Ringer's 1,000 ML IV SCH (23:00)
[2020-10-08] MEDS ORDERED: cefTRIAXone\\ROCEPHIN 1 GM in Sodium Chloride 0.9% 100 ML IVPB SCH (23:00)
[2020-10-09 05:37] LABS: #Lymphocytes 0.3 thou/uL (1.20-3.40); #Monocytes 0.6 thou/uL (0.11-0.59); #Neutrophils 6.1 thou/uL (1.40-6.50); %Eosinophils 0.4 % (0.0-10.0); %Lymphocytes 3.6 % (21.0-51.0); %Monocytes 8.8 % (0.0-10.0); %Neutrophils 87.2 % (42.0-75.0); Hemoglobin 9.3 g/dL (14.0-18.0); Mean Corpuscular HGB CONC 32.6 g/dL (32.0-36.0); Mean Corpuscular Hemoglobin 30.8 pg (27.0-31.0); Mean Corpuscular Volume 94.6 fL (78.0-98.0); Mean Platelet Volume 6.5 fL (7.4-10.4); Platelet Count 234 thou/uL (130-400); RBC Distribution Width 17.2 % (11.5-14.5); Red Blood Cell (RBC) Count 3.02 mill/uL (4.70-6.10)
[2020-10-09 05:44] LABS: Anion Gap 12 mmol/L (10-20); BUN (Urea Nitrogen) 50 mg/dL (8.4-25.7); Calc. Creatinine Clearance 30 mL/min (70-130); Calcium 8.2 mg/dL (7.8-10.44); Carbon Dioxide 25 mmol/L (23-31); Chloride 104 mmol/L (98-107); Glucose 89 mg/dL (83-110); Potassium 3.9 mmol/L (3.5-5.1); Sodium 137 mmol/L (136-145)
[2020-10-09] MEDS: Multivitamin W/ Minerals 1 TAB PO SCH (08:55)
[2020-10-09] MEDS: Ferrous Sulfate 325 MG TAB PO SCH (08:56)
[2020-10-09] MEDS: Rosuvastatin 20 MG TAB PO SCH (08:56)
[2020-10-09] MEDS: Potassium Chloride 10 MEQ TAB PO SCH (08:56)
[2020-10-09] MEDS: Aspirin 81 mg Enteric Coated Tablet PO SCH (08:56)
[2020-10-09] MEDS: Carvedilol 3.125 MG TAB PO SCH ×2 (08:56→19:50)
[2020-10-09] MEDS: HYDROcodone/Acetaminophen 5/325 mg Tablet PO PRN ×2 (08:57→19:50)
[2020-10-09] MEDS: Rivaroxaban 15 MG TAB PO SCH ×2 (10:48→19:49)
[2020-10-09] MEDS: Lactated Ringer's 1,000 ML IV SCH ×2 (12:14→19:54)
[2020-10-09] MEDS: Mirtazapine 15 MG TAB PO SCH (19:50)
[2020-10-09] MEDS ORDERED: cefTRIAXone\\ROCEPHIN 1 GM in Sodium Chloride 0.9% 100 ML IVPB SCH (21:00)
[2020-10-10 05:00] LABS: #Eosinphils 0.1 thou/uL (0.0-0.7); #Lymphocytes 0.3 thou/uL (1.20-3.40); #Monocytes 0.6 thou/uL (0.11-0.59); #Neutrophils 5.8 thou/uL (1.40-6.50); %Basophils 0.3 % (0.0-1.0); %Eosinophils 0.9 % (0.0-10.0); %Lymphocytes 4.2 % (21.0-51.0); %Monocytes 9.4 % (0.0-10.0); %Neutrophils 85.1 % (42.0-75.0); Hemoglobin 8.9 g/dL (14.0-18.0); Mean Corpuscular HGB CONC 32.2 g/dL (32.0-36.0); Mean Corpuscular Hemoglobin 30.6 pg (27.0-31.0); Mean Corpuscular Volume 95.1 fL (78.0-98.0); Mean Platelet Volume 6.5 fL (7.4-10.4); Platelet Count 205 thou/uL (130-400); RBC Distribution Width 16.9 % (11.5-14.5); Red Blood Cell (RBC) Count 2.89 mill/uL (4.70-6.10); White Blood Cell (WBC) Count 6.8 thou/uL (4.8-10.8)
[2020-10-10 05:17] LABS: Anion Gap 11 mmol/L (10-20); BUN (Urea Nitrogen) 38 mg/dL (8.4-25.7); Calc. Creatinine Clearance 29 mL/min (70-130); Calcium 7.8 mg/dL (7.8-10.44); Carbon Dioxide 23 mmol/L (23-31); Chloride 110 mmol/L (98-107); Glucose 97 mg/dL (83-110); Potassium 4.2 mmol/L (3.5-5.1); Sodium 140 mmol/L (136-145)
[2020-10-10] MEDS: Ferrous Sulfate 325 MG TAB PO SCH (08:03)
[2020-10-10] MEDS: Carvedilol 3.125 MG TAB PO SCH ×2 (08:03→21:03)
[2020-10-10] MEDS: Multivitamin W/ Minerals 1 TAB PO SCH (08:03)
[2020-10-10] MEDS: Potassium Chloride 10 MEQ TAB PO SCH (08:03)
[2020-10-10] MEDS: Rivaroxaban 15 MG TAB PO SCH ×2 (08:03→21:03)
[2020-10-10] MEDS: Aspirin 81 mg Enteric Coated Tablet PO SCH (08:03)
[2020-10-10] MEDS: Rosuvastatin 20 MG TAB PO SCH (08:03)
[2020-10-10] MEDS: Lactated Ringer's 1,000 ML IV SCH ×2 (08:04→17:46)
[2020-10-10] MEDS ORDERED: Nitrofurantoin Monohyd/M-Cryst 100 MG CAP PO SCH (10:00)
[2020-10-10] MEDS: HYDROcodone/Acetaminophen 5/325 mg Tablet PO PRN ×2 (17:48→21:41)
[2020-10-10] MEDS: Nitrofurantoin Monohyd/M-Cryst 100 MG CAP PO SCH (21:03)
[2020-10-10] MEDS: Mirtazapine 15 MG TAB PO SCH (21:03)
[2020-10-11] MEDS: Lactated Ringer's 1,000 ML IV SCH (04:56)
[2020-10-11 05:11] LABS: #Eosinphils 0.1 thou/uL (0.0-0.7); #Lymphocytes 0.4 thou/uL (1.20-3.40); #Monocytes 0.5 thou/uL (0.11-0.59); #Neutrophils 6.7 thou/uL (1.40-6.50); %Basophils 0.2 % (0.0-1.0); %Eosinophils 1.4 % (0.0-10.0); %Lymphocytes 4.9 % (21.0-51.0); %Monocytes 6.3 % (0.0-10.0); %Neutrophils 87.2 % (42.0-75.0); Hemoglobin 9.1 g/dL (14.0-18.0); Mean Corpuscular HGB CONC 32.6 g/dL (32.0-36.0); Mean Corpuscular Hemoglobin 31.3 pg (27.0-31.0); Mean Platelet Volume 6.4 fL (7.4-10.4); Platelet Count 205 thou/uL (130-400); Red Blood Cell (RBC) Count 2.91 mill/uL (4.70-6.10); White Blood Cell (WBC) Count 7.7 thou/uL (4.8-10.8)
[2020-10-11 05:33] LABS: Anion Gap 10 mmol/L (10-20); BUN (Urea Nitrogen) 28 mg/dL (8.4-25.7); Calc. Creatinine Clearance 37 mL/min (70-130); Calcium 7.9 mg/dL (7.8-10.44); Carbon Dioxide 23 mmol/L (23-31); Chloride 108 mmol/L (98-107); Glucose 94 mg/dL (83-110); Potassium 4.2 mmol/L (3.5-5.1); Sodium 137 mmol/L (136-145)
[2020-10-11] MEDS: Rosuvastatin 20 MG TAB PO SCH (09:43)
[2020-10-11] MEDS: Aspirin 81 mg Enteric Coated Tablet PO SCH (09:43)
[2020-10-11] MEDS: Multivitamin W/ Minerals 1 TAB PO SCH (09:44)
[2020-10-11] MEDS: Carvedilol 3.125 MG TAB PO SCH ×2 (09:44→20:04)
[2020-10-11] MEDS: Ferrous Sulfate 325 MG TAB PO SCH (09:44)
[2020-10-11] MEDS: Nitrofurantoin Monohyd/M-Cryst 100 MG CAP PO SCH ×2 (09:44→20:04)
[2020-10-11] MEDS: Potassium Chloride 10 MEQ TAB PO SCH (09:44)
[2020-10-11] MEDS: Rivaroxaban 15 MG TAB PO SCH (09:49)
[2020-10-11] MEDS: HYDROcodone/Acetaminophen 5/325 mg Tablet PO PRN ×2 (09:49→18:13)
[2020-10-11] MEDS ORDERED: Polyethylene Glycol 3350 17 GM Packet PO PRN (14:05)
[2020-10-11] MEDS: Mirtazapine 15 MG TAB PO SCH (20:04)
[2020-10-12] MEDS: Aspirin 81 mg Enteric Coated Tablet PO SCH (09:03)
[2020-10-12] MEDS: Rivaroxaban 10 MG TAB PO SCH (09:04)
[2020-10-12] MEDS: Rosuvastatin 20 MG TAB PO SCH (09:04)
[2020-10-12] MEDS: Carvedilol 3.125 MG TAB PO SCH ×2 (09:04→21:49)
[2020-10-12] MEDS: Multivitamin W/ Minerals 1 TAB PO SCH (09:04)
[2020-10-12] MEDS: Nitrofurantoin Monohyd/M-Cryst 100 MG CAP PO SCH ×2 (09:05→21:49)
[2020-10-12] MEDS: Potassium Chloride 10 MEQ TAB PO SCH (09:05)
[2020-10-12] MEDS: Ferrous Sulfate 325 MG TAB PO SCH (09:05)
[2020-10-12] MEDS: HYDROcodone/Acetaminophen 5/325 mg Tablet PO PRN (17:33)
[2020-10-12] MEDS: Lactated Ringer's 1,000 ML IV SCH (18:24)
[2020-10-12] MEDS: Mirtazapine 15 MG TAB PO SCH (21:49)
[2020-10-13] MEDS: Lactated Ringer's 1,000 ML IV SCH (08:53)
[2020-10-13] MEDS: Aspirin 81 mg Enteric Coated Tablet PO SCH (08:54)
[2020-10-13] MEDS: Multivitamin W/ Minerals 1 TAB PO SCH (08:55)
[2020-10-13] MEDS: Ferrous Sulfate 325 MG TAB PO SCH (08:55)
[2020-10-13] MEDS: Rosuvastatin 20 MG TAB PO SCH (08:55)
[2020-10-13] MEDS: Rivaroxaban 10 MG TAB PO SCH (08:55)
[2020-10-13] MEDS: Potassium Chloride 10 MEQ TAB PO SCH (08:56)
[2020-10-13] MEDS: Carvedilol 3.125 MG TAB PO SCH (08:56)
[2020-10-13] MEDS: Nitrofurantoin Monohyd/M-Cryst 100 MG CAP PO SCH (08:56)
[2020-10-13 09:10] VITALS: TEMP 98.7
[2020-10-13 10:51] VITALS: BP 116/59
[2020-10-13] MEDS: HYDROcodone/Acetaminophen 5/325 mg Tablet PO PRN (11:19)
== END 2020-10-13 13:50 | disposition home or self-care (01) | DRG 698 ==
LOC: ERS 12:53 → ONC 15:10 → OBSVTOIN 15:10 → UNDODISIN 10-08 14:20
PROVIDERS: ADMIT Family Medicine; ATTEND Family Medicine
DX: T83.518A Infection and inflammatory reaction due to other urinary catheter, initial encounter (principal); E43 Unspecified severe protein-calorie malnutrition; N17.9 Acute kidney failure, unspecified; I50.22 Chronic systolic (congestive) heart failure; C34.11 Malignant neoplasm of upper lobe, right bronchus or lung; Z68.1 Body mass index [BMI] 19.9 or less, adult; R64 Cachexia; N39.0 Urinary tract infection, site not specified; E86.0 Dehydration; N31.9 Neuromuscular dysfunction of bladder, unspecified; K21.9 Gastro-esophageal reflux disease without esophagitis; E78.5 Hyperlipidemia, unspecified; R94.31 Abnormal electrocardiogram [ECG] [EKG]; N18.9 Chronic kidney disease, unspecified; Z66 Do not resuscitate; B95.2 Enterococcus as the cause of diseases classified elsewhere; J44.9 Chronic obstructive pulmonary disease, unspecified; Z85.528 Personal history of other malignant neoplasm of kidney; Z95.810 Presence of automatic (implantable) cardiac defibrillator; Z90.49 Acquired absence of other specified parts of digestive tract; Z79.82 Long term (current) use of aspirin; Z87.891 Personal history of nicotine dependence; Z86.718 Personal history of other venous thrombosis and embolism; Z85.72 Personal history of non-Hodgkin lymphomas; Z92.21 Personal history of antineoplastic chemotherapy
CPT/HCPCS: 0240U; 36415; 51702; 71045; 80048; 80053; 81003; 81015; 82553; 83605; 84100; 84484; 85025; 87040; 87077; 87086; 87186; 93005; 96365; G0378; J0696; J1642; J3490

== ENCOUNTER 2021-01-14 13:40 | Outpatient (CLI) | payer MEDICARE ==
[2021-01-14] MEDS ORDERED: Iopamidol 370 76% 100 ML VIAL ONE (13:41)
[2021-01-14] MEDS ORDERED: Iopamidol 370 76% 50 ML VIAL FS ONE (13:41)
== END 2021-01-14 13:41 | disposition home or self-care (01) ==
LOC: CT 13:40
PROVIDERS: ATTEND Internal Medicine Medical Oncology
DX: C34.11 Malignant neoplasm of upper lobe, right bronchus or lung (principal); N28.89 Other specified disorders of kidney and ureter; J43.9 Emphysema, unspecified
CPT/HCPCS: 71260; 74160; 82565; Q9967

== ENCOUNTER 2021-04-09 14:05 | Outpatient (CLI) | payer MEDICARE ==
[~2021-04-09 14:05] MED LIST: Iopamidol 370 76% 100 ML VIAL ONE
== END 2021-04-09 14:06 | disposition home or self-care (01) ==
LOC: BICCT 14:05
PROVIDERS: ATTEND Internal Medicine Medical Oncology
DX: C34.11 Malignant neoplasm of upper lobe, right bronchus or lung (principal); R22.2 Localized swelling, mass and lump, trunk; J47.9 Bronchiectasis, uncomplicated; N28.89 Other specified disorders of kidney and ureter; I70.0 Atherosclerosis of aorta; K76.89 Other specified diseases of liver
CPT/HCPCS: 71260; 74160; Q9967